=== PATIENT | male | born 1955 | race Caucasian/White ===

== ENCOUNTER 2016-07-01 09:40 | Inpatient (IN) | payer BC, OTHER, MEDICARE ==
[~2016-07-01] VITALS: Ht 172.7 cm; Wt 73.2 kg
[~2016-07-01 09:40] MED LIST: **UNRESOLVED NON-FORMULARY MED ORDER XX SCH
[2016-07-01] MEDS ORDERED: DOCUSATE SODIUM 100 MG CAP PO PRN (11:30)
[2016-07-01] MEDS ORDERED: CALCIUM CARBONATE 500 MG CHEW U/D PO PRN (11:30)
[2016-07-01] MEDS ORDERED: ACETAMINOPHEN 325 MG TAB PO PRN (11:30)
[2016-07-01] MEDS ORDERED: NYSTATIN 100,000 UNITS/GM TOPICAL PWD 15 GM TOP PRN (11:30)
[2016-07-01] MEDS ORDERED: TRIAMCINOLONE ACET 0.1% CREAM 80 GM TOP PRN (11:30)
[2016-07-01] MEDS ORDERED: EUCERIN 120GM CREAM TOP PRN (11:30)
[2016-07-01] MEDS ORDERED: SENNA 8.6 MG TAB (SENOKOT) PO PRN (11:30)
[2016-07-01 12:05] VITALS: BP 117/58
[2016-07-01] MEDS ORDERED: NON-FORMULARY 1 EA EA IV SCH (12:15)
[2016-07-01] MEDS ORDERED: HYDROmorphone 2 MG TAB PO PRN (12:15)
[2016-07-01] MEDS: (RENVELA) SEVELAMER **CARBONate** 800 MG TAB PO SCH ×2 (12:30→17:31)
--- NOTE | 2016-07-01 13:14 | CR.PDOC ---
[facility] Consultation Consultation ATTENDING: Dr. Henning PCP: Dr Boogie Rheumatology Dr Barrios [facility] CC: ARU rehab HPI: 61yoM transferred from [facility] to [facility] ARU 07/01/16 following treatment from 05/17/16-07/01/16 for severe sepsis/group A strep bacteremia, severe RLE cellulitis on pre existing pyoderma gangrenosum. Pt states his RLE is continuing to improve. He still is feeling very weak. He continues to have chronic pain in his Rt hip and shoulder. Denies any fevers, chills, MOBLEY, CP, SOB, cough, palpitations, abdominal pain, N/ V/D or changes in bowel or bladder habits. Upon presentation to the hospital the hospitalist team was consulted to assist with medical management. PMH Severe sepsis from Group A Strep bacteremia Severe RLE cellulitis on pre existing pyoderma gangrenosum ZAC progressing to ESRD requiring HD ( h/o CKD) Acute systolic CHF/Sepsis induced CMP. Metabolic encephalopathy chronic rt shoulder pain anemia in CKD. S/P 2 Units PRBC 05/29/16, epo as per Nephro. Cervical DDD chronic narcotic use DM GERD Immunosuppression ( on Remicade/methotrexate/prednisone prior to admission) Monoclonal gammopathy of unknown significance MARCEL OA Sarcoidosis Tourette syndrome PSHX: Rt hip surgery x 2 H/O cervical discectomy bedside exploration of muscles RLE Gen Surgery. [facility]. MRI RLE. [facility]. no necrotizing fasciitis Permacath placement. [facility]. SOCHX: Resides in: [place] uses scooter for mobility in past. 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 Children: Alive, well ROS: As noted in HPI, otherwise 11pt ROS of systems reviewed and remarkable only forchronic Rt hip and shoulder pain. PE: GEN: 61yoM, thin appearing. No acute distress. Alert and oriented x 3. Pleasant , interactive. HEENT: Normocephalic, atraumatic. Pupils are equal, round, and reactive to light. Extraocular movements are intact. No nystagmus appreciated. Sclera are nonicteric. Conjunctiva without injection. Nose midline. Nasal turbinates without bogginess No facial asymmetry. Moist mucous membranes. Dentition poor. Pharynx pink and moist. Neck supple, trachea midline. No lymphadenopathy or thyromegaly appreciated. CHEST: Regular rate and rhythm, +S1, +S2 LUNGS: Clear to auscultation bilaterally. No wheezes, rales, or rhonchi. Breathing appears symmetric and easy. Patient is speaking in full sentences. No accessory muscle use. ABD: Round, soft, non-tender, non-distended. +Bowel sounds throughout. No rebound or guarding. No costovertebral angle tenderness. EXT: Pulses 2+ bilaterally dorsalis pedis and radial. No lower extremity edema appreciated. SKIN: [place], dry, warm. Capillary refill <2sec. Chronic skin changes b/l. Dressing intact RLE. Mild erythema RLE, no warmth noted. NEURO: Alert and oriented x 3. Cranial nerves III-XII are intact. No focal deficits appreciated. XR Rt shoulder pending EKG: pending Labs pending at this time. UA/UC pending. A&P: 61yoM transferred from [facility] to [facility] ARU 07/01/16 following treatment from 05/17/16-07/01/16 for severe sepsis/group A strep bacteremia, severe RLE cellulitis on pre existing pyoderma gangrenosum. Pt states his RLE is continuing to improve. He still is feeling very weak. He continues to have chronic pain in his Rt hip and shoulder. The patient is admitted to ARU to Dr. Henning's service. Pt is discussed with Dr Augustine. Rehab as per Dr Henning. PT/OT Pain mgmt. 1. RLE cellulitis with GAS bacteremia. Cont'd on IV abx. Clindmycin as per d/c recommendations. Labs pending. 2. ZAC with ESRD/HD. Nephrology consulted to manage HD. 3. Anemia in CKD. labs pending. 4. Chronic narcotic use/Chronic pain/Chronic rt shoulder pain/Rt hip pain. Methadone as per attending. Monitor for lethargy. Monitor respiratory status. 5. Acute Systolic CHF/TTE EF 30% at [place] as per D/C Summary. [place] to be related to severe sepsis. Plan is for outpt f/u. No S/Sx of decompensation at this time. 6. MARCEL. BIPAP. Pt is bringing in from home but Pt does not feel it is functioning appropriately and Pulmonary has been consulted to assist with management. 7. Immunocompromise. Previously treated for pyoderma gangrenosum. Was previously on Remicade/prednisone/methotrexate. ALl on hold. Oupt f/u with Rheumatology. 8. DM. CC diet. FSBS. SSI. DVT prophylaxis. The patient is a Full code. Vital Signs/I&O Vital Signs Date Time Temp Pulse Resp B/P Pulse Ox O2 Delivery O2 Flow Rate FiO2 07/01/16 12:05 99.2 80 17 117/58 97 Room Air Allergies Coded Allergies: Sulfamethoxazole w/Trimethoprim (Verified Allergy, Unknown, 07/01/16) Home Medications Scheduled (Liquacel) 1 Liq Liq 1 LIQ PO DAILY (Reported) STARTED AT [facility] (Clindamycin Phosphate in 900 mg/50Ml) 1 Inj Inj 1 INJ IV Q8H (Reported) STARTED AT [facility] (Risperidone) 2 Mg Tab 2 MG PO DAILY (Reported) NEW DOSE STARTED AT [facility] - WAS ON 6MG AT HOME Aspirin (Aspirin 81) 81 Mg Tab 81 MG PO DAILY (Reported) HOME MEDICATION Clonidine Hydrochloride (Clonidine HCl) 0.1 Mg Tab 0.1 MG PO DAILY (Reported) HOME MEDICATION Epoetin Pablo (Epogen) 10,000 Unit/Ml Inj 10,000 UNIT INJ 2XW (Reported) WEDNESDAY AND WEDNESDAY Escitalopram Oxalate (Lexapro) 20 Mg Tab 20 MG PO DAILY (Reported) HOME MEDICATION Eucerin (Eucerin) 1 Cre Cre 1 DOSE TOP BID (Reported) APPLY TO DRY AREAS OF RIGHT LEG/THIGH Folic Acid (Folic Acid) 1 Mg Tab 1 MG PO BID (Reported) HOME MEDICATION Hydromorphone HCl (Hydromorphone HCl ER) 32 Mg Tab 32 MG PO BID (Reported) HOME MEDICATION Insulin Aspart (Novolog) 100 U/Ml Inj 0 SC ACHS (Reported) PER SLIDING SCALE Insulin Detemir (Levemir) 1 Units/0.01 Ml Susp 100 UNITS SC QHS (Reported) HOME MEDICATION Lactobacillus Acidophilus (Bacid) 1 Tab Tab 1 TAB PO BID (Reported) STARTED AT [facility] Metformin Hydrochloride (Metformin HCl) 1,000 Mg Tab 1,000 MG PO QAM (Reported ) HOME MEDICATION Metformin Hydrochloride (Metformin HCl) 500 Mg Tab 500 MG PO QPM (Reported) HOME MEDICATION Methadone HCl (Methadone HCl) 10 Mg Tab 30 MG PO QID (Reported) NEW DOSE STARTED AT [facility] - LAST RX FILLED WAS FOR 50MG QAM, 40MG AT NOON, 40MG QPM, AND 30MG QHS Methotrexate (Methotrexate) 2.5 Mg Tab 10 MG PO QWEEK (Reported) HOME MEDICATION Methylphenidate HCl (Methylphenidate HCl) 20 Mg Tab 20 MG PO TID (Reported) HOME MEDICATION Metoprolol Tartrate (Metoprolol Tartrate) 50 Mg Tab 50 MG PO BID (Reported) STARTED AT [facility] Nystatin (Nystatin Powder) 100,000 Unit/Gm Pow 1 DOSE TOP BID (Reported) STARTED AT [facility] Pantoprazole Sodium (Pantoprazole Sodium) 40 Mg Tab 40 MG PO BID (Reported) STARTED AT [facility] Rosuvastatin Calcium (Crestor) 20 Mg Tab 20 MG PO DAILY (Reported) HOME MEDICATION Sevelamer Carbonate (Renvela) 800 Mg Tab 800 MG PO WM (Reported) STARTED AT [facility] Testosterone (Axiron) 30 Mg/Act Melvina 30 MG TOP DAILY (Reported) Triamcinolone Acet (Triamcinolone Acetonide 0.1% Crm) 1 Dose/15 Gm Cr 1 DOSE TOP BID (Reported) APPLY TO GROIN AREA Kaylen Smith Jul 01, 2016 13:14
[2016-07-01] MEDS ORDERED: INSUH10VL SC (13:26)
[2016-07-01] MEDS ORDERED: TRIA1CR TOP (13:27)
[2016-07-01] MEDS ORDERED: EUCECRE3 TOP (13:28)
[2016-07-01] MEDS ORDERED: LIQULIQ6 PO (13:34)
[2016-07-01] MEDS ORDERED: BACITAB3 PO (13:34)
[2016-07-01] MEDS ORDERED: METO50TA2 PO (13:34)
[2016-07-01] MEDS ORDERED: [UNRECOGNIZED DRUG - CODE] IV (13:34)
[2016-07-01] MEDS ORDERED: PANT40TA2 PO (13:34)
[2016-07-01] MEDS ORDERED: RENV2TAB PO (13:45)
[2016-07-01] MEDS ORDERED: GLUCAGON FOR INJ 1 MG VIAL (J1610) SC PRN (13:45)
[2016-07-01] MEDS ORDERED: DEXTROSE 50% 50 ML SYRINGE IV PRN (13:45)
[2016-07-01] MEDS ORDERED: RISP2TAB3 PO (13:45)
[2016-07-01] MEDS ORDERED: NYST100024 TOP (13:45)
[2016-07-01] MEDS ORDERED: METH10TA2 PO (13:45)
[2016-07-01] MEDS ORDERED: GLUCOSE 4 GM CHEW TABLET PO PRN (13:45)
[2016-07-01] MEDS ORDERED: EPOG1000 INJ (13:51)
[2016-07-01] MEDS ORDERED: METH20TA29 PO (13:59)
[2016-07-01 14:00] VITALS: BP 122/64
[2016-07-01] MEDS ORDERED: CLON-412 PO (14:00)
[2016-07-01] MEDS ORDERED: [UNRECOGNIZED DRUG - CODE] PO (14:01)
[2016-07-01] MEDS ORDERED: CRES20TA PO (14:05)
[2016-07-01] MEDS ORDERED: METF500T PO (14:05)
[2016-07-01] MEDS ORDERED: METF1000 PO (14:05)
[2016-07-01] MEDS ORDERED: FOLI1TAB2 PO (14:05)
[2016-07-01] MEDS ORDERED: METH2.5TA PO (14:05)
[2016-07-01] MEDS ORDERED: INSUDET SC (14:05)
[2016-07-01] MEDS ORDERED: LEXA1TAB2 PO (14:05)
[2016-07-01] MEDS ORDERED: AXIR30SO TOP (14:05)
[2016-07-01] MEDS ORDERED: ASPI1TAB PO (14:07)
[2016-07-01] MEDS: METHADONE 10 MG TAB (S0109) PO SCH ×2 (15:32→21:14)
--- NOTE | 2016-07-01 15:44 | REP ---
RIGHT SHOULDER: Three views of the right shoulder are performed. I see no acute fracture or dislocation. There is mild narrowing at the acromioclavicular joint. There is moderate narrowing, subchondral sclerosis, and spurring at the glenohumeral joint. There is heterogenous density in the region of the neck of the humerus. This could be related to an old fracture, but a subtle underlying bone lesion cannot totally be excluded. IMPRESSION: Moderate degenerative changes. Subtle heterogeneous density in the humeral neck with ill-defined areas of low and high density in this region. This could be related to a prior fracture. I cannot exclude an underlying bone lesion. Further evaluation could be made with MRI. A bone scan could be obtained to evaluate for possible osseous metastases elsewhere in the body. Signed by Tor Mack MD 07/01/2016 04:28 P
[2016-07-01] MEDS: CLINDAMYCIN 900 MG in APPROPRIATE DILUENT 1 EA IV SCH ×2 (16:25→21:14)
[2016-07-01] MEDS: HumaLOG INSULIN (NovoLOG) PER UNIT SC SCH (17:31)
[2016-07-01 20:30] VITALS: BP 125/66
[2016-07-01] MEDS: METOPROLOL TART 50 MG TAB PO SCH (21:13)
[2016-07-01] MEDS: LACTOBACILLUS ACIDOPHILUS CAP (BACID) PO SCH (21:13)
--- NOTE | 2016-07-02 01:26 | PMRHPE ---
DATE OF ADMISSION: 07/01/2016 CHIEF COMPLAINT: Debilitation secondary to infection from vasculitis. 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 This resulted in patient developing acute kidney injury on top of his end-stage renal disease that now required dialysis, and increased cardiac demands cause acute systolic dysfunction and demand ischemia in the heart. This contributed to metabolic encephalopathy along with patient's chronic opiate use for his chronic right shoulder pain, which is related to his Tourette's syndrome. Patient also with anemia and electrolyte imbalance. He was admitted to [facility] on 05/17/2016 and evaluated, including procedures to review for necrotizing fasciitis. Those proved negative. Patient initially started on vancomycin and then transitioned to clindamycin and ceftazidime and is now on clindamycin intravenous (IV) for the next 2 weeks. He has shown improvement in his overall attention, concentration, and function. His renal improvement has transitioned to the point he is now on dialysis two times a week. His last dialysis was yesterday. Patient on entering the hospital was on methadone 140 mg in divided doses per day; however, due to the cognitive impairment, he was cut down to 90 mg. Had difficulty with that and was transitioned back to 120 mg per day. He has also had elevated phosphate. Patient felt to be advancing well enough to transition to acute rehabilitation unit and was transferred to [facility] Acute Rehabilitation Unit today, 07/01/2016. PAST MEDICAL HISTORY: With diagnoses noted above, also includes: 1. Type 2 diabetes mellitus. 2. Chronic obstructive pulmonary disease (COPD), treated with bilevel positive airway pressure (BiPAP), but patient has stopped the BiPAP as he feels the settings are off and does not have a good fit for pressure and possibly the mask. 3. Tourette's syndrome. 4. Hyperlipidemia. FAMILY HISTORY: Noncontributory. SOCIAL HISTORY: Patient lives with his in [place], [place]. They have an accessible house. 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 He uses scooter in the hospital for mobility when he is working. ALLERGIES: BACTRIM. MEDICATIONS ON ADMISSION: - Protonix - risperidone - LiquaCel liquid protein, - Lopressor - a probiotic - insulin on a sliding scale before meals and at bedtime - methadone 40 mg three times a day - clindamycin 900 mg intravenous (IV) every 8 hours for the next 14 days - Sevelamer 800 mg daily - hydromorphone 2 mg every 4 hours for breakthrough pain - Procrit 1000 units twice a week for his anemia - Tylenol 650 mg every 6 hours as needed for pain - calcium carbonate 1 gram every 4 hours as needed for dyspepsia - Colace 100 mg every 12 hours as needed for constipation - Senokot two tablets at bedtime as needed for constipation - nystatin powder twice a day as needed rash to bi-folds - triamcinolone 0.1% cream twice a day to topical rash REVIEW OF SYSTEMS: Patient without fever, chills, or general malaise at this time, just weakness. HEENT: Denies visual or other HEENT problems. PULMONARY: Does continue to have some shortness of breath, especially with activity, otherwise negative. Does not feel comfortable with his current BiPAP settings. GASTROINTESTINAL: Negative. MUSCULOSKELETAL: Pain and stiffness in the right shoulder and diffuse mild weakness. NEUROLOGIC: The Tourette's syndrome and feeling tired and anxious from the trip. PHYSICAL EXAMINATION: Patient is an average height, average weight, middle-aged white male lying in bed with no right shoulder movement and in mild musculoskeletal distress. VITAL SIGNS: Temperature 98.9, blood pressure 122/64, pulse 76, respirations 17, and pulse oximetry 98% on room air. HEENT: Normocephalic, atraumatic. Speech is clear, coherent, and appropriate. Tongue does deviate to the right, and there is a slight droop to the right face. Patient's neck shows some increased tone and stiffness with multiple tender points and some turning, causing the head to face slightly down and to the left; however, is angled in the vertical plane to the right. LUNGS: Clear in all lin to auscultation. CORONARY; Shows a regular rate and rhythm with normal S1, S2. 2/4 radial pulses. ABDOMEN: With mild gaseous distention. Positive for tympani throughout but no palpable masses or tenderness. Bowel sounds are present in all quadrants. EXTREMITIES: Functional range of motion of the left upper and bilateral lower extremities as well as right elbow, hands, and wrist with some loss of tone. Muscle mass in the distal right upper extremity slightly less than the left distal upper extremity and lower extremities with color changes of the skin secondary to his recurrent stasis and cellulitis. He has several healing wounds and incisions in the right leg, most prominently middle anterior mid lopes but also down lateral ankle region and then distal medial thigh. No heat or drainage is found. He is flaking off some calluses off of both feet. Tone is increased in the right shoulder; otherwise within functional limits in the rest of the extremities. Mood is pleasant and cooperative. Patient is alert and oriented times four. Speech is clear, coherent, and appropriate; however, he does have interjections of profanities and other exclamations consistent with the Tourette's syndrome. Light touch shows some mild decrease in the calves bilaterally but is grossly intact in bilateral upper and lower extremities otherwise. ADMITTING DIAGNOSES: 1. Rehabilitation of debilitation secondary to vasculitis and recent sepsis. PLAN: Admit to the acute rehabilitation unit for a course of physical therapy (PT), occupational therapy (OT), and speech therapy to work this around his dialysis requirement. Patient's overall endurance may not allow for 3 hours per day, but he does require more acute medical management and observation, so therapy will be paced accordingly. Should anticipate at least 8 hours of therapy per week. 2. Acute kidney injury on top of chronic renal disease. Consulting nephrology. 3. Right shoulder pain. Will go ahead and continue patient on his current methadone 40 mg three times a day and change Dilaudid to 2 mg every 4 hours for breakthrough pain but will look toward getting shoulder x-ray and possible trigger oint or consider other injections or tone-limiting techniques to try and mobilize the shoulder and hopefully decrease some of that pain along with increasing patient's overall function and ability to use his right upper extremity, assist with transfers and mobility. 4. Group A streptococcus bacteremia and sepsis. Will complete course of clindamycin. 5. Anemia. Will continue e-poietin and check complete blood count (CBC) with differential tomorrow and then monitor [id number] CBCs. 6. Electrolytes imbalance. Will check complete metabolic panel and will be monitoring with basic metabolic panel so this is more for the renal function. 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 His has been very supportive, and patient has been disabled, immobility for a number of years, and finds ways to compensate along with the help of his , such that he remains productive and working. First goal of patient and his is his ability to return to home. Second is to possibly return back to working. I think these are both valid goals and well worth a trial of rehabilitation. As noted above, I do not think patient will initially be able to participate in 3 hours of therapy 5 days a week but will pace it according to his multiple medical problems. I do anticipate his discharge will be to home with his very supportive and that he has a good prognosis for this. My estimated length of stay is 14-18 days. Time spent on chart review, history and physical, and documentation is greater than 70 minutes. PITA
[2016-07-02 05:06] VITALS: BP 106/55
[2016-07-02] MEDS: CLINDAMYCIN 900 MG in APPROPRIATE DILUENT 1 EA IV SCH ×3 (05:45→21:55)
[2016-07-02 06:55] LABS: BASO % 0.6 % (0.0-1.0); EOS # 0.4 K/mm3 (0.0-0.50); EOS % 7.3 % (0.0-3.0); LARGE UNSTAINED CELL # 0.2 K/mm3 (0.0-0.4); LARGE UNSTAINED CELL % 2.9 % (0.0-4.0); LYMPH % 16.6 % (24.0-44.0); MEAN CORPUSCULAR HEMOGLOBIN 26.3 pg (27.0-33.0); MEAN CORPUSCULAR VOLUME 84.9 fl (80.0-96.0); MONO # 0.4 K/mm3 (0.0-0.8); MONO % 8.2 % (0.0-5.0); NEUTROPHILS # 3.3 K/mm3 (1.8-7.7); NEUTROPHILS % 64.4 % (36.0-66.0); PLATELET COUNT, AUTOMATED 253 k/mm3 (150-450); RED CELL DISTRIBUTION WIDTH 16.1 % (11.5-14.5); WHITE BLOOD COUNT 5.2 K/mm3 (4.0-10.0)
[2016-07-02 07:12] LABS: ALBUMIN 2.2 GM/DL (3.2-5.2); ALBUMIN/GLOBULIN RATIO 0.42 (1.00-1.93); ALKALINE PHOSPHATASE 336 U/L (45-117); ALT/SGPT 34 U/L (12-78); ANION GAP 10 MEQ/L (8-16); AST/SGOT 24 U/L (15-37); BILIRUBIN,TOTAL 0.3 MG/DL (0.2-1.0); BLOOD UREA NITROGEN 58 MG/DL (7-18); CALCIUM LEVEL 8.5 MG/DL (8.8-10.2); CARBON DIOXIDE LEVEL 29 MEQ/L (21-32); CHLORIDE LEVEL 96 MEQ/L (98-107); CHOLESTEROL LEVEL 137 MG/DL (<200); CREATININE FOR GFR 4.38 MG/DL (0.70-1.30); FERRITIN 163 NG/ML (26-388); GLOMERULAR FILTRATION RATE 14.8 (>49); GLUCOSE, FASTING 150 MG/DL (80-110); PERCENT SATURATION 17.5 % (19.7-37.4); SODIUM LEVEL 135 MEQ/L (136-145); TOTAL IRON BINDING CAPACITY 223 UG/DL (250-450); TOTAL PROTEIN 7.5 GM/DL (6.4-8.2); TRIGLYCERIDES LEVEL 269 MG/DL (<150)
[2016-07-02] MEDS: HumaLOG INSULIN (NovoLOG) PER UNIT SC SCH ×3 (08:25→17:33)
[2016-07-02] MEDS: (RENVELA) SEVELAMER **CARBONate** 800 MG TAB PO SCH ×3 (08:26→17:33)
[2016-07-02] MEDS: LACTOBACILLUS ACIDOPHILUS CAP (BACID) PO SCH ×2 (08:27→21:53)
[2016-07-02] MEDS: PANTOPRAZOLE 40MG TAB (PROTONIX) PO SCH (08:27)
[2016-07-02] MEDS: METHADONE 10 MG TAB (S0109) PO SCH ×3 (08:27→21:55)
[2016-07-02] MEDS: METOPROLOL TART 50 MG TAB PO SCH ×2 (08:27→21:54)
[2016-07-02] MEDS: risperiDONE 2 MG TAB PO SCH (08:28)
[2016-07-02] MEDS ORDERED: NON-FORMULARY 1 EA EA PO SCH (09:00)
[2016-07-02] MEDS ORDERED: IRON SUCROSE 100 MG/5 ML INJ (J1756) IV SCH (09:45)
--- NOTE | 2016-07-02 12:51 | ECGEPIP ---
Stationary ECG Study [facility] Test Date: 2016-07-02 Pat Name: ISRA RM Department: Room: [place] [address] Gender: M [employer] Person: : 1955 Requested By: Kaylen Smith Order Number: [id number] Reading MD: Scott Fonseca Measurements Intervals [place] Rate: 74 P: 21 LA: 172 QRS: 12 QRSD: 84 T: 49 QT: 417 QTc: 463 Interpretive Statements SINUS RHYTHM Normal Electronically Signed On 07-02-2016 12:51:21 EDT by Scott Fonseca
--- NOTE | 2016-07-02 13:15 | IPNPDOC ---
Subjective Date Seen The patient was seen on 07/02/16. Subjective Chief Complaint/HPI The patient is a 61-year-old male admitted with a reason for visit of Severe Sepsis. Events since last encounter Pt states pain better today. No new complaints. ENT: Denies: Dysphagia, Ear Pain, Head Aches Skin: Denies: Breakdown, Lesions, Rash Pulmonary: Denies: Cough, Dyspnea Cardiovascular: Denies: Chest Pain, Lt Headedness, Orthopnea, Palpitations, Paroxysmal Noc. Dyspnea Gastrointestinal: Denies: Abdominal Pain, Constipation, Diarrhea, Nausea, Vomiting Objective Physical Examination General Exam: Positive: Alert Eye Exam: Positive: PERRLA ENT Exam: Positive: Atraumatic, Mucous membr. moist/pink, Pharynx Normal Chest Exam: Positive: Clear to auscultation, Normal air movement Heart Exam: Positive: Normal S1, Normal S2, Rate Normal, Regular Rhythm, Negative: Murmurs, Rubs Extremity Exam: Positive: Other (RLE erythema and wounds cont to be improving. ), Negative: Edema, Swelling, Tenderness Assessment /Plan Problems (1) Cellulitis of right leg Status: Chronic Problem Text: * GAS Bacteremia * IV Clinda as per D/C recommendations x 14 days * Afebrile * No leukocytosis (2) MARCEL (obstructive sleep apnea) Status: Chronic Problem Text: * BIPAP machine pending him home * Pt states it was not functioning appropriately * Pulmonary is consulted for further fitting and management. (3) Immunocompromised Status: Chronic Problem Text: * Outpatient medications are on hold. 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 (4) ESRD (end stage renal disease) Status: Chronic Problem Text: * Hemodialysis as per nephrology (5) Chronic pain Status: Chronic Problem Text: * Pain management as per attending * Methadone * Monitor for lethargy and respiratory status. (6) Anemia in CKD (chronic kidney disease) Status: Chronic Problem Text: * Aranesp as per nephrology * Iron supplement * monitor (7) CHF (congestive heart failure) Status: Chronic Problem Text: * No signs of decompensation at this time. * Monitor (8) Diabetes mellitus type 2 with complications Status: Chronic Problem Text: * CC diet * Sliding scale insulin Plan/VTE VTE Prophylaxis Ordered?: No (as per attending) Disposition as per ARU VS, I&O, 24H, Fishbone Vital Signs/I&O Vital Signs Date Time Temp Pulse Resp B/P Pulse Ox O2 Delivery O2 Flow Rate FiO2 07/02/16 08:27 18 Room Air 07/02/16 08:27 78 106/55 07/02/16 05:06 98.1 97 I&O- Last 24 Hours up to 6 AM 07/02/16 06:00 Intake Total 1250 ml Output Total 1025 ml Balance 225 ml Laboratory Data 24H LABS Laboratory Tests 2 07/01/16 13:17: Bedside Glucose (Misc Panel) 200H 07/01/16 16:35: Bedside Glucose (Misc Panel) 195H 07/01/16 19:11: Urine Amorphous Sediment , Urine Appearance CLEAR, Urine Color STRAW, Urine pH 8.0, Urine Specific [place] 1.006, Urine Protein 1+H, Urine Glucose (UA) 1+H, Urine Ketones NEGATIVE, Urine Urobilinogen 0.2, Urine Bilirubin NEGATIVE, Urine Leukocyte Esterase NEGATIVE, Urine Bacteria (Auto) NEGATIVE, Urine Blood NEGATIVE, Urine Calcium Carbonate Cryst(Auto) , Urine Calcium Oxalate Cryst ( Auto) , Urine Calcium Phosphate [place] (Auto) , Urine Cellular Casts , Urine Cystine Crystals , Urine Granular Casts (Auto) , Urine Hyaline Casts (Auto) 0, Urine Leucine Crystals , Urine Mucus (Auto) SMALL, Urine Nitrite NEGATIVE, Urine Oval Fat Bodies (Auto) , Urine RBC (Auto) 1, Urine Renal Epithelial Cells , Urine Sperm (Auto) , Urine Squamous Epithelial Cells 0, Urine Transitional Epithelial Cells , Urine Trichomonas (Auto) , Urine Triple Phosphate Cryst (Auto ) , Urine Tyrosine Crystals , Urine Uric Acid Crystals (Auto) , Urine WBC (Auto ) 1, Urine Waxy Casts (Auto) , Urine Yeast-Like Cells (Auto) 07/01/16 19:57: Bedside Glucose (Misc Panel) 178H 07/02/16 06:28: Blood Urea Nitrogen 58H, Creatinine 4.38H, Sodium Level 135L, Potassium Level 4.0, Chloride Level 96L, Carbon Dioxide Level 29, Calcium Level 8.5L, Aspartate Amino Transf (AST/SGOT) 24, Alanine Aminotransferase (ALT/SGPT) 34, Alkaline Phosphatase 336H, Total Bilirubin 0.3, Triglycerides Level 269H, Cholesterol Level 137, HDL Cholesterol 30L, LDL Cholesterol 53.2, Total Protein 7.5, Albumin 2.2L, Albumin/Globulin Ratio 0.42L, Anion Gap 10, White Blood Count 5.2 , Red Blood Count 3.14L, Hemoglobin 8.3L, Hematocrit 26.7L, Mean Corpuscular Volume 84.9, Mean Corpuscular Hemoglobin 26.3L, Mean Corpuscular Hemoglobin Concent 31.0L, Red Cell Distribution Width 16.1H, Platelet Count 253, Neutrophils (%) (Auto) 64.4, Lymphocytes (%) (Auto) 16.6L, Monocytes (%) (Auto) 8.2H, Eosinophils (%) (Auto) 7.3H, Basophils (%) (Auto) 0.6, Neutrophils # (Auto ) 3.3, Lymphocytes # (Auto) 1.0L, Monocytes # (Auto) 0.4, Eosinophils # (Auto) 0.4, Basophils # (Auto) 0.0, Cholesterol/HDL Ratio 4.566, Ferritin 163, Glomerular Filtration Rate 14.8L, Iron Level 39L, Large Unclassified Cells # 0.2 , Large Unclassified Cells % 2.9, Non-HDL Cholesterol (LDL + VLDL) 107, Parathyroid Hormone (Intact) < 6.3L, Total Iron Binding Capacity 223L, Transferrin % Saturation 17.5L 07/02/16 11:42: Bedside Glucose (Misc Panel) 139H CBC/BMP Laboratory Tests 07/02/16 06:28 Calcium Level 8.5 L, Aspartate Amino Transf (AST/SGOT) 24, Alanine Aminotransferase (ALT/SGPT) 34, Alkaline Phosphatase 336 H, Total Bilirubin 0.3 , Triglycerides Level 269 H, Cholesterol Level 137, HDL Cholesterol 30 L, LDL Cholesterol 53.2, Total Protein 7.5, Albumin 2.2 L, Red Blood Count 3.14 L, Mean Corpuscular Volume 84.9, Mean Corpuscular Hemoglobin 26.3 L, Mean Corpuscular Hemoglobin Concent 31.0 L, Red Cell Distribution Width 16.1 H, Neutrophils (%) (Auto) 64.4, Lymphocytes (%) (Auto) 16.6 L, Monocytes (%) (Auto ) 8.2 H, Eosinophils (%) (Auto) 7.3 H, Basophils (%) (Auto) 0.6, Neutrophils # ( Auto) 3.3, Lymphocytes # (Auto) 1.0 L, Monocytes # (Auto) 0.4, Eosinophils # ( Auto) 0.4, Basophils # (Auto) 0.0 Microbiology Microbiology 07/01/16 Urine Culture - Final, Complete Kaylen Smith Jul 02, 2016 13:15
[2016-07-02 14:00] VITALS: BP 118/69
--- NOTE | 2016-07-02 16:27 | IPNPDOC ---
Heel Trimmer Progress Note DATE OF SERVICE: 07/02/2016 DATE OF ADMISSION: Jul 01, 2016 at 12:05 INPATIENT REHABILITATION ADMISSION DAY: #1 SUBJECTIVE: Patient is a 61-year-old 8 male with vasculitis caused leg infection /pyroderma gangrenosa. Patient also with Tourette's syndrome and appears to have right sided increased tone related to it causing limitation in right shoulder and hip function. Patient currently without fever or chills improving leg color and circulation and general decrease in pain. Our pain more notably decrease with physical therapy applying techniques to diminish right body tone with the patient reporting pain going from 7 to 3/10 following that. ALLERGIES: See Below MEDICATIONS: Reviewed, see below. OBJECTIVE: VITAL SIGNS: Please see below. PHYSICAL EXAMINATION: GENERAL: Well-developed middle-aged white male who is alert and oriented 4. Speech therapy noting some short-term memory problems otherwise cognitively intact. Speech is clear coherent and appropriate except for the Tourette's syndrome speech and injections. HEENT: Patient with head tilt and left rotation secondary increased neck tone and right tongue deviation. CARDIOVASCULAR: Regular rate and rhythm with normal S1 and S2. EKG results below LUNGS: All lin clear to auscultation. ABDOMEN: Benign with bowel sounds in all quadrants. NEUROLOGICAL: As noted above with motor in the 3 to 4/5 inside his active range of motion which is markedly decreased for the right hip and right shoulder. SKIN: Improving color and apparent perfusion in the legs with flaking of calluses in the soles and heels. LABORATORY DATA: Reviewed. Please see below. MICROBIOLOGY: Please see below. IMAGING: Moderate DJD of the right shoulder DVT prophylaxis ordered?: EC ASA 81 mg starting today. ASSESSMENT AND PLAN: 1. Rehabilitation of vasculitis and secondary infection with deconditioning related to the sepsis: Patient starting physical occupational therapies today and had speech therapy assessment today. Patient had been fairly limited during the last 2 years and slowly declining in his overall mobility and ADLs. However in light of the toe on the right side as response to treatment techniques it is possible I believe to increase right sided mobility and allow for increase in AROM &functional strength there which will allow patient their ability to use both upper and lower extremities and more potential independence in ADLs and mobility. To this and I am consulting Dr. Jorge Stock MD an interventialist restaurant delivery driver to assess the patient for Botox trial to right shoulder and hip along with physical therapy continuing tone modifying techniques. If these are successful marked improvement in the patient's feels over his pre-morbid ones is obtainable which would markedly improved the quality of life of him and his . ELOS 15 days. 2. Acute kidney injury on chronic renal disease: Dr. Hernandez to assess today and set schedule. 3. Tourette's syndrome and anxiety: I am reordering patient's Ritalin hopefully this will be helpful for both these. 4. EKG: Stationary ECG Study [facility] Test Date: 2016-07-02 Pat Name: ISRA RM Department: Room: [place] [address] Gender: M Hematology Technician: : [id number] Requested By: Kaylen Smith Order Number: [id number] Reading MD: Scott Fonseca Measurements Intervals [place] Rate: 74 P: 21 SC: 172 QRS: 12 QRSD: 84 T: 49 QT: 417 QTc: 463 Interpretive Statements SINUS RHYTHM Normal Electronically Signed On 07-02-2016 12:51:21 EDT by Scott Fonseca DD: Scott Fonseca MD, [facility] 07/02/16 1210 DT: EP 07/02/16 1251 DS: WILMARQUISE 07/02/16 1251 07/02/16 1251 DS2: FIM: Still initials being processed. MR# Initials Goal Date=> [id number] OP 07/01/2016 07/02/2016 Self-Care Eating 5 [place] 3 Bath 1 Dress U 3 Dress L 1 Toilet 1 Spincther Bladder 6 6 Bowel 6 6 Transfers B/C/Wc 4 3 Toilet 3 Shower 0 Locomot. W/WC 2 3 Stairs 0 Compre 6 6 Express 6 6 Social Int. 6 6 Prob. Melvina. 6 6 Memory 6 5 Total 65 41 TIME SPENT: Chart Review, examination and documentation greater than 35 minutes including team conference. Allergies Coded Allergies: Sulfamethoxazole w/Trimethoprim (Verified Allergy, Unknown, 07/01/16) Vital Signs Vital Signs Date Time Temp Pulse Resp B/P Pulse Ox O2 Delivery O2 Flow Rate FiO2 07/02/16 14:00 98.7 87 18 118/69 97 Room Air Laboratory Data CBC/BMP Laboratory Tests 07/02/16 06:28 Calcium Level 8.5 L, Aspartate Amino Transf (AST/SGOT) 24, Alanine Aminotransferase (ALT/SGPT) 34, Alkaline Phosphatase 336 H, Total Bilirubin 0.3 , Triglycerides Level 269 H, Cholesterol Level 137, HDL Cholesterol 30 L, LDL Cholesterol 53.2, Total Protein 7.5, Albumin 2.2 L, Red Blood Count 3.14 L, Mean Corpuscular Volume 84.9, Mean Corpuscular Hemoglobin 26.3 L, Mean Corpuscular Hemoglobin Concent 31.0 L, Red Cell Distribution Width 16.1 H, Neutrophils (%) (Auto) 64.4, Lymphocytes (%) (Auto) 16.6 L, Monocytes (%) (Auto ) 8.2 H, Eosinophils (%) (Auto) 7.3 H, Basophils (%) (Auto) 0.6, Neutrophils # ( Auto) 3.3, Lymphocytes # (Auto) 1.0 L, Monocytes # (Auto) 0.4, Eosinophils # ( Auto) 0.4, Basophils # (Auto) 0.0 Labs 24H Laboratory Tests 2 07/01/16 16:35: Bedside Glucose (Misc Panel) 195H 07/01/16 19:11: Urine Amorphous Sediment , Urine Appearance CLEAR, Urine Color STRAW, Urine pH 8.0, Urine Specific [place] 1.006, Urine Protein 1+H, Urine Glucose (UA) 1+H, Urine Ketones NEGATIVE, Urine Urobilinogen 0.2, Urine Bilirubin NEGATIVE, Urine Leukocyte Esterase NEGATIVE, Urine Bacteria (Auto) NEGATIVE, Urine Blood NEGATIVE, Urine Calcium Carbonate Cryst(Auto) , Urine Calcium Oxalate Cryst ( Auto) , Urine Calcium Phosphate [place] (Auto) , Urine Cellular Casts , Urine Cystine Crystals , Urine Granular Casts (Auto) , Urine Hyaline Casts (Auto) 0, Urine Leucine Crystals , Urine Mucus (Auto) SMALL, Urine Nitrite NEGATIVE, Urine Oval Fat Bodies (Auto) , Urine RBC (Auto) 1, Urine Renal Epithelial Cells , Urine Sperm (Auto) , Urine Squamous Epithelial Cells 0, Urine Transitional Epithelial Cells , Urine Trichomonas (Auto) , Urine Triple Phosphate Cryst (Auto ) , Urine Tyrosine Crystals , Urine Uric Acid Crystals (Auto) , Urine WBC (Auto ) 1, Urine Waxy Casts (Auto) , Urine Yeast-Like Cells (Auto) 07/01/16 19:57: Bedside Glucose (Misc Panel) 178H 07/02/16 06:28: Blood Urea Nitrogen 58H, Creatinine 4.38H, Sodium Level 135L, Potassium Level 4.0, Chloride Level 96L, Carbon Dioxide Level 29, Calcium Level 8.5L, Aspartate Amino Transf (AST/SGOT) 24, Alanine Aminotransferase (ALT/SGPT) 34, Alkaline Phosphatase 336H, Total Bilirubin 0.3, Triglycerides Level 269H, Cholesterol Level 137, HDL Cholesterol 30L, LDL Cholesterol 53.2, Total Protein 7.5, Albumin 2.2L, Albumin/Globulin Ratio 0.42L, Anion Gap 10, White Blood Count 5.2 , Red Blood Count 3.14L, Hemoglobin 8.3L, Hematocrit 26.7L, Mean Corpuscular Volume 84.9, Mean Corpuscular Hemoglobin 26.3L, Mean Corpuscular Hemoglobin Concent 31.0L, Red Cell Distribution Width 16.1H, Platelet Count 253, Neutrophils (%) (Auto) 64.4, Lymphocytes (%) (Auto) 16.6L, Monocytes (%) (Auto) 8.2H, Eosinophils (%) (Auto) 7.3H, Basophils (%) (Auto) 0.6, Neutrophils # (Auto ) 3.3, Lymphocytes # (Auto) 1.0L, Monocytes # (Auto) 0.4, Eosinophils # (Auto) 0.4, Basophils # (Auto) 0.0, Cholesterol/HDL Ratio 4.566, Ferritin 163, Glomerular Filtration Rate 14.8L, Iron Level 39L, Large Unclassified Cells # 0.2 , Large Unclassified Cells % 2.9, Non-HDL Cholesterol (LDL + VLDL) 107, Parathyroid Hormone (Intact) < 6.3L, Total Iron Binding Capacity 223L, Transferrin % Saturation 17.5L 07/02/16 11:42: Bedside Glucose (Misc Panel) 139H Microbiology Microbiology 07/01/16 Urine Culture - Final, Complete Current Medications Current Medications Current Medications Acetaminophen (Tylenol Tab) 650 mg Q6HP PRN PO PAIN; Start 07/01/16 at 11:30; Stop 07/31/16 at 11:29 Calcium Carbonate (Tums) 1,000 mg Q4HP PRN PO HEARTBURN; Start 07/01/16 at 11: 30; Stop 07/31/16 at 11:29 Clindamycin Phosphate/IV Miscellaneous Supplies (Cleocin) 50 ml @ 50 mls/hr Q8H IV Last administered on 07/02/16 14:02; Start 07/01/16 at 14:00; Stop at 13:59 Darbepoetin Pablo (Aranesp (Dialysis Use)) 200 mcg HD IV ; Start 07/03/16 at 08: 00; Stop 08/02/16 at 07:59 Dextrose (Dextrose 50%) 25 ml ASDIRECTED PRN IV SEE LABEL COMMENTS; Start 07/01 at 13:45; Stop 07/31/16 at 13:44 Docusate Sodium (Colace) 100 mg Q12HP PRN PO CONSTIPATION; Start 07/01/16 at 11 :30; Stop 07/31/16 at 11:29 Glucagon (Glucagon) 1 mg ASDIRECTED PRN SC SEE LABEL COMMENTS; Start 07/01/16 at 13:45; Stop 07/31/16 at 13:44 Glucose (Glucose) 16 GM ASDIRECTED PRN PO SEE LABEL COMMENTS; Start 07/01/16 at 13:45; Stop 07/31/16 at 13:44 Home Med (Med Rec Complete!) ASDIRECTED XX ; Start 07/01/16 at 14:15; Stop 03/07 at 14:22; Status DC Hydromorphone HCl (Dilaudid) 2 mg Q4HP PRN PO MODERATE/SEVERE PAIN (PS 5-10); Start 07/01/16 at 12:15; Stop 07/08/16 at 09:00 Insulin Human Lispro (HumaLOG INSULIN) SEE PROTOCOL TABLE AC SC Last administered on 07/02/16 12:29; Start 07/01/16 at 17:30; Stop 07/31/16 at 17:29 Iron (Venofer) 100 mg HD IV ; Start 07/02/16 at 09:45; Stop 07/06/16 at 09:46 Lactobacillus Acidophilus (Bacid) 1 ea BID PO Last administered on 07/02/16 08 :27; Start 07/01/16 at 21:00; Stop 07/31/16 at 20:59 Methadone HCl (Dolophine) 40 mg TID PO Last administered on 07/02/16 08:27; Start 07/01/16 at 16:00; Stop 07/03/16 at 10:00 Methylphenidate HCl (Ritalin) 20 mg BID@08,12 PO ; Start 07/03/16 at 08:00; Stop 07/10/16 at 07:59 Metoprolol Tartrate (Lopressor) 50 mg BID PO Last administered on 07/02/16 08: 27; Start 07/01/16 at 21:00; Stop 07/31/16 at 20:59 Mineral Oil/White Petrolatum (Eucerin) TO DRY AREAS ON RT L... BID PRN TOP Dry skin; Start 07/01/16 at 11:30; Stop 07/31/16 at 11:29 Miscellaneous (Unresolved Non-Formulary Med Order) SEE LABEL COMMENTS UNRESOLVED XX ; Start 07/01/16 at 00:01; Stop 07/31/16 at 00:00 Non-Formulary Medication Liquacel Ligquid Prot... DAILY PO ; Start 07/02/16 at 09:00; Stop 07/02/16 at 09:51; Status DC Non-Formulary Medication Procrit 10,000 Unitis... 2XW IV ; Start 07/01/16 at 12: 15; Stop 07/02/16 at 09:50; Status DC Nystatin (Mycostatin Powder, Nystop) BIDP PRN TOP RASH; Start 07/01/16 at 11: 30; Stop 07/31/16 at 11:29 Pantoprazole Sodium (Protonix) 40 mg DAILY PO Last administered on 07/02/16 08 :27; Start 07/02/16 at 09:00; Stop 08/01/16 at 08:59 Risperidone (RisperDAL) 2 mg DAILY PO Last administered on 07/02/16 08:28; Start 07/02/16 at 09:00; Stop 08/01/16 at 08:59 Senna (Senokot) 2 tab QHSP PRN PO CONSTIPATION; Start 07/01/16 at 11:30; Stop 07/31/16 at 11:29 Sevelamer Carbonate (Renvela) 800 mg WM PO Last administered on 07/02/16 12:29 ; Start 07/01/16 at 12:30; Stop 07/31/16 at 12:29 Triamcinolone Acetonide (Kenalog 0.1% Cream) prn fungal rash for 7 Days BID PRN TOP RASH Last administered on 4/13/17at 08:31; Start 07/01/16 at 11:30; Stop 07/08/16 at 11:29 CHRIS DUMONT MD Jul 02, 2016 16:24
[2016-07-02] MEDS: ASPIRIN 81 MG ENTERIC TAB PO SCH (17:33)
--- NOTE | 2016-07-02 20:05 | PMRCR ---
DATE OF CONSULTATION: 07/02/2016 REQUESTING PHYSICIAN: Jose Henning MD CONSULTING PHYSICIAN: Haily Hernandez MD REASON FOR CONSULTATION: Management of end-stage renal disease and hemodialysis. CHIEF COMPLAINT: Patient was transferred from [place] to our acute rehabilitation unit because of debilitation. HISTORY OF PRESENT ILLNESS: Mr. Geovany Neves is a 61-year-old male with a past medical history of diabetes mellitus type 2, chronic obstructive pulmonary disease (COPD), history of pyoderma gangrenosum. Patient was admitted to [facility] in [place] from 05/13/2016 to 07/01/2016. He got severe sepsis and group A Streptococcus bacteremia secondary to right lower extremity cellulitis on top of his preexisting pyoderma gangrenosum. Because of severe sepsis, patient developed acute tubular necrosis (ATN) and acute renal failure. He had to be started on dialysis. However, as per transferring weatherization operations manager, Dr. Nuñez from [place], patient's kidney function is slightly improving and right now patient is getting twice a week hemodialysis and he is making more than a liter of urine a day. Patient was dialyzed yesterday before being transferred to [facility]. Patient is being dialyzed via right internal jugular (IJ) tunneled hemodialysis catheter. Nephrology service was called for further management of end-stage renal disease and arrangement of hemodialysis. PAST MEDICAL HISTORY: Recently patient had severe sepsis from group A Streptococcus bacteremia, recent severe right lower extremity cellulitis, history of pyoderma gangrenosum in the right leg, acute kidney injury requiring hemodialysis, currently hemodialysis dependent, congestive heart failure and sepsis induced cardiomyopathy, chronic right shoulder pain, anemia secondary to end-stage renal disease, chronic narcotic dependence, diabetes mellitus type 2, obstructive sleep apnea, sarcoidosis, Tourette's syndrome, monoclonal gammopathy of undetermined significance. PAST SURGICAL HISTORY: Status post right hip surgery times two, status post cervical discectomy, status post exploration of the right lower extremity muscles at [place] to rule out necrotizing fasciitis, status post Permacath placement. ALLERGIES: Patient is allergic to BACTRIM. FAMILY HISTORY: No significant family history of end-stage renal disease requiring hemodialysis. There is a positive history of Crohn's disease in the family. SOCIAL HISTORY: Patient is actually a resident of [place]. He was in the hospital for the last 2 months almost. 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 He denies any smoking, drug abuse, or alcohol abuse. REVIEW OF SYSTEMS: CONSTITUTIONAL: Patient denies any fevers, chills, rigors, but he does report weakness. EYES: He denies any recent blurry vision or double vision. EARS, NOSE, THROAT (ENT): He denies any dysphagia, odynophagia, ear discharge. CARDIOVASCULAR: He denies any chest pain or palpitations. RESPIRATORY: He denies shortness of breath, cough, or wheezing. GASTROINTESTINAL (GI): He denies nausea, vomiting, diarrhea, or pain in abdomen. MUSCULOSKELETAL: He reports severe debility, inability to walk, and inability to move right leg. CENTRAL NERVOUS SYSTEM (VOLUNTEER SERVICES ASSISTANT): He reports a history of Tourette's syndrome, but he denies any history of seizure or stroke. PSYCHIATRIC: Patient reports vocal tics, otherwise denies any history of anxiety or depression. SKIN: Patient reports pyoderma gangrenosum and right leg cellulitis. HEMATOLOGICAL/ONCOLOGICAL: Patient has anemia and he also reports history of monoclonal gammopathy of undetermined significance. ENDOCRINE: Patient denies diabetes or any thyroid disorder. All other review of systems is negative. PHYSICAL EXAMINATION: GENERAL: Patient is awake, alert, oriented times three, laying in the bed, cooperative, but he has intermittent vocal tics. VITAL SIGNS: Temperature 98.7 degrees Fahrenheit, blood pressure 118/69, pulse 87, respiratory rate 18, saturating at 97% on room air. INTAKE/OUTPUT: Urine output recorded is 1 liter yesterday, 1600 mL so far today since overnight. Weight in the bed scale is 75.7 kg. HEAD and NECK EXAM: Extraocular muscles intact. Pupils equally round and reactive to light. Mucous membranes are moist. Neck is supple, there is no jugular venous distention (JVD). CARDIOVASCULAR: S1, S2, regular rate. No murmur, rub, or gallop. RESPIRATORY: Chest is clear to auscultation bilaterally. Bilateral equal air entry. No rales or rhonchi. ABDOMEN: Soft, positive bowel sounds, nontender. No ascites. No organomegaly. EXTREMITIES: Patient has right lower extremity cellulitis which appears to be healing at this time. Pulses are 2+. Patient is unable to move right leg and right shoulder. CENTRAL NERVOUS SYSTEM (VOLUNTEER SERVICES ASSISTANT): Patient is awake, alert, oriented times three, but he has intermittent vocal tics secondary to Tourette's syndrome. Power is 5/5 in the left arm. He is unable to move right arm and right leg. PSYCHIATRIC: Patient has a normal mood and affect at this time. SKIN: Right leg ulceration and healing cellulitis as mentioned above, otherwise no acute rashes. LYMPH NODES: No cervical, axillary, or inguinal lymphadenopathy. LABORATORY REVIEW: CBC showed WBC 5.2, hemoglobin 8.3, platelets 253. BMP showed sodium 135, potassium 4, chloride 96, bicarbonate 29, BUN 58, creatinine 4.3, GFR is 14.8, calcium 8.5, iron 39, transferrin saturation is 17.5. PTH is less than 6.3. Microbiology: Urine culture is negative so far. IMAGING: Xray of the shoulder on the right side showed moderate degenerative changes and they could not rule out underlying bone lesion. CURRENT MEDICATIONS: Current inpatient medications include: - clindamycin 900 mg IV every 8 hours - Tylenol as needed - aspirin 81 mg - Tums 1 gram by mouth every 4 hours as needed for heartburn - Aranesp 200 mcg IV with hemodialysis - Colace 100 mg every 12 hours - insulin sliding scale - Venofer 100 mg IV with hemodialysis, total of five doses - lactobacillus - methadone 40 mg by mouth three times a day - Ritalin 20 mg by mouth twice a day - Lopressor 50 mg by mouth twice a day - Protonix 40 mg by mouth daily - risperidone 2 mg by mouth daily - Senokot two tablets by mouth nightly as needed - Renvela 800 mg by mouth with meals - Kenalog as needed ASSESSMENT: 61-year-old male who was transferred from an outside hospital to acute rehabilitation unit yesterday. Patient is dialysis dependent at this time, he is getting twice a week hemodialysis. Nephrology service following the patient for management of end-stage renal disease. PLAN: 1. Acute kidney injury secondary to sepsis. Patient is currently hemodialysis dependent. No urgent need of hemodialysis today. He is getting twice a week hemodialysis. Next hemodialysis will be done tomorrow. We shall continue to monitor the patient's creatinine in between hemodialysis sessions and wait for recovery of the kidney function. 2. Anemia secondary to end-stage renal disease. Patient's iron levels are also low. I have ordered a dose of Aranesp with hemodialysis tomorrow. He will also get Venofer 100 mg IV with each hemodialysis session, total of five doses. 3. Right lower extremity cellulitis and recent group A Streptococcus bacteremia. Patient is currently on IV clindamycin at this time. Dose and duration of antibiotics is as per medical team. 4. Hyperphosphatemia. Phosphorous level is not available at this time. Continue current dose of Renvela 800 mg by mouth with meals. Renvela dose will be adjusted according to the phosphorous levels tomorrow. 5. Severe debilitation and inability to walk. Patient is in acute rehabilitation at this time. Physical therapy is as per physical medicine and rehabilitation. 6. Hypertension and cardiomyopathy. Patient's blood pressure is acceptable at this time. Continue current dose of metoprolol 50 mg by mouth twice a day. Thank you for involving us in the care of this patient. We shall be happy to follow the patient along with you tomorrow morning.
[2016-07-02 20:24] VITALS: BP 151/71
[2016-07-03 05:20] VITALS: BP 99/60
[2016-07-03] MEDS: CLINDAMYCIN 900 MG in APPROPRIATE DILUENT 1 EA IV SCH ×3 (05:42→21:17)
[2016-07-03 07:06] LABS: MEAN CORPUSCULAR HEMOGLOBIN 26.7 pg (27.0-33.0); MEAN CORPUSCULAR VOLUME 85.9 fl (80.0-96.0); RED CELL DISTRIBUTION WIDTH 16.1 % (11.5-14.5)
[2016-07-03 07:20] LABS: CALCIUM LEVEL 9.5 MG/DL (8.8-10.2); CREATININE FOR GFR 4.58 MG/DL (0.70-1.30); POTASSIUM SERUM 4.3 MEQ/L (3.5-5.1)
[2016-07-03] MEDS ORDERED: DARBEPOETIN 100 MCG/0.5 ML *DIALYSIS* SYRINGE (J0882) IV SCH (08:00)
[2016-07-03] MEDS: METHADONE 10 MG TAB (S0109) PO SCH ×3 (08:10→21:16)
[2016-07-03] MEDS: risperiDONE 2 MG TAB PO SCH (08:10)
[2016-07-03] MEDS: (RENVELA) SEVELAMER **CARBONate** 800 MG TAB PO SCH ×3 (08:10→17:07)
[2016-07-03] MEDS: LACTOBACILLUS ACIDOPHILUS CAP (BACID) PO SCH ×2 (08:10→21:16)
[2016-07-03] MEDS: ASPIRIN 81 MG ENTERIC TAB PO SCH (08:10)
[2016-07-03] MEDS: HumaLOG INSULIN (NovoLOG) PER UNIT SC SCH ×3 (08:10→17:07)
[2016-07-03] MEDS: PANTOPRAZOLE 40MG TAB (PROTONIX) PO SCH (08:11)
[2016-07-03] MEDS: METOPROLOL TART 50 MG TAB PO SCH ×2 (08:11→21:16)
[2016-07-03] MEDS: METHYLPHENIDATE 5 MG TAB PO SCH ×2 (08:11→12:36)
[2016-07-03] MEDS ORDERED: HEPARIN 1,000 UNITS/ML 10ML VIAL (FOR RADIOLOGY& DIALYSIS ONLY) IV ONE (10:00)
[2016-07-03 10:24] LABS: HEPATITIS B SURFACE ANTIBODY NEGATIVE (POSITIVE)
--- NOTE | 2016-07-03 11:27 | IPNPDOC ---
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 Patient proceeding with the evaluation in PT and OT. He appears that he could benefit from reduction and tone so will try to get Botox injections for the shoulder and hip on the right along with tone-reducing techniques in therapy. Patient restarted on his Ritalin which she is happy about and hopefully this will help with some of the short-term memory deficits found on the speech evaluation. Overall patient notes good pain control with no fever chills or other problems. ALLERGIES: See Below MEDICATIONS: Reviewed, see below. OBJECTIVE: VITAL SIGNS: Please see below. PHYSICAL EXAMINATION: GENERAL: Average height and build middle-age white male with some lack of musculature in the distal upper and lower extremities more on the left than the right but more tone on the right especially shoulder and hip. Patient is alert and oriented 4. He is somewhat anxious but in general pleasant and cooperative though he does have frequent Tourette syndrome injections of speech as well as some movement when you're talking to him. This is exacerbated by his level of stress at the time. HEENT: Normocephalic head still turn to the left and slightly angled upward with right tongue deviation. CARDIOVASCULAR: Regular rate and rhythm with normal S1 and S2 in 2 out of 4 radial pulses bilaterally. LUNGS: All lin clear to auscultation. ABDOMEN: Slightly obese, nontender with normal bowel sounds in all quadrants. NEUROLOGICAL: As noted above. SKIN: Continued improvement in right lopes from the Pyroderma Gangrenosa with abscess. LABORATORY DATA: Reviewed. Please see below. MICROBIOLOGY: Please see below. IMAGING: No new DVT prophylaxis ordered?: Enteric-coated aspirin 81 mg daily ASSESSMENT AND PLAN: 1. Rehabilitation of vasculitis caused infection and general debilitation: Patient to have more energy and is found sitting up in his room today in no acute distress. He is anxious about his pain management and tapering of his methadone. So I have tried to reassure him as to being a slow wean without physical withdrawal problems. 2. Acute kidney injury on chronic kidney disease: Patient to have dialysis today and will be proceeding twice weekly until renal function improves. 3. Group a strep infection: Patient continuing on IV clindamycin and doing well with it with improving leg sides and no fevers or chills. TIME SPENT: Chart Review, examination and documentation greater than 25 minutes. Allergies Coded Allergies: Sulfamethoxazole w/Trimethoprim (Verified Allergy, Unknown, 07/01/16) Vital Signs Vital Signs Date Time Temp Pulse Resp B/P Pulse Ox O2 Delivery O2 Flow Rate FiO2 07/03/16 08:11 100 123/78 07/03/16 08:10 20 07/03/16 05:20 97.2 96 Room Air Laboratory Data CBC/BMP Laboratory Tests 07/03/16 06:30 Calcium Level 9.5, Red Blood Count 3.26 L, Mean Corpuscular Volume 85.9, Mean Corpuscular Hemoglobin 26.7 L, Mean Corpuscular Hemoglobin Concent 31.0 L, Red Cell Distribution Width 16.1 H Labs 24H Laboratory Tests 2 07/02/16 11:42: Bedside Glucose (Misc Panel) 139H 07/02/16 17:22: Bedside Glucose (Misc Panel) 159H 07/02/16 20:16: Bedside Glucose (Misc Panel) 173H 07/03/16 05:32: Bedside Glucose (Misc Panel) 132H 07/03/16 06:30: Anion Gap 11, Blood Urea Nitrogen 60H, Creatinine 4.58H, Sodium Level 134L, Potassium Level 4.3, Chloride Level 96L, Carbon Dioxide Level 27, Calcium Level 9.5, Glomerular Filtration Rate 14.0L Microbiology Microbiology 07/01/16 Urine Culture - Final, Complete Current Medications Current Medications Current Medications Acetaminophen (Tylenol Tab) 650 mg Q6HP PRN PO PAIN; Start 07/01/16 at 11:30; Stop 07/31/16 at 11:29 Aspirin (Ecotrin) 81 mg DAILY PO Last administered on 07/03/16 08:10; Start at 09:00; Stop 08/01/16 at 08:59 Calcium Carbonate (Tums) 1,000 mg Q4HP PRN PO HEARTBURN; Start 07/01/16 at 11: 30; Stop 07/31/16 at 11:29 Clindamycin Phosphate/IV Miscellaneous Supplies (Cleocin) 50 ml @ 50 mls/hr Q8H IV Last administered on 07/03/16 05:42; Start 07/01/16 at 14:00; Stop at 13:59 Darbepoetin Pablo (Aranesp (Dialysis Use)) 200 mcg HD IV ; Start 07/03/16 at 08: 00; Stop 08/02/16 at 07:59 Dextrose (Dextrose 50%) 25 ml ASDIRECTED PRN IV SEE LABEL COMMENTS; Start 07/01 at 13:45; Stop 07/31/16 at 13:44 Docusate Sodium (Colace) 100 mg Q12HP PRN PO CONSTIPATION; Start 07/01/16 at 11 :30; Stop 07/31/16 at 11:29 Glucagon (Glucagon) 1 mg ASDIRECTED PRN SC SEE LABEL COMMENTS; Start 07/01/16 at 13:45; Stop 07/31/16 at 13:44 Glucose (Glucose) 16 GM ASDIRECTED PRN PO SEE LABEL COMMENTS; Start 07/01/16 at 13:45; Stop 07/31/16 at 13:44 Home Med (Med Rec Complete!) ASDIRECTED XX ; Start 07/01/16 at 14:15; Stop 03/07 at 14:22; Status DC Hydromorphone HCl (Dilaudid) 2 mg Q4HP PRN PO MODERATE/SEVERE PAIN (PS 5-10); Start 07/01/16 at 12:15; Stop 07/08/16 at 09:00 Insulin Human Lispro (HumaLOG INSULIN) SEE PROTOCOL TABLE AC SC Last administered on 07/03/16 08:10; Start 07/01/16 at 17:30; Stop 07/31/16 at 17:29 Iron (Venofer) 100 mg HD IV ; Start 07/02/16 at 09:45; Stop 07/06/16 at 09:46 Lactobacillus Acidophilus (Bacid) 1 ea BID PO Last administered on 07/03/16 08 :10; Start 07/01/16 at 21:00; Stop 07/31/16 at 20:59 Methadone HCl (Dolophine) 40 mg TID PO Last administered on 07/03/16 08:10; Start 07/01/16 at 16:00; Stop 07/03/16 at 10:00; Status DC Methylphenidate HCl (Ritalin) 20 mg BID@08,12 PO Last administered on 08:11; Start 07/03/16 at 08:00; Stop 07/10/16 at 07:59 Metoprolol Tartrate (Lopressor) 50 mg BID PO Last administered on 07/03/16 08: 11; Start 07/01/16 at 21:00; Stop 07/31/16 at 20:59 Mineral Oil/White Petrolatum (Eucerin) TO DRY AREAS ON RT L... BID PRN TOP Dry skin; Start 07/01/16 at 11:30; Stop 07/31/16 at 11:29 Miscellaneous (Unresolved Non-Formulary Med Order) SEE LABEL COMMENTS UNRESOLVED XX ; Start 07/01/16 at 00:01; Stop 07/02/16 at 19:02; Status DC Non-Formulary Medication Liquacel Ligquid Prot... DAILY PO ; Start 07/02/16 at 09:00; Stop 07/02/16 at 09:51; Status DC Non-Formulary Medication Procrit 10,000 Unitis... 2XW IV ; Start 07/01/16 at 12: 15; Stop 07/02/16 at 09:50; Status DC Nystatin (Mycostatin Powder, Nystop) BIDP PRN TOP RASH; Start 07/01/16 at 11: 30; Stop 07/31/16 at 11:29 Pantoprazole Sodium (Protonix) 40 mg DAILY PO Last administered on 07/03/16 08 :11; Start 07/02/16 at 09:00; Stop 08/01/16 at 08:59 Risperidone (RisperDAL) 2 mg DAILY PO Last administered on 07/03/16 08:10; Start 07/02/16 at 09:00; Stop 08/01/16 at 08:59 Senna (Senokot) 2 tab QHSP PRN PO CONSTIPATION; Start 07/01/16 at 11:30; Stop 07/31/16 at 11:29 Sevelamer Carbonate (Renvela) 800 mg WM PO Last administered on 07/03/16 08:10 ; Start 07/01/16 at 12:30; Stop 07/31/16 at 12:29 Triamcinolone Acetonide (Kenalog 0.1% Cream) prn fungal rash for 7 Days BID PRN TOP RASH Last administered on 07/02/16 08:31; Start 07/01/16 at 11:30; Stop 07/08/16 at 11:29 CHRIS DUMONT MD Jul 03, 2016 11:26
--- NOTE | 2016-07-03 12:18 | IPNPDOC ---
Subjective Date Seen The patient was seen on 07/03/16. Subjective Chief Complaint/HPI The patient is a 61-year-old male admitted with a reason for visit of Severe Sepsis. Events since last encounter Pt with no complaints. States pain is controlled at this time. Constitutional: Denies: Chills, Fever ENT: Denies: Dysphagia, Ear Pain, Head Aches Pulmonary: Denies: Cough, Dyspnea Cardiovascular: Denies: Chest Pain, Lt Headedness, Orthopnea, Palpitations, Paroxysmal Noc. Dyspnea Gastrointestinal: Denies: Abdominal Pain, Constipation, Diarrhea, Nausea, Vomiting Genitourinary: Denies: Dysuria, Frequency, Incontinence, Retention Objective Physical Examination General Exam: Positive: Alert Eye Exam: Positive: PERRLA ENT Exam: Positive: Atraumatic, Mucous membr. moist/pink, Pharynx Normal Chest Exam: Positive: Clear to auscultation, Normal air movement Heart Exam: Positive: Normal S1, Normal S2, Rate Normal, Regular Rhythm, Negative: Murmurs, Rubs Extremity Exam: Negative: Edema, Swelling, Tenderness Skin Exam: Positive: Other skin issue (chronic skin changes LEs) Assessment /Plan Problems (1) Cellulitis of right leg Status: Chronic Problem Text: * GAS Bacteremia * IV Clinda as per D/C recommendations x 14 days * Afebrile * No leukocytosis (2) MARCEL (obstructive sleep apnea) Status: Chronic Problem Text: * BIPAP machine pending from home * Pt states it was not functioning appropriately/fitting appropriately * Pulmonary is consulted for further fitting and management. (3) Immunocompromised Status: Chronic Problem Text: * Outpatient medications are on hold. * Patient follows with a kier hand in [place]. (4) ESRD (end stage renal disease) Status: Chronic Problem Text: * Hemodialysis as per nephrology (5) Chronic pain Status: Chronic Problem Text: * Pain management as per attending * Methadone as per attending. * Monitor for lethargy and respiratory status. (6) Anemia in CKD (chronic kidney disease) Status: Chronic Problem Text: * Aranesp as per nephrology * Iron supplement * monitor (7) CHF (congestive heart failure) Status: Chronic Problem Text: * No signs of decompensation at this time. * Nephrology. 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 Problem Text: * CC diet * Sliding scale insulin Plan/VTE VTE Prophylaxis Ordered?: No (as per attending) Disposition as per ARU VS, I&O, 24H, Fishbone Vital Signs/I&O Vital Signs Date Time Temp Pulse Resp B/P Pulse Ox O2 Delivery O2 Flow Rate FiO2 07/03/16 08:11 100 123/78 07/03/16 08:10 20 07/03/16 05:20 97.2 96 Room Air I&O- Last 24 Hours up to 6 AM 07/03/16 06:00 Intake Total 1920 ml Output Total 2275 ml Balance -355 ml Laboratory Data 24H LABS Laboratory Tests 2 07/02/16 17:22: Bedside Glucose (Misc Panel) 159H 07/02/16 20:16: Bedside Glucose (Misc Panel) 173H 07/03/16 05:32: Bedside Glucose (Misc Panel) 132H 07/03/16 06:30: Anion Gap 11, Blood Urea Nitrogen 60H, Creatinine 4.58H, Sodium Level 134L, Potassium Level 4.3, Chloride Level 96L, Carbon Dioxide Level 27, Calcium Level 9.5, Glomerular Filtration Rate 14.0L CBC/BMP Laboratory Tests 07/03/16 06:30 Calcium Level 9.5, Red Blood Count 3.26 L, Mean Corpuscular Volume 85.9, Mean Corpuscular Hemoglobin 26.7 L, Mean Corpuscular Hemoglobin Concent 31.0 L, Red Cell Distribution Width 16.1 H Microbiology Microbiology 07/01/16 Urine Culture - Final, Complete Kaylen Smith Jul 03, 2016 12:18
[2016-07-03 16:08] VITALS: BP 133/73
--- NOTE | 2016-07-03 18:02 | IPN ---
DATE: 07/03/2016 SUBJECTIVE: The patient was seen and examined at the bedside today in the morning during work rounds and again during hemodialysis procedure. The patient is tolerating hemodialysis procedure well. His GFR still continues to be 14 and he still is dialysis dependent. However, he is getting it twice a week. REVIEW OF SYSTEMS: The patient denies any fever, chills, rigors, headache, nausea, vomiting, chest pain, shortness of breath, pain in abdomen, constipation or diarrhea. He still reports weakness of the leg and inability to walk. OBJECTIVE: VITAL SIGNS: Temperature is 97.2 degrees Fahrenheit. Blood pressure is 123/78, pulse is 100. Respiratory rate of 18, saturating 96% on room air. Intake and output: Urine output recorded is 2.2 liters yesterday. There is no urine output recorded today. Weight on the bed scale is 74.1 kg. PHYSICAL EXAMINATION: GENERAL: The patient is awake, alert and oriented times three. Sitting in the bed. No apparent distress. The patient is cooperative, but he has intermittent focal tics. HEAD/NECK: Extraocular muscles intact. Pupils equally round and reactive to light. Mucous membranes are moist. Neck is supple. There is no jugular venous distention (JVD). CARDIOVASCULAR: S1, S2, irregular rate. No murmur, rub or gallop. RESPIRATORY: Chest is clear to auscultation bilaterally. Bilateral equal air entry. No rales or rhonchi. ABDOMEN: Soft. Positive bowel sounds. Nontender. No ascites or organomegaly. EXTREMITIES: Patient has right leg cellulitis which is healing. He has a dressing on the right leg. Pulses are otherwise 2+. He is unable to move right leg because of pain and he also has limited range of movement of right shoulder as well. CENTRAL NERVOUS SYSTEM: The patient is awake, alert, oriented times three, but he has intermittent vocal tics secondary to Tourette's syndrome. Power is 5/5 in the left upper extremity. He is unable to move right leg and right shoulder because of pain. PSYCHIATRIC: The patient has normal mood and affect otherwise. LABORATORY REVIEW: CBC showed a WBC 5, hemoglobin is 8.7, platelets are 270. BMP showed sodium 134, potassium 4.3, chloride 96, bicarbonate 27, BUN is 60. Creatinine is 4.5. GFR is 14, calcium is 9.5. CURRENT MEDICATIONS: The patient's medications were all reviewed by me. His methadone dose has been decreased to 40 mg by mouth twice a day and there is no other change in the medications today as compared with yesterday. ASSESSMENT: 61-year-old male with recent history of acute kidney injury resulting in end-stage renal disease requiring hemodialysis. He was transferred from outside hospital to the acute rehabilitation unit. Nephrology service following the patient for management of end-stage renal disease. PLAN: 1. End-stage renal disease secondary to sepsis. The patient is currently hemodialysis dependent, however, he is getting only twice a week hemodialysis. Today is patient's regular hemodialysis day. He is getting the hemodialysis done. He is tolerating it well. We shall only do a UF of only one liter because patient has good urine output. GFR is still 14, so patient needs to continue dialysis at this time. Continue to monitor for renal recovery. 2. Anemia secondary to end-stage renal disease. The patient's iron levels are also low. He would get Venofer 100 mg IV with each hemodialysis session. Continue Aranesp as well. 3. Right lower extremity cellulitis and recent group B Streptococcus bacteremia. Continue clindamycin at this time. Right leg cellulitis is healing. 4. Severe debilitation, inability to walk. The patient is being seen by physical medicine and rehabilitation physician and getting physical therapy. They are planning to wean off his methadone. The rest of the management is as per physical therapy. 5. Hypertension and cardiomyopathy. Continue current dose of metoprolol 50 mg by mouth twice a day. Blood pressure is acceptable at this time.
[2016-07-03 22:00] VITALS: BP 104/56
--- NOTE | 2016-07-03 22:46 | CR ---
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 Henning to arrange Botox injections. 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 He was initially admitted to [facility] in [place], [place] on approximately 05/17/2016, presenting with altered mentation. Dr. 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 He was taking Tylenol for the fever and was otherwise reportedly acting and eating normally until the night prior to admission. He was too weak to get up from the dinner table and slept with his head down on the table that night. His is with him and in the morning she could not arouse him. He was found to be lethargic with respiratory distress so she called emergency medical services (EMS) and he was brought to the emergency room. Severe sepsis was diagnosed and he was started on bilevel positive airway pressure (BIPAP) for severe hypoxemia, volume resuscitation was given, and he had treatment with antibiotics. He was thought to have severe sepsis with group A streptococcus bacteremia and severe right lower extremity cellulitis with background of preexisting pyoderma gangrenosum and he was admitted to the intensive care unit (ICU) due to sepsis secondary to cellulitis of the right leg complicating chronic ulcerations and chronic immunocompromised state. He was on chronic immunosuppressants, mainly Remicade, methotrexate and a brief course of prednisone. He had septic shock with multi organ dysfunction with renal failure, transaminasemia and elevated troponin, but he did not require pressors and his vital signs improved with hydration. Blood cultures were positive for group A streptococcus. He was initially empirically treated with vancomycin and Zosyn. He was evaluated by surgery, as well as necrotizing fasciitis given acute illness on presentation. He had bedside x-rays of the muscles by surgery, along with MRI of the right lower extremity that showed no evidence of necrotizing fasciitis; however, his right leg continued to remain significantly erythematous and swollen despite one week of broad spectrum antibiotics, therefore he was placed on clindamycin and ceftazidime, which he received for approximately 10 days. As his leg erythema improved with this regimen, he was transitioned to oral antibiotics. However, on oral antibiotics, his fever recurred with worsening of the appearance of the lower extremity. Therefore, he was placed back on broad spectrum antibiotics, including vancomycin and ceftazidime and clindamycin with minimal improvement. Therefore, infectious disease consultation was requested. The repeat blood cultures were negative. Fever resolved on clindamycin, ceftazidime, day 9 and 14. Leg clinically improved. Renal was following for the sepsis related renal failure on a Wednesday, Wednesday and Wednesday dialysis. Physical therapy (PT) and occupational therapy (OT) were on board. He received a Perm-A-Cath after finishing up his course of antibiotics. He did have anemia of chronic kidney disease and received 2 units of packed red blood cells on 05/29/2016 and was on Epogen. He had chronic right shoulder pain with chronic opioid use and had significant lethargy on home dose of methadone total of 140 mg daily dose and was thought to have metabolic encephalopathy due to the opioids. He was started on high dose [id number] Tylenol to supplement the effect, and he was tapered off his methadone, but the taper was complicated by some withdrawal symptoms. Orthopedics was consulted and the right shoulder and case was discussed with Dr. Barboza. X-ray of the shoulder was negative for acute findings. He has hyperphosphatemia and was on phosphate binders, calcium carbonate and with renal following and getting hemodialysis. He got deep vein thrombosis (DVT) prophylaxis with subcutaneous heparin. Platelet counts were stable. He had acute systolic congestive heart failure (CHF). Echocardiogram demonstrated left ventricular ejection fraction of 30%, down from a baseline with global hypokinesis seen, likely resultant from the sepsis without any signs or symptoms of decompensated congestive heart failure (CHF) with the plan to repeat echocardiogram after completion of antibiotics. He had demand ischemia that was acute. Elevated troponin was thought likely due to sepsis rather than regional ischemia. Metabolic encephalopathy was thought, at least in part, due to methadone with no metabolic abnormality otherwise to explain his somnolence. ABG showing no acidosis. The case was discussed with nephrology, who agreed with methadone being the likely cause of encephalopathy, improved mental status after reducing the methadone, continued bilevel positive airway pressure (BIPAP) at night for obstructive sleep apnea. He has a long history of shoulder pain. He estimates that the duration of the shoulder pain is "probably 15 years." He wonders if it has anything to do with his Tourette's syndrome because "for years I used to throw my arm out... not anymore... my Tourette's has gotten better over the years...usually I do not have symptoms in my shoulder anymore." The onset of his shoulder pain was gradual but then got worse with this most recent hospitalization, "very bad after I went into septic shock." He believes that when he had encephalopathy that he probably had passive movements that exacerbated his shoulder pain. The exacerbating factors, according to the occupational therapist, whom I spoke to today that is treating him here, are abduction and forward flexion and she reports that he only has about 10 degrees of each. He reports that the pain is "when I move it." Whether it occurs at rest, he admits "maybe occasionally, sometimes I cannot find a comfortable position." The alleviating he replies, "just relaxing with intensity of 0." Diagnostic tests include, "I had x-rays... severe osteoarthritis." He does not believe that he has had MRI of his right shoulder ever. Therapeutic interventions include, "I saw an orthopedist. He told me that physical therapy would be a waste of time." Also, because there is a question of dystonia or hypertonicity, we inquired about any brain imaging. He believes that he had a MRI of the brain a few years ago, although that report is not available at this time. He reports the pain intensity in the right shoulder currently is 0. As far as the right hip, he does not want to have that evaluated. He reports that he has had two hip replacements that "failed," including hip replacements done in an academic center, [facility]. As far as the hip, "not right now, I want to try the shoulder first and if that works then we can consider." He reports, "I think we should emphasize the shoulder." Later on, we did mention that one other treatment option could be intrarticular shoulder injection and then he reports that he actually has had about four intraarticular shoulder injections with corticosteroids done with fluoroscopic guidance at [facility]. He reports that the first two helped but the second two did not. PAST MEDICAL HISTORY/REVIEW OF SYSTEMS: He has declined HIV testing and hepatitis C testing. He denies alcohol abuse or smoking, never smoked. He is on a renal diet, consistent carbohydrate on admission. His primary care is Dr. Lowell Brantley. He also reports that he has had a cervical discectomy "four discs," Tourette's, history of sinus tachycardia, obstructive sleep apnea, gastric reflux, weight loss and appetite changes. The chart lists a history of peripheral vascular disease. Congestive heart failure, acute renal failure on dialysis, chronic kidney disease. Denies reproductive disorders. The chart lists a history of diabetes, osteoarthritis, muscle pain, muscle weakness, skin problems, sarcoidosis, anemia of kidney disease, immunosuppressants, history of methicillin resistant Staphylococcus aureus (MRSA) colonization via nasal swab at [facility] in 2007. Denies psychiatric problems. Hepatitis A immunization, hepatitis B immunization. Has a history of polio immunization. Denies a history of vancomycin-resistant Enterococcus (VRE) or VRSA. He has a history of MMR vaccination. He lives with his spouse. He reportedly also has, as mentioned, cellulitis, cervical disc disease, chronic opioid use, diabetes mellitus, gastroesophageal reflux disease (GERD), immunosuppressant use, monoclonal gammopathy of unknown significance. He had a pyoderma gangrenosum, right total hip arthroplasty times two, sarcoidosis, severe sepsis, Tourette's syndrome, chronic right hip and shoulder pain, generalized weakness, history of rash, positive diplopia but denies blurring or visual loss, history of dyspnea on exertion without chest pain, history of polydipsia. ALLERGIES: He is allergic to BACTRIM. No known drug allergies otherwise. MEDICATIONS: At this time: - methadone 40 mg by mouth in the morning and at night, 35 mg in the afternoon - Aranesp 200 mcg IV with hemodialysis - Ritalin 20 mg by mouth twice a day at 0800 hours and 12:00 p.m. - Venofer 100 mg IV with hemodialysis - Protonix 40 mg by mouth daily - Risperdal 2 mg by mouth daily - aspirin 81 mg by mouth daily - metoprolol 50 mg by mouth twice a day - Bacid one each by mouth twice a day - Humalog insulin before meals per protocol - clindamycin 900 mg IV every 8 hours - D50 glucose and Glucagon as needed per protocol - Renvela 800 mg with meals - Dilaudid 2 mg by mouth every 4 hours as needed but has not used since being here - Tylenol 650 mg by mouth every 6 hours as needed - Tums 1000 mg by mouth every 4 hours as needed - Colace 100 mg by mouth every 12 hours as needed - Senna two by mouth at night as needed - nystatin twice a day as needed - Kenalog as needed for fungal rash for 7 days - Eucerin to dry areas on right leg as needed SOCIAL HISTORY: No tobacco use. No significant alcohol use. No recreational drug use. 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 He is . He uses a scooter for mobility. helps him with transfers. 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 He did his residency in psychiatry and fellowship at [facility]. 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 His brother is Dr. Mukund Neves, a professor Emeritus and former skilled nursing data migration lead of the Department of Physical Medicine and Rehabilitation at [facility] where he also, because of his interest in swallowing, had an appointment with the otolaryngology department. Dr. Geovany Neves resides in [place] and lives with his and a Medical Orders for Life Sustaining Treatment (MOLST) form is FULL CODE. FAMILY HISTORY: Brother has coronary artery disease and Crohn's. Children alive and well. He says that there is a family history of cancer, coronary artery disease and Crohn's disease. Brother has cervical spine disease and coronary artery bypass graft (CABG). Brother with Crohn's disease. PHYSICAL EXAMINATION: GENERAL: Fairly well developed, somewhat cachectic, well groomed, pleasant gentleman in no acute distress with some tics associated with his Tourette's, including some retrocollis, which he thinks contributed to his cervical disc disease and some vocal tics, including expletives. VITAL SIGNS: Temperature 97.2, temporal. Pulse 100, respirations 20, blood pressure 123/78, pulse oximetry 96% on room air. CARDIOVASCULAR: Inspection of peripheral vascular system includes the venous stasis changes in the lower extremities. Includes significant pitting edema in the lower extremities. Otherwise, cardiovascular is deferred to internal medicine/hospitalist. MUSCULOSKELETAL: Gait and station not assessed because he is on dialysis right now. I asked to speak to the physical therapist but she has gone home for the day, as has the geophysical computer. The inspection of the cervical spine and bilateral upper extremities includes cervical surgery scar. He has some bilateral ulnar intrinsic wasting. Inspection of the lumbar spine and bilateral lower extremities: He has known hip surgery. He is keeping his right hip externally rotated. The range of motion of the bilateral upper extremities: He has only a small amount of active abduction at the shoulder and passively he can go to about 30 degrees and then the pain starts to kick in, but he reports that it is deep in the shoulder, although he does have some either contracture or tone picking up in the shoulder adductors, mainly the lateral pectoralis. He has a little bit better passive forward flexion movement of the shoulder, but then before he reaches 90-degrees the deep shoulder pain kicks in, although at that point there is still no palpable tone in the shoulder extensors. The bilateral elbow flexion and elbow extension is not bad. Bilateral wrist extension range is not bad. Bilateral finger flexor range is not bad. Bilateral finger abductor range is not bad, but he has significant flexor contractures in some digits of bilateral hands. Range of motion of the lower extremities is decent. Bilateral ankle plantar flexors minimal. Ankle plantar flexor contractures bilaterally. He reports that he believes that he does have a left foot drop. He reports that his brother, Dr. Mukund Neves, had noted it incidentally one day. The assessment of the cervical spine includes no gross step off appreciated to suggest gross listhesis. Assessment of stability of bilateral extremities and lower extremities, includes no gross luxation. The manual muscle testing of selected muscles bilaterally representing each of C5-T1 and L2-S1 myotomes examined with right elbow flexion and elbow extension is probably 4/5, at least with central range of motion. On the right side distally he is probably 5/5 with wrist extension, scanning tech and ulnar intrinsic. On the left side, he is fairly strong with elbow flexion, but he is actually weak with left elbow extension, probably 4/5. His wrist extension is fairly strong. His scanning tech is not bad, but he has weakness of his left ulna intrinsic but 4/5 in strength. In the lower extremities, he is weak throughout his left lower extremity. He is 4/5 throughout. In the right lower extremity, he is only 1/5 with hip flexion, but that could be secondary to pain, at least 4/5 with knee extension and really not bad with right ankle dorsiflexion but no normal side to compare to and then weak with great toe dorsiflexion at least 4/5 in all tested muscles. NEUROLOGIC/PSYCHIATRIC: Mood and affect euthymic. He is alert and oriented times three. Cranial nerves include visual lin full with confrontation. Extraocular movements appear intact despite his reported history of diplopia. V1/V3 sensation grossly intact to fine touch bilaterally. Some masseter function bilaterally. He has a little bit of facial asymmetry and relatively decreased left nasolabial fold but it is not too dramatic. He can hear rubbing fingers bilaterally, maybe he thinks that he hears a little bit on the right than the left. The uvula is difficult to see because he is Mallampati 4. The tongue deviates just slightly to the right. Shoulder shrug is fairly strong bilaterally. The coordination includes finger to nose intact on the left side and on the right side he cannot really do it because of shoulder range of motion. Finger to finger intact bilaterally. Rapid alternating motions are okay bilaterally without any obvious dysdiadochokinesia. We deferred heel to lopes because he has a history of hip replacements and then tandem gait and Romberg are not accessible at this time. The muscle strength and reflexes are about 1 to 2+ at the right biceps, 1+ left biceps, 1 to 2+ bilateral brachioradialis, 1+ right triceps, 1 to 2+ left triceps, 0 right knee and ankle despite Jendrassik maneuvers. 2+ left knee and at least 1+ left ankle. The sensation in selected areas of bilateral C5-T1 dermatomes are symmetric to gross fine touch. LABORATORY FINDINGS: Today, WBC 5.0 with a hemoglobin and hematocrit 8.7 and 28.0 MCV 85.9, MCH 26.7, MCHC 31.0, RDW 16.1, platelet count 270. His automated differential from yesterday is also noted. His chemistries from today: Sodium 134, potassium 4.3, chloride 96, bicarbonate 27, anion gap 11, BUN 60, creatinine 4.58, GFR estimated at 14, glucose 136, calcium 9.5. The rest of his complete profile yesterday is also noted, including his alkaline phosphatase at 336. His urinalysis from 07/01/2016 is also noted. His hepatitis B testing for antigen and antibody were negative yesterday. His hepatitis C was 0.1, within normal limits. His shoulder x-ray dated 07/01/2016 report is reviewed, including that he has moderate degenerative changes. His EKG from yesterday is noted, essentially normal sinus rhythm, per cardiology. Also, various imaging studies that we have available are reviewed from the reports from [facility], including a right lower extremity duplex venous ultrasound dated 06/17/2016, MRI of the right foot on 06/12/2016 showing no evidence of osteomyelitis. MRI of the right ankle showing no evidence of osteomyelitis on 06/12/2016. The chest x-ray on 06/04/2016, MRI of the lower extremities on 05/19/2016, as well as chest x-ray on 05/17/2016, shoulder x-ray from 05/24/2016, CT of the brain from 05/21/2016, chest x-ray from 05/20/2016, and earlier chest x-ray on same date of 05/20/2016, renal ultrasound 05/19/2016, and duplex venous ultrasound on 05/19/2016. IMPRESSION: 1. Right shoulder pain and osteoarthritis. We discussed whether he wanted to proceed with further diagnostic and treatment options. In terms of the diagnostic options, he is supposed to see orthopedics as an outpatient, so we will defer to them, but I would recommend, given the duration of conservative care, including physical therapy, that a MRI would be warranted as an outpatient. Therapeutically, a lot of his range today, passively, when I examine him was actually limited by the shoulder pain itself, and he reports feeling it deep within the shoulder, so he thinks that it is probably attributable to the osteoarthritis that he has and not the contracture vs. dystonia/hypertonicity. For instance, when I flex the shoulder, he did not develop any tone in the shoulder extensors yet, but did report deep shoulder pain and did not want me to go any further. With adduction, though we did get some significant tone or contracture in the shoulder adductors kicking in at the lateral pectorals, so that raises the possibility that there is an element of dystonia there, but it could very well just be too late and at this point it might be contracture, but we will discuss that further below. At any rate, he declines diagnostic and therapeutic intraarticular image guided injection at the right shoulder at this time. He figures he has already done that before. 2. Tourette's syndrome. We are deferring workup and treatment to his other treating physicians but the Tourette's tic movements, including the motor tics could potentially be contributing to his shoulder issues, but we are deferring it otherwise to his other treating physicians. 3. Right shoulder dystonia. The patient feels that is tics are only clonic tics and not dystonic tics. I offered to speak to his brother, Dr. Mukund Neves, but Dr. Geovany Neves would prefer just for me to speak to Dr. Henning. I spoke to Dr. Henning and Dr. Henning was able to actually elicit increased tone in the shoulder, and he found a way to actually improve the passive range of motion of the shoulders by tone reduction maneuvers and therefore thinks that Botox could help. I explained to the patient that the Botox latency for kicking in is probably at the minimum 5 to 7 days and a maximum effect is later, so he will not know whether or not the injections helped at all until quite some time later. I spoke to Dr. Henning, as well as the occupational therapist and they do feel that it is possible that the Botox could kick in before Dr. 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 Therefore, Dr. Henning and the patient want to at least do some degree of Botox, but the patient wants to limit it to the minimum, so we would probably start with an area of the shoulder adductors. I advised him that this is going to take a while for the Botox to kick in and if he is going to do it he probably should do it sooner rather than later so that hopefully it will start to kick in, and he can actually derive some benefit while in acute rehabilitation, but he reports that he has to get himself mentally prepared for it so does want to delay the injections until Wednesday. We executed the informed consent today. I discussed the case with Dr. Henning. 4. Other medical issues and rehabilitation issues are deferred to his other treating physicians. Thank you very much for allowing me to participate in this consultation. Face to face time was 110 minutes. PITA
[2016-07-04] MEDS: CLINDAMYCIN 900 MG in APPROPRIATE DILUENT 1 EA IV SCH ×3 (05:25→21:20)
[2016-07-04 06:00] VITALS: BP 104/56
[2016-07-04 06:53] LABS: MEAN CORPUSCULAR HEMOGLOBIN 26.5 pg (27.0-33.0); MEAN CORPUSCULAR HGB CONC 30.5 g/dl (32.0-36.5); MEAN CORPUSCULAR VOLUME 86.9 fl (80.0-96.0); RED CELL DISTRIBUTION WIDTH 16.6 % (11.5-14.5)
[2016-07-04 07:06] LABS: CALCIUM LEVEL 8.9 MG/DL (8.8-10.2); CREATININE FOR GFR 3.37 MG/DL (0.70-1.30); POTASSIUM SERUM 4.2 MEQ/L (3.5-5.1)
[2016-07-04] MEDS: HumaLOG INSULIN (NovoLOG) PER UNIT SC SCH ×3 (08:30→17:29)
[2016-07-04] MEDS: LACTOBACILLUS ACIDOPHILUS CAP (BACID) PO SCH ×2 (08:31→21:19)
[2016-07-04] MEDS: METHADONE 10 MG TAB (S0109) PO SCH ×3 (08:31→21:20)
[2016-07-04] MEDS: ASPIRIN 81 MG ENTERIC TAB PO SCH (08:31)
[2016-07-04] MEDS: METOPROLOL TART 50 MG TAB PO SCH ×2 (08:32→21:20)
[2016-07-04] MEDS: (RENVELA) SEVELAMER **CARBONate** 800 MG TAB PO SCH ×3 (08:32→17:28)
[2016-07-04] MEDS: PANTOPRAZOLE 40MG TAB (PROTONIX) PO SCH (08:32)
[2016-07-04] MEDS: risperiDONE 2 MG TAB PO SCH (08:32)
[2016-07-04] MEDS: METHYLPHENIDATE 5 MG TAB PO SCH ×2 (08:32→11:59)
[2016-07-04 14:05] VITALS: BP 128/56
--- NOTE | 2016-07-04 20:47 | IPN ---
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 He is being followed by nephrology due to acute renal failure requiring hemodialysis. His last dialysis was performed yesterday. This morning his condition is as usual and he denies any dyspnea or chest pain. He feels very weak and reports feeling dizzy after dialysis yesterday. He denies any nausea or vomiting and reports a very poor appetite. He is just living on Nepro but not eating much solid food. He also has developed iron deficiency with anemia and has been receiving intravenous iron and Aranesp during dialysis. PHYSICAL EXAMINATION: GENERAL: Pale looking but not in any acute distress gentleman lying in the bed. VITAL SIGNS: Temperature is 98.8 degrees Fahrenheit, heart rate 96 per minute and respiratory rate 18 per minute. Blood pressure 104/56 mmHg and oxygen saturation 100% on room air. HEENT: His head is atraumatic. Ears, nose and throat are unremarkable. Pupils equal and reactive to light and sclerae are anicteric. NECK: Supple and without jugular venous distention (JVD) or thyroid enlargement. A Perma-Cath is present in the right internal jugular vein. CARDIORESPIRATORY : Heart sounds are regular and lungs clear to auscultation. ABDOMEN: Soft and nontender and without palpable organomegaly. EXTREMITIES: Have no cyanosis or clubbing. LABORATORY DATA: Today's labs show WBC count 5.0, hemoglobin 8.6 and hematocrit 28.3. Platelets 249. Sodium 136, potassium 4.2. BUN 37 and creatinine 3.37. Glucose 148 and calcium 8.9. PROBLEMS: 1. Acute renal failure. The patient has no significant recovery of kidney function so far. He has been dialysis dependent and was dialyzed yesterday. We will plan to dialyze him again next week. 2. Hyponatremia. Sodium level has now corrected to normal range. No intervention is indicated. 3. Anemia. He does have anemia of renal failure in the setting of iron deficiency. He is currently receiving Venofer 100 mg every hemodialysis and Aranesp 200 mcg once a week which will be continued. 4. Hypotension. Most likely this is related to hypovolemia. We will try not to remove any fluid with the next hemodialysis treatment. 5. Generalized weakness and deconditioning. The patient continues with rehabilitation. [facility]
[2016-07-04 20:49] VITALS: BP 140/70
[2016-07-05] MEDS: CLINDAMYCIN 900 MG in APPROPRIATE DILUENT 1 EA IV SCH ×3 (06:24→21:44)
[2016-07-05 06:35] VITALS: BP 120/58
[2016-07-05 07:23] LABS: MEAN CORPUSCULAR HEMOGLOBIN 26.3 pg (27.0-33.0); MEAN CORPUSCULAR HGB CONC 30.8 g/dl (32.0-36.5); MEAN CORPUSCULAR VOLUME 85.4 fl (80.0-96.0); RED CELL DISTRIBUTION WIDTH 16.4 % (11.5-14.5); WHITE BLOOD COUNT 4.9 K/mm3 (4.0-10.0)
[2016-07-05 07:38] LABS: CALCIUM LEVEL 9.5 MG/DL (8.8-10.2); CREATININE FOR GFR 4.04 MG/DL (0.70-1.30); GLOMERULAR FILTRATION RATE 16.2 (>49); POTASSIUM SERUM 4.2 MEQ/L (3.5-5.1)
[2016-07-05] MEDS: PANTOPRAZOLE 40MG TAB (PROTONIX) PO SCH (08:43)
[2016-07-05] MEDS: HumaLOG INSULIN (NovoLOG) PER UNIT SC SCH ×3 (08:43→17:30)
[2016-07-05] MEDS: ASPIRIN 81 MG ENTERIC TAB PO SCH (08:44)
[2016-07-05] MEDS: (RENVELA) SEVELAMER **CARBONate** 800 MG TAB PO SCH ×3 (08:44→17:48)
[2016-07-05] MEDS: LACTOBACILLUS ACIDOPHILUS CAP (BACID) PO SCH ×2 (08:44→21:39)
[2016-07-05] MEDS: METHYLPHENIDATE 5 MG TAB PO SCH ×2 (08:44→12:22)
[2016-07-05] MEDS: risperiDONE 2 MG TAB PO SCH (08:44)
[2016-07-05] MEDS: METHADONE 10 MG TAB (S0109) PO SCH ×3 (08:45→21:43)
[2016-07-05] MEDS: METOPROLOL TART 50 MG TAB PO SCH ×2 (08:45→21:39)
[2016-07-05 14:00] VITALS: BP 130/62
[2016-07-05 20:00] VITALS: BP 128/68
[2016-07-06] MEDS: CLINDAMYCIN 900 MG in APPROPRIATE DILUENT 1 EA IV SCH ×3 (05:53→21:23)
[2016-07-06 06:00] VITALS: BP 114/55
[2016-07-06 07:44] LABS: MEAN CORPUSCULAR HEMOGLOBIN 25.7 pg (27.0-33.0); MEAN CORPUSCULAR HGB CONC 29.8 g/dl (32.0-36.5); MEAN CORPUSCULAR VOLUME 86.1 fl (80.0-96.0); RED CELL DISTRIBUTION WIDTH 16.7 % (11.5-14.5); WHITE BLOOD COUNT 5.6 K/mm3 (4.0-10.0)
[2016-07-06] MEDS ORDERED: EMLA CREAM 5GM (LIDOCAINE/PRILOCAINE) TOP ONE (08:00)
[2016-07-06] MEDS ORDERED: BOTULINUM INJ 100 UNITS (J0585) IM ONE (08:00)
[2016-07-06 08:19] LABS: CALCIUM LEVEL 9.4 MG/DL (8.8-10.2); CREATININE FOR GFR 4.63 MG/DL (0.70-1.30); GLOMERULAR FILTRATION RATE 13.8 (>49); POTASSIUM SERUM 4.2 MEQ/L (3.5-5.1)
[2016-07-06] MEDS: HumaLOG INSULIN (NovoLOG) PER UNIT SC SCH ×3 (08:19→18:25)
[2016-07-06] MEDS: LACTOBACILLUS ACIDOPHILUS CAP (BACID) PO SCH ×2 (08:19→21:22)
[2016-07-06] MEDS: ASPIRIN 81 MG ENTERIC TAB PO SCH (08:19)
[2016-07-06] MEDS: PANTOPRAZOLE 40MG TAB (PROTONIX) PO SCH (08:19)
[2016-07-06] MEDS: (RENVELA) SEVELAMER **CARBONate** 800 MG TAB PO SCH ×3 (08:19→18:32)
[2016-07-06] MEDS: risperiDONE 2 MG TAB PO SCH (08:19)
[2016-07-06] MEDS: METHYLPHENIDATE 5 MG TAB PO SCH ×2 (08:19→12:41)
[2016-07-06] MEDS: METHADONE 10 MG TAB (S0109) PO SCH ×3 (08:20→21:21)
[2016-07-06] MEDS: METOPROLOL TART 50 MG TAB PO SCH ×2 (08:22→21:22)
--- NOTE | 2016-07-06 10:16 | IPN ---
DATE: 07/05/2016 Mr. Diaz is seen this morning on his bedside. He has complaint of feeling dizzy. His appetite has been poor but no vomiting or diarrhea reported. He has no dyspnea, chest pain, fever or chills. He had acute renal failure following severe sepsis and has been requiring dialysis. Now his urine output has improved. However kidney function has not shown any significant change in his lab work. His last dialysis was performed on Wednesday. He is undergoing rehab due to generalized weakness and inability to ambulate. PHYSICAL EXAMINATION: Temperature 98.3 degrees Fahrenheit, heart rate 80 per minute and respiratory rate 18 per minute. Blood pressure 120/58 mmHg and oxygen saturation 98% on room air. Head: Is atraumatic. Ears, nose and throat are unremarkable. Neck is supple without JVD or thyroid enlargement. Heart: Sounds are regular and lungs clear to auscultation. Abdomen: Soft and nontender. Extremities: Have no cyanosis or clubbing. He does have 1+ edema on lower extremities. LABORATORY DATA: Today's labs show WBC count 4.9, hemoglobin 9.0, hematocrit 29.3. Sodium 133 and potassium 4.2. BUN 43 and creatinine 4.04. Calcium level is 9.5 and glucose 131. PROBLEM" 1. Acute renal failure requiring hemodialysis. The patient had about 1700 urine output yesterday, however, his kidney function does not seem to show any improvement. We will reevaluate his labs tomorrow and then decide about dialysis. 2. Hyponatremia. This is mild and related to positive fluid balance and acute renal failure. No intervention is indicated and it will correct with dialysis if we dialyze him tomorrow. His electrolytes will be checked anyway tomorrow morning. 3. Anemia. His anemia is stable and improving. The patient remains on Aranesp once a week. 4. Dizziness, probably related to medications and his bedridden condition. He does get metoprolol 50 mg twice a day, however, his blood pressure has been reasonably well-controlled. We will continue to monitor without any changes. 5. Generalized weakness and deconditioning. The patient continues with physical therapy.
[2016-07-06] MEDS ORDERED: HEPARIN 1,000 UNITS/ML 10ML VIAL (FOR RADIOLOGY& DIALYSIS ONLY) IV ONE (10:45)
[2016-07-06] MEDS ORDERED: HEPARIN 1,000 UNITS/ML 10ML VIAL (FOR RADIOLOGY& DIALYSIS ONLY) XX ONE (10:45)
--- NOTE | 2016-07-06 11:42 | IPNPDOC ---
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 Patient who is saying up at bedside expressing having had some intermittent pain in the right thigh anteriorly a couple times throughout the weekend that has resolved by itself. No calf pain. No fever or chills and overall pain control is been fairly good. Botox treatment of the right shoulder is scheduled for tonight. ALLERGIES: See Below MEDICATIONS: Reviewed, see below. OBJECTIVE: VITAL SIGNS: Please see below. PHYSICAL EXAMINATION: GENERAL: Well-nourished well-developed middle-aged white male who is alert and oriented 4. Speech is clear coherent and appropriate with occasional Tourette interjections. Right shoulder and hip control actually appeared to be somewhat improved today and patient is doing well sitting on the edge of the bed without much in the way of support. HEENT: Head still tilted to the left and slightly. CARDIOVASCULAR: Regular rate and rhythm with normal S1 and S2 without S3-S4 murmurs or rubs. 2 out 4 bilateral radial pulses and good capillary perfusion and nailbeds of the hands. LUNGS: All lin clear to auscultation. ABDOMEN: Flat, benign, bowel sounds positive in all quadrants. NEUROLOGICAL: No significant change at this time just appears to have somewhat better right body control in sitting. SKIN: Legs continue to improve. LABORATORY DATA: Reviewed. Please see below. MICROBIOLOGY: Please see below. ASSESSMENT AND PLAN: 1. Rehabilitation of debilitation secondary to vasculitis and infection: Patient overall showing better endurance, transfer skills with sliding board from bed to wheelchair as well as bed mobility. Patient's doubting that he has much control with his lower extremities as he feels weak in general, but note that this is not what PT and OT is telling them on their feedback. Patient did request a disability form for his insurance be filled out today I have done. I anticipate that patient who is doing much better will not be able to return to work for at least 3-4 weeks however especially with bath of the Botox for tone control he has a potential to exceed his prior level of function in the last 2 years with transitioning from inpatient to home and outpatient PT and OT. This should help his with assisting him in mobility and ADLs as well as his function and safety when he does return to work. 2. Acute kidney injury on end-stage renal disease: Nephrology and internal medicine notes appreciated and lab support that patient does need to continue with dialysis as not ready for any further weaning at this time. 3. Right sided by tone: I do believe that patient will also benefit from Botox treatment to the right hip as well as right shoulder. I do anticipate that a lot of the benefit will be achieved in home care PT/OT and then outpatient PT and OT over the next 3 months. This is where I think patient has chance again significant functional strength for aiding his own ADLs and mobility. 4. Discharge Planning: Patient making progress in PT/OT and now has cleared DELIVERY MAN since restart of Ritalin. Patient improving right body function with tone management techniques and should have the ability to exceed level of function before this exacerbation with more right body control. Botox should build in effects to assist this. Target discharge to home with for 07/16/2016. TIME SPENT: Chart Review, examination and documentation greater than 35 minutes. Allergies Coded Allergies: Sulfamethoxazole w/Trimethoprim (Verified Allergy, Unknown, 07/01/16) Vital Signs Vital Signs Date Time Temp Pulse Resp B/P Pulse Ox O2 Delivery O2 Flow Rate FiO2 07/06/16 08:22 79 114/55 07/06/16 08:20 18 Room Air 07/06/16 06:00 100.2 97 Laboratory Data CBC/BMP Laboratory Tests 07/06/16 07:32 Calcium Level 9.4, Red Blood Count 3.46 L, Mean Corpuscular Volume 86.1, Mean Corpuscular Hemoglobin 25.7 L, Mean Corpuscular Hemoglobin Concent 29.8 L, Red Cell Distribution Width 16.7 H Labs 24H Laboratory Tests 2 07/05/16 11:38: Bedside Glucose (Misc Panel) 192H 07/05/16 16:38: Bedside Glucose (Misc Panel) 93 07/05/16 20:49: Bedside Glucose (Misc Panel) 186H 07/06/16 06:01: Bedside Glucose (Misc Panel) 181H 07/06/16 07:32: Anion Gap 9, Blood Urea Nitrogen 50H, Creatinine 4.63H, Sodium Level 134L, Potassium Level 4.2, Chloride Level 97L, Carbon Dioxide Level 28, Calcium Level 9.4, Glomerular Filtration Rate 13.8L Microbiology Microbiology 07/01/16 Urine Culture - Final, Complete Current Medications Current Medications Current Medications Acetaminophen (Tylenol Tab) 650 mg Q6HP PRN PO PAIN; Start 07/01/16 at 11:30; Stop 07/31/16 at 11:29 Aspirin (Ecotrin) 81 mg DAILY PO Last administered on 07/06/16 08:19; Start at 09:00; Stop 08/01/16 at 08:59 Calcium Carbonate (Tums) 1,000 mg Q4HP PRN PO HEARTBURN; Start 07/01/16 at 11: 30; Stop 07/31/16 at 11:29 Clindamycin Phosphate/IV Miscellaneous Supplies (Cleocin) 50 ml @ 50 mls/hr Q8H IV Last administered on 07/06/16 05:53; Start 07/01/16 at 14:00; Stop at 13:59 Darbepoetin Pablo (Aranesp (Dialysis Use)) 200 mcg HD IV ; Start 07/03/16 at 08: 00; Stop 08/02/16 at 07:59 Dextrose (Dextrose 50%) 25 ml ASDIRECTED PRN IV SEE LABEL COMMENTS; Start 07/01 at 13:45; Stop 07/31/16 at 13:44 Docusate Sodium (Colace) 100 mg Q12HP PRN PO CONSTIPATION; Start 07/01/16 at 11 :30; Stop 07/31/16 at 11:29 Glucagon (Glucagon) 1 mg ASDIRECTED PRN SC SEE LABEL COMMENTS; Start 07/01/16 at 13:45; Stop 07/31/16 at 13:44 Glucose (Glucose) 16 GM ASDIRECTED PRN PO SEE LABEL COMMENTS; Start 07/01/16 at 13:45; Stop 07/31/16 at 13:44 Home Med (Med Rec Complete!) ASDIRECTED XX ; Start 07/01/16 at 14:15; Stop 03/07 at 14:22; Status DC Hydromorphone HCl (Dilaudid) 2 mg Q4HP PRN PO MODERATE/SEVERE PAIN (PS 5-10) Last administered on 07/05/16 15:24; Start 07/01/16 at 12:15; Stop 07/08/16 at 09:00 Insulin Human Lispro (HumaLOG INSULIN) SEE PROTOCOL TABLE AC SC Last administered on 07/06/16 08:19; Start 07/01/16 at 17:30; Stop 07/31/16 at 17:29 Iron (Venofer) 100 mg HD IV ; Start 07/02/16 at 09:45; Stop 08/05/16 at 09:46 Lactobacillus Acidophilus (Bacid) 1 ea BID PO Last administered on 07/06/16 08 :19; Start 07/01/16 at 21:00; Stop 07/31/16 at 20:59 Methadone HCl (Dolophine) 35 mg DAILY@14 PO Last administered on 07/05/16 13: 49; Start 07/03/16 at 14:00; Stop 07/10/16 at 13:59 Methadone HCl (Dolophine) 40 mg DAILY@08,22 PO Last administered on 07/06/16 08:20; Start 07/03/16 at 22:00; Stop 07/10/16 at 21:59 Methadone HCl (Dolophine) 40 mg TID PO Last administered on 07/03/16 08:10; Start 07/01/16 at 16:00; Stop 07/03/16 at 10:00; Status DC Methylphenidate HCl (Ritalin) 20 mg BID@08,12 PO Last administered on 08:19; Start 07/03/16 at 08:00; Stop 07/10/16 at 07:59 Metoprolol Tartrate (Lopressor) 50 mg BID PO Last administered on 07/06/16 08: 22; Start 07/01/16 at 21:00; Stop 07/31/16 at 20:59 Mineral Oil/White Petrolatum (Eucerin) TO DRY AREAS ON RT L... BID PRN TOP Dry skin; Start 07/01/16 at 11:30; Stop 07/31/16 at 11:29 Miscellaneous (Unresolved Non-Formulary Med Order) SEE LABEL COMMENTS UNRESOLVED XX ; Start 07/01/16 at 00:01; Stop 07/02/16 at 19:02; Status DC Non-Formulary Medication Liquacel Ligquid Prot... DAILY PO ; Start 07/02/16 at 09:00; Stop 07/02/16 at 09:51; Status DC Non-Formulary Medication Procrit 10,000 Unitis... 2XW IV ; Start 07/01/16 at 12: 15; Stop 07/02/16 at 09:50; Status DC Nystatin (Mycostatin Powder, Nystop) BIDP PRN TOP RASH; Start 07/01/16 at 11: 30; Stop 07/31/16 at 11:29 Pantoprazole Sodium (Protonix) 40 mg DAILY PO Last administered on 07/06/16 08 :19; Start 07/02/16 at 09:00; Stop 08/01/16 at 08:59 Risperidone (RisperDAL) 2 mg DAILY PO Last administered on 07/06/16 08:19; Start 07/02/16 at 09:00; Stop 08/01/16 at 08:59 Senna (Senokot) 2 tab QHSP PRN PO CONSTIPATION; Start 07/01/16 at 11:30; Stop 07/31/16 at 11:29 Sevelamer Carbonate (Renvela) 800 mg WM PO Last administered on 07/06/16 08:19 ; Start 07/01/16 at 12:30; Stop 07/31/16 at 12:29 Triamcinolone Acetonide (Kenalog 0.1% Cream) prn fungal rash for 7 Days BID PRN TOP RASH Last administered on 07/02/16 08:31; Start 07/01/16 at 11:30; Stop 07/08/16 at 11:29 CHRIS DUMONT MD Jul 06, 2016 11:42
[2016-07-06 17:15] VITALS: BP 144/68
[2016-07-06 20:00] VITALS: BP 117/57
--- NOTE | 2016-07-06 20:47 | IPN ---
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 I saw him this morning on his bedside too. He is feeling better today. However, reports that yesterday he had pain in his right lower extremity for about 8 hours, which has completely resolved by itself. He denies any dyspnea, chest pain, nausea or vomiting. PHYSICAL EXAMINATION: He has a temperature of 100.2 degrees Fahrenheit, heart rate 80 per minute and respiratory rate 18 per minute. Blood pressure 114/55 mmHg and oxygen saturation 97% on room air. His head is atraumatic. Neck is supple and without jugular venous distention (JVD) or thyroid enlargement. Hemodialysis catheter in right internal jugular vein is present. There is no drainage or bleeding at the catheter site. Ears, nose and throat are unremarkable. Heart sounds are regular and lungs clear to auscultation. Abdomen: Soft and nontender. Bowel sounds are normal and there is no palpable organomegaly. Extremities have no cyanosis or clubbing. Skin has no rash or ulcers. Neurologically, there is no jacquard loom card changer the last 48 hours. Today's labs show WBC count 5.6, hemoglobin 8.9 and hematocrit 29.8. Platelets 271. Sodium 134 and potassium 4.2. BUN 50 and creatinine 4.63. PROBLEMS: 1. Acute renal failure. The patient is nonoliguric; however, does not have any significant improvement in his kidney function. He remains dialysis dependent and is being dialyzed again this afternoon. He is tolerating dialysis treatment very well. 2. Hyponatremia. Most likely related to acute renal failure. This is mild and likely to correct with hemodialysis. No other specific intervention is indicated. 3. Anemia. His anemia has been stable. There is no indication for transfusion, and I will continue to treat him with Aranesp 200 mcg once a week. All other issues are being addressed by acute rehabilitation service or hospitalist service.
[2016-07-07 06:00] VITALS: BP 116/62
[2016-07-07] MEDS: CLINDAMYCIN 900 MG in APPROPRIATE DILUENT 1 EA IV SCH ×3 (06:04→22:23)
[2016-07-07 06:54] LABS: MEAN CORPUSCULAR HEMOGLOBIN 26.1 pg (27.0-33.0); MEAN CORPUSCULAR HGB CONC 30.2 g/dl (32.0-36.5); MEAN CORPUSCULAR VOLUME 86.3 fl (80.0-96.0); RED CELL DISTRIBUTION WIDTH 17.1 % (11.5-14.5); WHITE BLOOD COUNT 5.4 K/mm3 (4.0-10.0)
[2016-07-07 07:15] LABS: CALCIUM LEVEL 9.2 MG/DL (8.8-10.2); CREATININE FOR GFR 3.35 MG/DL (0.70-1.30); GLOMERULAR FILTRATION RATE 20.1 (>49); POTASSIUM SERUM 4.3 MEQ/L (3.5-5.1)
--- NOTE | 2016-07-07 07:42 | RO ---
DATE OF PROCEDURE: 07/06/16 PREPROCEDURE DIAGNOSIS: Right shoulder pain, Tourette's syndrome and focal dystonia or hypertonicity. POSTPROCEDURE DIAGNOSIS: Right shoulder pain, Tourette's syndrome and focal dystonia or hypertonicity. PROCEDURE: Botox chemodenervation right upper extremity with needle electromyography for guidance in conjunction with chemodenervation. 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 ESTIMATED BLOOD LOSS: PROCEDURE IN DETAIL: We explained the risks, benefits, alternatives of the procedure during our consent conversation and answered all of his questions. He expressed understanding, feels the risk benefit ratio is favorable to proceed, and signed written witnessed consent on Wednesday. Before he agreed to proceed, he wanted me to take to Dr. Henning and make sure Dr. Henning wanted him to proceed. He, however , also only agreed to the minimum amount of injections because he wants to see how it works. Site side verification was performed with the registered nurse Sofia. We reconstituted one bottle of Botox of 100 units using 2 mL of sterile normal saline. We used preserved free normal saline for the reconstitution and injected using a 30 gauge, 25 mm needle. We positioned him in supine position. We prepped each injection site using alcohol and used aseptic technique. At each injection site, we used EMG guidance and achieved negative aspiration for blood or fluid prior to proceeding with an injection. All the muscles did show motor activity with stretching raising the possibility of dystonia or hypertonicity. The following muscles were injected: Right pectoralis, 75 units in four sites. A total of 75 units was injected and the additional 25 units not injected was wasted. He tolerated the procedure well. There were no complications. He was monitored for a short time after the procedure to ensure no adverse effects. PITA
[2016-07-07] MEDS: (RENVELA) SEVELAMER **CARBONate** 800 MG TAB PO SCH ×3 (08:24→17:37)
[2016-07-07] MEDS: ASPIRIN 81 MG ENTERIC TAB PO SCH (08:24)
[2016-07-07] MEDS: METHYLPHENIDATE 5 MG TAB PO SCH ×2 (08:25→13:29)
[2016-07-07] MEDS: risperiDONE 2 MG TAB PO SCH (08:25)
[2016-07-07] MEDS: METOPROLOL TART 50 MG TAB PO SCH ×2 (08:25→22:21)
[2016-07-07] MEDS: PANTOPRAZOLE 40MG TAB (PROTONIX) PO SCH (08:25)
[2016-07-07] MEDS: LACTOBACILLUS ACIDOPHILUS CAP (BACID) PO SCH ×2 (08:25→22:21)
[2016-07-07] MEDS: METHADONE 10 MG TAB (S0109) PO SCH ×3 (08:26→22:22)
[2016-07-07] MEDS: HumaLOG INSULIN (NovoLOG) PER UNIT SC SCH ×3 (08:26→17:37)
--- NOTE | 2016-07-07 10:58 | IPNPDOC ---
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 Patient informs me he had had Remicade week before the onset of his symptoms though he finds it difficult to believe that he has vasculitis. He does however note that his right shoulder and hip are more comfortable and moving better and overall pain control is good and he is looking forward to standing with the walker today. ALLERGIES: See Below MEDICATIONS: Reviewed, see below. OBJECTIVE: VITAL SIGNS: Please see below. PHYSICAL EXAMINATION: GENERAL: Well-developed middle-aged white male with some decrease in muscular volume in the distal upper and lower extremities and healing of leg incisions and sores with the flaking off of calluses. There is still some darkish red coloration to both legs. No acute distress. HEENT: Patient turning his head somewhat less to the left and elevating as it appears some decrease in tone in the right neck cowl muscles versus prior exams. CARDIOVASCULAR: Regular rate and rhythm with normal S1 and S2. LUNGS: All lin clear to auscultation. NEUROLOGICAL: Patient alert and oriented 4, speech is clear coherent and appropriate affect is a little anxious but pleasant and cooperative. Some elevation of the right shoulder but overall a bit more relaxed with more comfortable abduction and abduction, forward flexion and extension though still fairly limited. LABORATORY DATA: Reviewed. Please see below. MICROBIOLOGY: Please see below. ASSESSMENT AND PLAN: 1. Rehabilitation of debilitation secondary to vasculitis as noted above: Patient did receive his Botox injection last night but is getting benefit on tone control from physical and occupational therapy and this is allowing him be more comfortable as well as he is progressing in mobility and ADLs. TIME SPENT: Chart Review, examination and documentation greater than 15 minutes. Allergies Coded Allergies: Sulfamethoxazole w/Trimethoprim (Verified Allergy, Unknown, 07/01/16) Vital Signs Vital Signs Date Time Temp Pulse Resp B/P Pulse Ox O2 Delivery O2 Flow Rate FiO2 07/07/16 08:26 18 07/07/16 08:25 94 116/62 07/07/16 06:00 100.0 97 Room Air Laboratory Data CBC/BMP Laboratory Tests 07/07/16 06:32 Calcium Level 9.2, Red Blood Count 3.13 L, Mean Corpuscular Volume 86.3, Mean Corpuscular Hemoglobin 26.1 L, Mean Corpuscular Hemoglobin Concent 30.2 L, Red Cell Distribution Width 17.1 H Labs 24H Laboratory Tests 2 07/06/16 11:51: Bedside Glucose (Misc Panel) 140H 07/06/16 18:21: Bedside Glucose (Misc Panel) 228H 07/06/16 20:18: Bedside Glucose (Misc Panel) 181H 07/07/16 06:31: Bedside Glucose (Misc Panel) 125H 07/07/16 06:32: Anion Gap 6L, Blood Urea Nitrogen 35H, Creatinine 3.35H, Sodium Level 138, Potassium Level 4.3, Chloride Level 101, Carbon Dioxide Level 31, Calcium Level 9.2, Glomerular Filtration Rate 20.1L Microbiology Microbiology 07/01/16 Urine Culture - Final, Complete Current Medications Current Medications Current Medications Acetaminophen (Tylenol Tab) 650 mg Q6HP PRN PO PAIN; Start 07/01/16 at 11:30; Stop 07/31/16 at 11:29 Aspirin (Ecotrin) 81 mg DAILY PO Last administered on 07/07/16 08:24; Start at 09:00; Stop 08/01/16 at 08:59 Calcium Carbonate (Tums) 1,000 mg Q4HP PRN PO HEARTBURN; Start 07/01/16 at 11: 30; Stop 07/31/16 at 11:29 Clindamycin Phosphate/IV Miscellaneous Supplies (Cleocin) 50 ml @ 50 mls/hr Q8H IV Last administered on 07/07/16 06:04; Start 07/01/16 at 14:00; Stop at 13:59 Darbepoetin Pablo (Aranesp (Dialysis Use)) 200 mcg HD IV ; Start 07/03/16 at 08: 00; Stop 08/02/16 at 07:59 Dextrose (Dextrose 50%) 25 ml ASDIRECTED PRN IV SEE LABEL COMMENTS; Start 07/01 at 13:45; Stop 07/31/16 at 13:44 Docusate Sodium (Colace) 100 mg Q12HP PRN PO CONSTIPATION; Start 07/01/16 at 11 :30; Stop 07/31/16 at 11:29 Glucagon (Glucagon) 1 mg ASDIRECTED PRN SC SEE LABEL COMMENTS; Start 07/01/16 at 13:45; Stop 07/31/16 at 13:44 Glucose (Glucose) 16 GM ASDIRECTED PRN PO SEE LABEL COMMENTS; Start 07/01/16 at 13:45; Stop 07/31/16 at 13:44 Home Med (Med Rec Complete!) ASDIRECTED XX ; Start 07/01/16 at 14:15; Stop 03/07 at 14:22; Status DC Hydromorphone HCl (Dilaudid) 2 mg Q4HP PRN PO MODERATE/SEVERE PAIN (PS 5-10) Last administered on 07/05/16 15:24; Start 07/01/16 at 12:15; Stop 07/08/16 at 09:00 Insulin Human Lispro (HumaLOG INSULIN) SEE PROTOCOL TABLE AC SC Last administered on 07/07/16 08:26; Start 07/01/16 at 17:30; Stop 07/31/16 at 17:29 Iron (Venofer) 100 mg HD IV ; Start 07/02/16 at 09:45; Stop 08/05/16 at 09:46 Lactobacillus Acidophilus (Bacid) 1 ea BID PO Last administered on 07/07/16 08 :25; Start 07/01/16 at 21:00; Stop 07/31/16 at 20:59 Methadone HCl (Dolophine) 35 mg DAILY@14 PO Last administered on 07/06/16 15: 25; Start 07/03/16 at 14:00; Stop 07/10/16 at 13:59 Methadone HCl (Dolophine) 40 mg DAILY@08,22 PO Last administered on 07/07/16 08:26; Start 07/03/16 at 22:00; Stop 07/10/16 at 21:59 Methadone HCl (Dolophine) 40 mg TID PO Last administered on 07/03/16 08:10; Start 07/01/16 at 16:00; Stop 07/03/16 at 10:00; Status DC Methylphenidate HCl (Ritalin) 20 mg BID@08,12 PO Last administered on 08:25; Start 07/03/16 at 08:00; Stop 07/10/16 at 07:59 Metoprolol Tartrate (Lopressor) 50 mg BID PO Last administered on 07/07/16 08: 25; Start 07/01/16 at 21:00; Stop 07/31/16 at 20:59 Mineral Oil/White Petrolatum (Eucerin) TO DRY AREAS ON RT L... BID PRN TOP Dry skin; Start 07/01/16 at 11:30; Stop 07/31/16 at 11:29 Miscellaneous (Unresolved Non-Formulary Med Order) SEE LABEL COMMENTS UNRESOLVED XX ; Start 07/01/16 at 00:01; Stop 07/02/16 at 19:02; Status DC Non-Formulary Medication Liquacel Ligquid Prot... DAILY PO ; Start 07/02/16 at 09:00; Stop 07/02/16 at 09:51; Status DC Non-Formulary Medication Procrit 10,000 Unitis... 2XW IV ; Start 07/01/16 at 12: 15; Stop 07/02/16 at 09:50; Status DC Nystatin (Mycostatin Powder, Nystop) BIDP PRN TOP RASH; Start 07/01/16 at 11: 30; Stop 07/31/16 at 11:29 Pantoprazole Sodium (Protonix) 40 mg DAILY PO Last administered on 07/07/16 08 :25; Start 07/02/16 at 09:00; Stop 08/01/16 at 08:59 Risperidone (RisperDAL) 2 mg DAILY PO Last administered on 07/07/16 08:25; Start 07/02/16 at 09:00; Stop 08/01/16 at 08:59 Senna (Senokot) 2 tab QHSP PRN PO CONSTIPATION; Start 07/01/16 at 11:30; Stop 07/31/16 at 11:29 Sevelamer Carbonate (Renvela) 800 mg WM PO Last administered on 07/07/16 08:24 ; Start 07/01/16 at 12:30; Stop 07/31/16 at 12:29 Triamcinolone Acetonide (Kenalog 0.1% Cream) prn fungal rash for 7 Days BID PRN TOP RASH Last administered on 07/02/16 08:31; Start 07/01/16 at 11:30; Stop 07/08/16 at 11:29 CHRIS DUMONT MD Jul 07, 2016 10:58
[2016-07-07 14:00] VITALS: BP 121/62
--- NOTE | 2016-07-07 18:29 | IPN ---
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 He is in better spirits today. He underwent hemodialysis yesterday which he tolerated well. He denies feeling dizzy after the most recent dialysis. He denies any fever or chills. He reports that his appetite is also improving. PHYSICAL EXAMINATION: On physical examination, his temperature is 100 degrees Fahrenheit, heart rate 94 per minute and respiratory rate 18 per minute. Blood pressure 116/62 mmHg and oxygen saturation 97% on room air. Head is atraumatic. Ears, nose and throat are unremarkable. Neck is supple and without jugular venous distention (JVD) or thyroid enlargement. Dialysis catheter in right internal jugular vein is intact. Heart sounds are regular. Lungs sound clear to auscultation. Abdomen is soft and nontender. Bowel sounds are normal. Extremities have no cyanosis or clubbing. Skin has no rash or ulcers. Neurologically, he is awake, alert and oriented times three. He is at his baseline mentation. LABORATORY DATA: Today's laboratories show WBC count 5.4, hemoglobin 8.2 and hematocrit 27.0. Platelets 269. Sodium 138 and potassium 4.3. BUN 35 and creatinine 3.35. Calcium level 9.2. PROBLEMS: 1. Acute renal failure. The patient is non-oliguric but dialysis dependent. No significant improvement in kidney function since his admission here. He was dialyzed yesterday and we will reevaluate him for dialysis tomorrow. 2. Hyponatremia. His sodium level has improved to normal with dialysis. Electrolytes will be checked again tomorrow. No intervention is indicated at this point. 3. Anemia. His anemia is most likely related to iron deficiency and acute renal failure. He is currently receiving intravenous iron and Aranesp once a week which will be continued. There is no indication for transfusion at this point. 4. Generalized weakness and deconditioning. The patient continues with acute rehab. 5. Dizziness and hypotension. At present, his blood pressure is stable and dizziness has improved. No intervention is needed.
[2016-07-07 20:30] VITALS: BP 139/61
--- NOTE | 2016-07-07 22:03 | IPN ---
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 Today was primarily a procedure visit, but we did a brief evaluation and management. I reviewed the gymnastic coach's interval notes and Dr. Henning's interval notes. Dr. Henning wishes to proceed with the Botox, and I confirmed with Dr. Neves that he still agrees to proceed with Botox. He denied any new complaints. PHYSICAL EXAMINATION: GENERAL: Remains in no acute distress but is quite slim, somewhat cachectic, well groomed, pleasant, with some tics associated with his Tourette's, including some retrocollis and vocal tics, including expletives. VITAL SIGNS: Temperature 100.4, pulse 102, respirations 18, blood pressure (BP) 144/68, oxygen saturation 98% on room air. CARDIOVASCULAR: Inspection and palpation professed some similar, including venous stasis changes and significant pitting edema in lower extremities. MUSCULOSKELETAL: Gait and station not assessed today. Inspection of the cervical spine and bilateral upper extremities and assessment of cervical spine and bilateral upper extremities similar, including the cervical surgery scar, bilateral ulnar intrinsic wasting. Today, however, he remained having similarly with the shoulder, the latissimus dorsi would not really palpably kick in, but the abduction did cause the lateral aspect of the pectoralis, probably the pectoralis major, start to have some palpable tone or contracture; however, what we were able to elicit today was that when he had a motor tic, he did have palpable contraction of the latissimus. Since the latissimus is not only often involved in shoulder internal rotation but also shoulder adduction, we offered to add the latissimus to our regimen today, but he wanted to stick with our plan of just doing the pectoralis and really do only the most prominent muscles that might be involved and basically do the minimum so he has an idea of what the minimum entails before he would want to try expanding amount of the muscles injected and the regions. NEUROPSYCHIATRIC: Mood and affect euthymic. He is approximately alert and oriented times three. LABORATORY FINDINGS: His CBC from today inclusive of a WBC 5.6, hemoglobin and hematocrit 8.9 and 29.8, platelets 271, RDW 16.7 with MCHC and MCH low at 29.8 and 25.7. The basic metabolic profile from today is noted, including sodium 134, chloride 97, BUN 50, creatinine 4.63, glucose 170, ASSESSMENT AND PLAN: We are just treating the aspect of his right shoulder and only a certain aspect, that being the possibility of a focal dystonia that could potentially be impacting his function, and therefore he elects to a trial of Botox. As mentioned above, he does not want to expand it beyond a single muscle. He wants to stick to the bare minimum, and the most commonly affected muscle with adduction would be the pectoralis. I offered to add the latissimus, because, at least today, when he had his tic, we did notice that the latissimus would fire, but he says he has had those tics ever since he was age 6, and the amount of pain with the tic itself is minimal, so he does not want to add the latissimus. He wants to stick to just doing the pectoralis. He also does not want to do the hip. He wants to first start with the right shoulder area. He wants to start at a low dose. The shoulder adductors and internal rotators are primarily the pectoralis complex, the latissimus dorsi, the teres major, and the subscapularis, but the main adductors , I think, are really the pectoralis complex as well as to some extent the latissimus, so the typical dose for the pectoralis is an average starting dose 100, but he wants to start really conservatively, so the typical dose is 75-150, so will start with 75. As mentioned, I talked to him about adding other potential muscles, such as the latissimus dorsi, but he declined. Typically the injection into the pectoralis is spread out over four sites, so will plan on doing so. The effect, I again counseled him, is probably going take close to at least a week to have any initial effect and then a couple weeks to peak, so by that time he might be home, but hopefully he will start to have a little bit of affect that might help him functionally soon, perhaps as soon as a week, and that might benefit him during his hip stay. If he wishes to continue, he can talk to Dr. Henning about arranging to have the Botox injections and followup continued, whether it be close to his home or with me here in [place]. Again, thank you very much for allowing me to participate in his care. I will followup with him as needed, and please contact me if I can be of further assistance. PITA
[2016-07-08 04:26] VITALS: BP 109/59
[2016-07-08] MEDS: CLINDAMYCIN 900 MG in APPROPRIATE DILUENT 1 EA IV SCH ×3 (05:50→21:20)
[2016-07-08 07:56] LABS: MEAN CORPUSCULAR HEMOGLOBIN 26.6 pg (27.0-33.0); MEAN CORPUSCULAR HGB CONC 30.7 g/dl (32.0-36.5); MEAN CORPUSCULAR VOLUME 86.9 fl (80.0-96.0); RED CELL DISTRIBUTION WIDTH 17.6 % (11.5-14.5); WHITE BLOOD COUNT 5.3 K/mm3 (4.0-10.0)
[2016-07-08 08:17] LABS: CALCIUM LEVEL 9.1 MG/DL (8.8-10.2); CREATININE FOR GFR 4.2 MG/DL (0.70-1.30); GLOMERULAR FILTRATION RATE 15.5 (>49); POTASSIUM SERUM 4.5 MEQ/L (3.5-5.1)
[2016-07-08] MEDS: HumaLOG INSULIN (NovoLOG) PER UNIT SC SCH ×3 (08:38→17:44)
[2016-07-08] MEDS: METHADONE 10 MG TAB (S0109) PO SCH ×3 (08:39→21:21)
[2016-07-08] MEDS: LACTOBACILLUS ACIDOPHILUS CAP (BACID) PO SCH ×2 (08:39→21:21)
[2016-07-08] MEDS: (RENVELA) SEVELAMER **CARBONate** 800 MG TAB PO SCH ×3 (08:39→17:44)
[2016-07-08] MEDS: METHYLPHENIDATE 5 MG TAB PO SCH ×2 (08:39→12:09)
[2016-07-08] MEDS: risperiDONE 2 MG TAB PO SCH (08:40)
[2016-07-08] MEDS: ASPIRIN 81 MG ENTERIC TAB PO SCH (08:40)
[2016-07-08] MEDS: PANTOPRAZOLE 40MG TAB (PROTONIX) PO SCH (08:40)
[2016-07-08] MEDS: METOPROLOL TART 50 MG TAB PO SCH ×2 (08:40→21:22)
[2016-07-08] MEDS ORDERED: HYDROCORTISONE 1% CREAM 30 GM TOP PRN (11:15)
[2016-07-08] MEDS ORDERED: HEPARIN 1,000 UNITS/ML 10ML VIAL (FOR RADIOLOGY& DIALYSIS ONLY) IV ONE (11:30)
[2016-07-08] MEDS ORDERED: HEPARIN 1,000 UNITS/ML 10ML VIAL (FOR RADIOLOGY& DIALYSIS ONLY) XX ONE (11:30)
--- NOTE | 2016-07-08 13:44 | IPNPDOC ---
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 Patient has requested restarting his Crestor, and also hydrocortisone 1% cream to the perirectal area as needed. Patient reports his pain has been fairly well controlled. He is resting well at night. He denies any fever or chills. He would like more focus pain relief to the right shoulder, hip and thigh. ALLERGIES: See Below MEDICATIONS: Reviewed, see below. OBJECTIVE: VITAL SIGNS: Please see below. PHYSICAL EXAMINATION: GENERAL: Well-developed middle-aged white male in. Mild musculoskeletal distress with increased right body tone that causes him to turn and tilt head with posterior right sided neck muscles having increased tone. Patient noted to be moving right upper extremity somewhat better and tolerating sitting up better. HEENT: As above, conjugate vision, no facial droop and clear speech. CARDIOVASCULAR: Regular rate and rhythm with normal S1 and S2 and 2 out 4 radial pulses. LUNGS: All lin clear auscultation. ABDOMEN: Bowel sounds present in all quadrants with abdomen is nontender and benign. NEUROLOGICAL: Patient alert and oriented 4's, he is less anxious and better spirits. SKIN: Continuing to heal prior lesions and flake off calluses. LABORATORY DATA: Reviewed. Please see below. MICROBIOLOGY: Please see below. IMAGING: No new. DVT prophylaxis ordered?: No change. ASSESSMENT AND PLAN: 1. Rehabilitation of debilitation related to vasculitis: Patient still has a lot of independence in mobility and ADLs but is broaching his baseline. However his tone in the right body is improving and this may allow patient to require less assistance. No change in discharge planning for target date of July 16. 2. Right shoulder and thigh tone and pain: I will prescribe Voltaren gel for the to get at their pharmacy and bring in for patient to use here. It has fewer side effects then oral NSAIDs it can be very effective to the sites to which is applied. Is not offered on the formulary here but can be a brought in from home medication approved by the pharmacist or patient to use. 3. Hyperlipidemia: I will restart patient's Crestor. 4. Perirectal itching: Hydrocortisone 1% cream ordered. TIME SPENT: Chart Review, examination and documentation greater than 25 minutes. Allergies Coded Allergies: Sulfamethoxazole w/Trimethoprim (Verified Allergy, Unknown, 07/01/16) Vital Signs Vital Signs Date Time Temp Pulse Resp B/P Pulse Ox O2 Delivery O2 Flow Rate FiO2 07/08/16 08:40 87 109/59 07/08/16 08:39 16 07/08/16 04:26 98.4 71 Room Air Laboratory Data CBC/BMP Laboratory Tests 07/08/16 07:33 Calcium Level 9.1, Red Blood Count 3.50 L, Mean Corpuscular Volume 86.9, Mean Corpuscular Hemoglobin 26.6 L, Mean Corpuscular Hemoglobin Concent 30.7 L, Red Cell Distribution Width 17.6 H Labs 24H Laboratory Tests 2 07/07/16 16:39: Bedside Glucose (Misc Panel) 129H 07/07/16 20:08: Bedside Glucose (Misc Panel) 136H 07/08/16 07:33: Anion Gap 8, Blood Urea Nitrogen 42H, Creatinine 4.20H, Sodium Level 135L, Potassium Level 4.5, Chloride Level 99, Carbon Dioxide Level 28, Calcium Level 9.1, Glomerular Filtration Rate 15.5L 07/08/16 11:26: Bedside Glucose (Misc Panel) 150H Microbiology Microbiology 07/01/16 Urine Culture - Final, Complete Current Medications Current Medications Current Medications Acetaminophen (Tylenol Tab) 650 mg Q6HP PRN PO PAIN; Start 07/01/16 at 11:30; Stop 07/31/16 at 11:29 Aspirin (Ecotrin) 81 mg DAILY PO Last administered on 07/08/16 08:40; Start at 09:00; Stop 08/01/16 at 08:59 Calcium Carbonate (Tums) 1,000 mg Q4HP PRN PO HEARTBURN; Start 07/01/16 at 11: 30; Stop 07/31/16 at 11:29 Clindamycin Phosphate/IV Miscellaneous Supplies (Cleocin) 50 ml @ 50 mls/hr Q8H IV Last administered on 07/08/16 05:50; Start 07/01/16 at 14:00; Stop at 13:59 Darbepoetin Pablo (Aranesp (Dialysis Use)) 200 mcg HD IV ; Start 07/03/16 at 08: 00; Stop 08/02/16 at 07:59 Dextrose (Dextrose 50%) 25 ml ASDIRECTED PRN IV SEE LABEL COMMENTS; Start 07/01 at 13:45; Stop 07/31/16 at 13:44 Docusate Sodium (Colace) 100 mg Q12HP PRN PO CONSTIPATION; Start 07/01/16 at 11 :30; Stop 07/31/16 at 11:29 Glucagon (Glucagon) 1 mg ASDIRECTED PRN SC SEE LABEL COMMENTS; Start 07/01/16 at 13:45; Stop 07/31/16 at 13:44 Glucose (Glucose) 16 GM ASDIRECTED PRN PO SEE LABEL COMMENTS; Start 07/01/16 at 13:45; Stop 07/31/16 at 13:44 Home Med (Med Rec Complete!) ASDIRECTED XX ; Start 07/01/16 at 14:15; Stop 03/07 at 14:22; Status DC Hydrocortisone (Hydrocortisone 1% Cream) Apply a small herberth... QIDP PRN TOP anal burning and itching; Start 07/08/16 at 11:15; Stop 08/07/16 at 11:14 Hydromorphone HCl (Dilaudid) 2 mg Q4HP PRN PO MODERATE/SEVERE PAIN (PS 5-10) Last administered on 07/05/16 15:24; Start 07/01/16 at 12:15; Stop 07/08/16 at 09:00; Status DC Insulin Human Lispro (HumaLOG INSULIN) SEE PROTOCOL TABLE AC SC Last administered on 07/08/16 11:51; Start 07/01/16 at 17:30; Stop 07/31/16 at 17:29 Iron (Venofer) 100 mg HD IV ; Start 07/02/16 at 09:45; Stop 08/05/16 at 09:46 Lactobacillus Acidophilus (Bacid) 1 ea BID PO Last administered on 07/08/16 08 :39; Start 07/01/16 at 21:00; Stop 07/31/16 at 20:59 Methadone HCl (Dolophine) 35 mg DAILY@14 PO Last administered on 07/07/16 14: 09; Start 07/03/16 at 14:00; Stop 07/10/16 at 13:59 Methadone HCl (Dolophine) 40 mg DAILY@08,22 PO Last administered on 07/08/16 08:39; Start 07/03/16 at 22:00; Stop 07/10/16 at 21:59 Methadone HCl (Dolophine) 40 mg TID PO Last administered on 07/03/16 08:10; Start 07/01/16 at 16:00; Stop 07/03/16 at 10:00; Status DC Methylphenidate HCl (Ritalin) 20 mg BID@08,12 PO Last administered on 08:39; Start 07/03/16 at 08:00; Stop 07/10/16 at 07:59 Metoprolol Tartrate (Lopressor) 50 mg BID PO Last administered on 07/08/16 08: 40; Start 07/01/16 at 21:00; Stop 07/31/16 at 20:59 Mineral Oil/White Petrolatum (Eucerin) TO DRY AREAS ON RT L... BID PRN TOP Dry skin; Start 07/01/16 at 11:30; Stop 07/31/16 at 11:29 Miscellaneous (Unresolved Non-Formulary Med Order) SEE LABEL COMMENTS UNRESOLVED XX ; Start 07/01/16 at 00:01; Stop 07/02/16 at 19:02; Status DC Miscellaneous (Unresolved Patient Own Med Order) SEE LABEL COMMENTS UNRESOLVED XX ; Start 07/08/16 at 00:01; Stop 08/07/16 at 00:00 Non-Formulary Medication Diclofenac 1% Gel: Appl... QIDP PRN TOP PAIN; Start at 10:45; Stop 08/07/16 at 10:44; Status UNV Non-Formulary Medication Liquacel Ligquid Prot... DAILY PO ; Start 07/02/16 at 09:00; Stop 07/02/16 at 09:51; Status DC Non-Formulary Medication Procrit 10,000 Unitis... 2XW IV ; Start 07/01/16 at 12: 15; Stop 07/02/16 at 09:50; Status DC Nystatin (Mycostatin Powder, Nystop) BIDP PRN TOP RASH; Start 07/01/16 at 11: 30; Stop 07/31/16 at 11:29 Pantoprazole Sodium (Protonix) 40 mg DAILY PO Last administered on 07/08/16 08 :40; Start 07/02/16 at 09:00; Stop 08/01/16 at 08:59 Risperidone (RisperDAL) 2 mg DAILY PO Last administered on 07/08/16 08:40; Start 07/02/16 at 09:00; Stop 08/01/16 at 08:59 Senna (Senokot) 2 tab QHSP PRN PO CONSTIPATION; Start 07/01/16 at 11:30; Stop 07/31/16 at 11:29 Sevelamer Carbonate (Renvela) 800 mg WM PO Last administered on 07/08/16 11:52 ; Start 07/01/16 at 12:30; Stop 07/31/16 at 12:29 Triamcinolone Acetonide (Kenalog 0.1% Cream) prn fungal rash for 7 Days BID PRN TOP RASH Last administered on 07/02/16 08:31; Start 07/01/16 at 11:30; Stop 07/08/16 at 11:29; Status DC CHRIS DUMONT MD Jul 08, 2016 13:44
[2016-07-08 14:30] VITALS: BP 124/64
[2016-07-08 21:00] VITALS: BP 132/63
[2016-07-08] MEDS: ROSUVASTATIN 10 MG TAB (CRESTOR) PO SCH (21:21)
--- NOTE | 2016-07-08 21:27 | IPN ---
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 He continues to receive rehab including occupational and physical therapy. He has been dialysis dependent due to acute renal failure. He reports that he is making progress with rehab. The patient denies any dyspnea or chest pain. His dizziness has improved. There is no nausea or vomiting and reports improving appetite. PHYSICAL EXAMINATION: Temperature 98.4 degrees Fahrenheit, heart rate 79 per minute and respiratory rate 18 per minute. Blood pressure 124/64 mmHg and oxygen saturation 98% on room air. Intake and output records from yesterday showed total intake 950 and output 2050 mL. Today again so far his intake is 1490 and output 2024. His head is atraumatic and neck is supple without jugular venous distention (JVD) or thyroid enlargement. Ears, nose and throat are unremarkable. Heart: Sounds regular. Lungs: Clear to auscultation. Abdomen: Soft and nontender. Extremities: Without cyanosis or clubbing. Today's labs show WBC count 5.3, hemoglobin 9.3, hematocrit 30.4. Sodium 135, potassium 4.5. BUN 42 and creatinine 4.2. PROBLEMS: 1. Acute renal failure. The patient is nonoliguric with improving urine output. However, his BUN and creatinine are still increasing. We decided to hold off dialysis today. We will reevaluate him tomorrow morning and then decide about dialysis. At this point, there is no emergent indication for dialysis today. 2. Anemia. His anemia is stable and we will continue with Aranesp and Venofer during dialysis. 3. Hyponatremia. This is very mild and does not need any intervention. It is likely to correct either with dialysis or spontaneously if his kidney function improves.
[2016-07-09 06:00] VITALS: BP 115/60
[2016-07-09] MEDS: CLINDAMYCIN 900 MG in APPROPRIATE DILUENT 1 EA IV SCH ×3 (06:30→22:12)
[2016-07-09 07:21] LABS: MEAN CORPUSCULAR VOLUME 86.7 fl (80.0-96.0); RED CELL DISTRIBUTION WIDTH 17.6 % (11.5-14.5); WHITE BLOOD COUNT 5.4 K/mm3 (4.0-10.0)
[2016-07-09 07:28] LABS: CALCIUM LEVEL 9.2 MG/DL (8.8-10.2); CREATININE FOR GFR 4.42 MG/DL (0.70-1.30); GLOMERULAR FILTRATION RATE 14.6 (>49); POTASSIUM SERUM 4.5 MEQ/L (3.5-5.1)
[2016-07-09] MEDS: HumaLOG INSULIN (NovoLOG) PER UNIT SC SCH ×3 (08:39→17:19)
[2016-07-09] MEDS: METHADONE 10 MG TAB (S0109) PO SCH ×3 (08:40→22:15)
[2016-07-09] MEDS: METHYLPHENIDATE 5 MG TAB PO SCH ×2 (08:41→11:55)
[2016-07-09] MEDS: METOPROLOL TART 50 MG TAB PO SCH ×2 (08:41→22:16)
[2016-07-09] MEDS: (RENVELA) SEVELAMER **CARBONate** 800 MG TAB PO SCH ×3 (08:41→17:19)
[2016-07-09] MEDS: PANTOPRAZOLE 40MG TAB (PROTONIX) PO SCH (08:42)
[2016-07-09] MEDS: LACTOBACILLUS ACIDOPHILUS CAP (BACID) PO SCH ×2 (08:42→22:16)
[2016-07-09] MEDS: risperiDONE 2 MG TAB PO SCH (08:42)
[2016-07-09] MEDS: ASPIRIN 81 MG ENTERIC TAB PO SCH (08:42)
--- NOTE | 2016-07-09 11:20 | IPN ---
DATE OF SERVICE: 07/09/2016 Geovany Diaz is seen this morning on his bedside. He is feeling better and reports that physical therapy is helping him and he is getting stronger. His appetite is also improving. He denies any dyspnea, chest pain, nausea or vomiting. He was not dialyzed yesterday and we had a plan to dialyze him this afternoon today. The meantime, his urine output has improved significantly. On physical examination, temperature 98.8 degrees Fahrenheit, heart rate 78 per minute and respiratory rate 18 per minute. Blood pressure 115/60 mmHg and oxygen saturation 96% on room air. Intake and output records from yesterday showed total intake 1730 and output 2475 mL. His neck is supple and without JVD or thyroid enlargement. Dialysis catheter is present in right internal jugular vein without any signs of infection. Head is atraumatic. Pupils equal and reactive to light and sclera is icteric. Heart sounds are regular and lungs clear to auscultation. Abdomen is soft and benign. Bowel sounds are normal. Extremities have no cyanosis or clubbing. He does have some chronic lower extremity edema. Today's labs show WBC count 5.4, hemoglobin 8.5 and hematocrit 28.2. Platelets 253. Sodium 134, potassium 4.5. BUN 49 and creatinine 4.42. Glucose 144 and calcium 9.2. PROBLEM: 1. Acute renal failure: The patient is nonoliguric with good urine output. He had only slight increase in his serum creatinine today and has no uremic symptoms. His electrolytes are stable. I am going to hold off on dialysis today and recheck his kidney function tomorrow. There is no emergent indication for dialysis today. Kidney function seems to be improving and we anticipate a decrease in serum creatinine in next 24 to 48 hours. 2. Anemia: At present his anemia is relatively stable. Should he come off dialysis then we will give him Aranesp dose and continue with oral iron. At present there is no indication for transfusion. His anemia is likely to improve when his kidney function improves. 3. Generalized weakness and deconditioning: The patient continues with rehab.
[2016-07-09] MEDS: ESCITALOPRAM OXALATE 10 MG TAB (LEXAPRO) PO SCH (11:54)
[2016-07-09 14:00] VITALS: BP 113/74
[2016-07-09] MEDS ORDERED: HYDROmorphone 2 MG TAB PO PRN (15:15)
--- NOTE | 2016-07-09 15:23 | IPNPDOC ---
Workforce Services Representative Progress Note DATE OF SERVICE: 07/09/2016 DATE OF ADMISSION: Jul 01, 2016 at 12:05 INPATIENT REHABILITATION ADMISSION DAY: #8 SUBJECTIVE: Patient is a 61-year-old white male with vasculitis caused abscess and bacteremia of group a Streptococcus. Patient having some pain this afternoon but otherwise is have fairly good pain control and is very excited about his ability to have transition to standing in the parallel bars he implied walking but PT reports that he stood 3 times and was able be on his feet which is a good step forward. Patient also requesting testosterone replacement however I do not think this is a good idea nor does the registered medical transcriptionist as they have liver and kidney effects as well as increased risk of DVTs when in use. Patient informed of 5 mg cut in methadone. In general, he does report his pain control and better and he is very excited about the improved tone and function in in therapy. ALLERGIES: See Below MEDICATIONS: Reviewed, see below. OBJECTIVE: VITAL SIGNS: Please see below. PHYSICAL EXAMINATION: GENERAL: Well-nourished well-developed middle-aged white male with some decreased musculature of the upper and lower extremities but healing of vascular causes lesions of both legs and improving color of the legs HEENT: Normocephalic/atraumatic still with head tilt due to neck tone. CARDIOVASCULAR: Regular rate and rhythm with normal S1 and S2 LUNGS: All lin clear to auscultation. ABDOMEN: Bowel sounds present in all quadrants. NEUROLOGICAL: Alert and oriented 4 speech is clear coherent and appropriate patient with a little bit of anxiousness but in general pleasant and cooperative. Tone improving in the right upper and lower extremity and patient progressing in transfers and ADLs. SKIN: As noted above this is improving patient is concerned that he needs a wound clinic consultation. LABORATORY DATA: Reviewed. Please see below. MICROBIOLOGY: Please see below. IMAGING: No new. ASSESSMENT AND PLAN: 1. Rehabilitation of debility secondary to vasculitis caused infection: Patient making significant progress and exceeding his premorbid status of the last 2 years but this will increase his overall function and safety at home and the safety of his who assist him. Patient reviewed in team and anticipate his discharge to home on approximately July 16. 2. Anxiety depression: Patient restarting his Lexapro. 3. Pain management: We'll renew the dye lauded for breakthrough pain but decrease the methadone to 40 mg every morning and 35 at midday and at bedtime. We'll continue with tramadol. But part of the improvement has also the decrease in tone as last home yields less pain in the shoulder and thigh. I do feel patient would be a good candidate for further Botox injections in the right thigh and hip region. TIME SPENT: Chart Review, examination and documentation greater than 35 minutes. Allergies Coded Allergies: Sulfamethoxazole w/Trimethoprim (Verified Allergy, Unknown, 07/01/16) Vital Signs Vital Signs Date Time Temp Pulse Resp B/P Pulse Ox O2 Delivery O2 Flow Rate FiO2 07/09/16 14:00 98.6 89 18 113/74 96 Room Air Laboratory Data CBC/BMP Laboratory Tests 07/09/16 06:54 Calcium Level 9.2, Red Blood Count 3.26 L, Mean Corpuscular Volume 86.7, Mean Corpuscular Hemoglobin 26.0 L, Mean Corpuscular Hemoglobin Concent 30.0 L, Red Cell Distribution Width 17.6 H Labs 24H Laboratory Tests 2 07/08/16 16:33: Bedside Glucose (Misc Panel) 128H 07/08/16 19:59: Bedside Glucose (Misc Panel) 182H 07/09/16 06:54: Anion Gap 7L, Blood Urea Nitrogen 49H, Creatinine 4.42H, Sodium Level 134L, Potassium Level 4.5, Chloride Level 99, Carbon Dioxide Level 28, Calcium Level 9.2, Glomerular Filtration Rate 14.6L 07/09/16 11:29: Bedside Glucose (Misc Panel) 149H Microbiology Microbiology 07/01/16 Urine Culture - Final, Complete Current Medications Current Medications Current Medications Acetaminophen (Tylenol Tab) 650 mg Q6HP PRN PO PAIN; Start 07/01/16 at 11:30; Stop 07/31/16 at 11:29 Aspirin (Ecotrin) 81 mg DAILY PO Last administered on 07/09/16 08:42; Start at 09:00; Stop 08/01/16 at 08:59 Calcium Carbonate (Tums) 1,000 mg Q4HP PRN PO HEARTBURN; Start 07/01/16 at 11: 30; Stop 07/31/16 at 11:29 Clindamycin Phosphate/IV Miscellaneous Supplies (Cleocin) 50 ml @ 50 mls/hr Q8H IV Last administered on 07/09/16 13:54; Start 07/01/16 at 14:00; Stop at 13:59 Darbepoetin Pbalo (Aranesp (Dialysis Use)) 200 mcg HD IV ; Start 07/03/16 at 08: 00; Stop 08/02/16 at 07:59 Dextrose (Dextrose 50%) 25 ml ASDIRECTED PRN IV SEE LABEL COMMENTS; Start 07/01 at 13:45; Stop 07/31/16 at 13:44 Docusate Sodium (Colace) 100 mg Q12HP PRN PO CONSTIPATION; Start 07/01/16 at 11 :30; Stop 07/31/16 at 11:29 Escitalopram Oxalate (Lexapro) 10 mg DAILY PO Last administered on 07/09/16 11 :54; Start 07/09/16 at 09:00; Stop 08/08/16 at 08:59 Glucagon (Glucagon) 1 mg ASDIRECTED PRN SC SEE LABEL COMMENTS; Start 07/01/16 at 13:45; Stop 07/31/16 at 13:44 Glucose (Glucose) 16 GM ASDIRECTED PRN PO SEE LABEL COMMENTS; Start 07/01/16 at 13:45; Stop 07/31/16 at 13:44 Home Med (Med Rec Complete!) ASDIRECTED XX ; Start 07/01/16 at 14:15; Stop 03/07 at 14:22; Status DC Hydrocortisone (Hydrocortisone 1% Cream) Apply a small herberth... QIDP PRN TOP anal burning and itching; Start 07/08/16 at 11:15; Stop 08/07/16 at 11:14 Hydromorphone HCl (Dilaudid) 2 mg Q4HP PRN PO MODERATE/SEVERE PAIN (PS 5-10) Last administered on 07/05/16 15:24; Start 07/01/16 at 12:15; Stop 07/08/16 at 09:00; Status DC Hydromorphone HCl (Dilaudid) 2 mg Q6HP PRN PO MODERATE/SEVERE PAIN (PS 5-10); Start 07/09/16 at 15:15; Stop 07/17/16 at 10:00; Status UNV Insulin Human Lispro (HumaLOG INSULIN) SEE PROTOCOL TABLE AC SC Last administered on 07/09/16 11:54; Start 07/01/16 at 17:30; Stop 07/31/16 at 17:29 Iron (Venofer) 100 mg HD IV ; Start 07/02/16 at 09:45; Stop 08/05/16 at 09:46 Lactobacillus Acidophilus (Bacid) 1 ea BID PO Last administered on 07/09/16 08 :42; Start 07/01/16 at 21:00; Stop 07/31/16 at 20:59 Methadone HCl (Dolophine) 35 mg DAILY@14 PO Last administered on 07/08/16 15: 10; Start 07/03/16 at 14:00; Stop 07/09/16 at 09:13; Status DC Methadone HCl (Dolophine) 35 mg DAILY@14,22 PO Last administered on 07/09/16 13:50; Start 07/09/16 at 14:00; Stop 07/16/16 at 13:59 Methadone HCl (Dolophine) 35 mg QHS PO ; Start 07/09/16 at 21:00; Stop 07/17/16 at 22:30; Status UNV Methadone HCl (Dolophine) 40 mg DAILY@08 PO ; Start 07/10/16 at 08:00; Stop at 07:59 Methadone HCl (Dolophine) 40 mg DAILY@,22 PO Last administered on 07/09/16 08:40; Start 07/03/16 at 22:00; Stop 07/09/16 at 09:13; Status DC Methadone HCl (Dolophine) 40 mg TID PO Last administered on 07/03/16 08:10; Start 07/01/16 at 16:00; Stop 07/03/16 at 10:00; Status DC Methylphenidate HCl (Ritalin) 20 mg BID@08,12 PO Last administered on 08:41; Start 07/03/16 at 08:00; Stop 07/09/16 at 09:14; Status DC Methylphenidate HCl (Ritalin) 20 mg BID@08,12 PO Last administered on 11:55; Start 07/09/16 at 12:00; Stop 07/17/16 at 22:30 Metoprolol Tartrate (Lopressor) 50 mg BID PO Last administered on 07/09/16 08: 41; Start 07/01/16 at 21:00; Stop 07/31/16 at 20:59 Mineral Oil/White Petrolatum (Eucerin) TO DRY AREAS ON RT L... BID PRN TOP Dry skin; Start 07/01/16 at 11:30; Stop 07/31/16 at 11:29 Miscellaneous (Unresolved Non-Formulary Med Order) SEE LABEL COMMENTS UNRESOLVED XX ; Start 07/01/16 at 00:01; Stop 07/02/16 at 19:02; Status DC Miscellaneous (Unresolved Patient Own Med Order) SEE LABEL COMMENTS UNRESOLVED XX ; Start 07/08/16 at 00:01; Stop 08/07/16 at 00:00 Non-Formulary Medication Liquacel Ligquid Prot... DAILY PO ; Start 07/02/16 at 09:00; Stop 07/02/16 at 09:51; Status DC Non-Formulary Medication Procrit 10,000 Unitis... 2XW IV ; Start 07/01/16 at 12: 15; Stop 07/02/16 at 09:50; Status DC Nystatin (Mycostatin Powder, Nystop) BIDP PRN TOP RASH; Start 07/01/16 at 11: 30; Stop 07/31/16 at 11:29 Pantoprazole Sodium (Protonix) 40 mg DAILY PO Last administered on 07/09/16 08 :42; Start 07/02/16 at 09:00; Stop 08/01/16 at 08:59 Patient Own Medication (Patient'S Own Med) Diclofenac 1% Gel: Appl... QIDP PRN TOP PAIN; Start 07/08/16 at 10:45; Stop 08/07/16 at 10:44; Status UNV Risperidone (RisperDAL) 2 mg DAILY PO Last administered on 07/09/16 08:42; Start 07/02/16 at 09:00; Stop 08/01/16 at 08:59 Rosuvastatin Calcium (Crestor) 20 mg QHS PO Last administered on 07/08/16 21: 21; Start 07/08/16 at 21:00; Stop 08/07/16 at 20:59 Senna (Senokot) 2 tab QHSP PRN PO CONSTIPATION; Start 07/01/16 at 11:30; Stop 07/31/16 at 11:29 Sevelamer Carbonate (Renvela) 800 mg WM PO Last administered on 07/09/16 11:54 ; Start 07/01/16 at 12:30; Stop 07/31/16 at 12:29 Triamcinolone Acetonide (Kenalog 0.1% Cream) prn fungal rash for 7 Days BID PRN TOP RASH Last administered on 07/02/16 08:31; Start 07/01/16 at 11:30; Stop 07/08/16 at 11:29; Status DC CHRIS DUMONT MD Jul 09, 2016 15:22
--- NOTE | 2016-07-09 15:57 | IPNPDOC ---
Subjective Date Seen The patient was seen on 07/09/16. Subjective Chief Complaint/HPI The patient is a 61-year-old male admitted with a reason for visit of Severe Sepsis. Events since last encounter Pt doing well with therapy. No new complaints. Objective Physical Examination General Exam: Positive: Alert Eye Exam: Positive: PERRLA ENT Exam: Positive: Atraumatic, Mucous membr. moist/pink, Pharynx Normal Chest Exam: Positive: Clear to auscultation, Normal air movement Heart Exam: Positive: Normal S1, Normal S2, Rate Normal, Regular Rhythm, Negative: Murmurs, Rubs Extremity Exam: Positive: Other ( ), Negative: Edema, Swelling, Tenderness Skin Exam: Positive: Other skin issue (chronic skin changes LEs, skin scaling) Assessment /Plan Problems (1) Cellulitis of right leg Status: Chronic Problem Text: * GAS Bacteremia * IV Clinda as per D/C recommendations x 14 days * Afebrile * No leukocytosis (2) MARCEL (obstructive sleep apnea) Status: Chronic Problem Text: * BIPAP machine pending from home * Pt states it was not functioning appropriately/fitting appropriately * Pulmonary was consulted for further fitting and management. (3) Immunocompromised Status: Chronic Problem Text: * Outpatient medications are on hold. * Patient follows with a processing rep in [place]. (4) ESRD (end stage renal disease) Status: Chronic Problem Text: * Hemodialysis as per nephrology (5) Chronic pain Status: Chronic Problem Text: * Pain management as per attending * Methadone weaning as per attending. * Monitor for lethargy and respiratory status. (6) Anemia in CKD (chronic kidney disease) Status: Chronic Problem Text: * Aranesp as per nephrology * Iron supplement * monitor (7) CHF (congestive heart failure) Status: Chronic Problem Text: * No signs of decompensation at this time. * Nephrology. 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 Problem Text: * CC diet * Sliding scale insulin Plan/VTE VTE Prophylaxis Ordered?: No (as per attending) VS, I&O, 24H, Fishbone Vital Signs/I&O Vital Signs Date Time Temp Pulse Resp B/P Pulse Ox O2 Delivery O2 Flow Rate FiO2 07/09/16 14:00 98.6 89 18 113/74 96 Room Air I&O- Last 24 Hours up to 6 AM 07/09/16 06:00 Intake Total 1730 ml Output Total 1875 ml Balance -145 ml Laboratory Data 24H LABS Laboratory Tests 2 07/08/16 16:33: Bedside Glucose (Misc Panel) 128H 07/08/16 19:59: Bedside Glucose (Misc Panel) 182H 07/09/16 06:54: Anion Gap 7L, Blood Urea Nitrogen 49H, Creatinine 4.42H, Sodium Level 134L, Potassium Level 4.5, Chloride Level 99, Carbon Dioxide Level 28, Calcium Level 9.2, Glomerular Filtration Rate 14.6L 07/09/16 11:29: Bedside Glucose (Misc Panel) 149H CBC/BMP Laboratory Tests 07/09/16 06:54 Calcium Level 9.2, Red Blood Count 3.26 L, Mean Corpuscular Volume 86.7, Mean Corpuscular Hemoglobin 26.0 L, Mean Corpuscular Hemoglobin Concent 30.0 L, Red Cell Distribution Width 17.6 H Microbiology Microbiology 07/01/16 Urine Culture - Final, Complete Kaylen Smith Jul 09, 2016 15:57
[2016-07-09 20:00] VITALS: BP 131/70
[2016-07-09] MEDS ORDERED: METHADONE 10 MG TAB (S0109) PO SCH (21:00)
[2016-07-09] MEDS: ROSUVASTATIN 10 MG TAB (CRESTOR) PO SCH (22:15)
[2016-07-10] MEDS: CLINDAMYCIN 900 MG in APPROPRIATE DILUENT 1 EA IV SCH ×3 (05:19→21:56)
[2016-07-10 06:00] VITALS: BP 127/66
[2016-07-10 07:06] LABS: MEAN CORPUSCULAR HEMOGLOBIN 26.6 pg (27.0-33.0); MEAN CORPUSCULAR HGB CONC 31.1 g/dl (32.0-36.5); MEAN CORPUSCULAR VOLUME 85.6 fl (80.0-96.0); RED CELL DISTRIBUTION WIDTH 17.4 % (11.5-14.5); WHITE BLOOD COUNT 4.8 K/mm3 (4.0-10.0)
[2016-07-10 07:22] LABS: CALCIUM LEVEL 9.1 MG/DL (8.8-10.2); CREATININE FOR GFR 4.54 MG/DL (0.70-1.30); GLOMERULAR FILTRATION RATE 14.2 (>49); POTASSIUM SERUM 4.7 MEQ/L (3.5-5.1)
[2016-07-10] MEDS: HumaLOG INSULIN (NovoLOG) PER UNIT SC SCH ×3 (07:30→17:17)
[2016-07-10] MEDS: (RENVELA) SEVELAMER **CARBONate** 800 MG TAB PO SCH ×4 (08:00→17:16)
[2016-07-10] MEDS: LACTOBACILLUS ACIDOPHILUS CAP (BACID) PO SCH ×2 (09:09→20:58)
[2016-07-10] MEDS: ESCITALOPRAM OXALATE 10 MG TAB (LEXAPRO) PO SCH (09:10)
[2016-07-10] MEDS: risperiDONE 2 MG TAB PO SCH (09:10)
[2016-07-10] MEDS: ASPIRIN 81 MG ENTERIC TAB PO SCH (09:10)
[2016-07-10] MEDS: PANTOPRAZOLE 40MG TAB (PROTONIX) PO SCH (09:10)
[2016-07-10] MEDS: METHADONE 10 MG TAB (S0109) PO SCH ×3 (09:11→21:57)
[2016-07-10] MEDS: METOPROLOL TART 50 MG TAB PO SCH ×2 (09:12→20:58)
[2016-07-10] MEDS: METHYLPHENIDATE 5 MG TAB PO SCH ×2 (09:12→12:34)
[2016-07-10] MEDS ORDERED: VOLTAREN GEL (PATIENT'S OWN MED) TOP PRN (10:45)
--- NOTE | 2016-07-10 12:23 | IPNPDOC ---
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 Patient pain continuing to be under better control in general in spite of decrease in methadone now at 110 mg per day in divided doses versus initial 120 milligrams per day. Patient without fever or chills but does report some nausea this morning that is clearing. ALLERGIES: See Below MEDICATIONS: Reviewed, see below. OBJECTIVE: VITAL SIGNS: Please see below. PHYSICAL EXAMINATION: GENERAL: Well-developed middle-aged white male with some decreased musculature distally on the upper and lower extremities. Patient no acute distress. Patient expresses some anxiousness about not being able do car transfers by is anticipated discharge on July 16. HEENT: Normocephalic/atraumatic with head tilt to to neck tone. CARDIOVASCULAR: Regular rate and rhythm with normal S1 and S2. LUNGS: All lin clear to auscultation. ABDOMEN: Bowel sounds present in all quadrant and abdomen is nontender. NEUROLOGICAL: Patient is alert and oriented 4 speech is clear coherent and appropriate with still frequent Tourette syndrome in 2 injections of speech including profanities. Patient is pleasant and cooperative with the team and following directions of working well. Right by movement somewhat more comfortable still notable weakness throughout. SKIN: Legs continue improve. LABORATORY DATA: Reviewed. Please see below. MICROBIOLOGY: Please see below. IMAGING: No new imaging. DVT prophylaxis ordered?: No change. ASSESSMENT AND PLAN: 1. Rehabilitation debility secondary to vasculitis caused infection: Patient doing well and with improvement in tone control in the right upper and lower extremity is making gains in his skills for transfers and ADLs. He does need further reassurance and should continue to make progress towards easier car transfers and other skills which will help his manage him at home. 2. Tourette syndrome: I continue to feel this is part of his tone problem, I do think the treatments in therapy are helping manage the tone and allow more functional strength but the Tourette's and the tone clearly are aggravated by anxiety on the patient's part. Hopefully 3 is starting the Lexapro will have a positive effect on this. 3. Leg abscess: The area does continue improve the patient has trouble perceiving this. 4. Acute on chronic renal disease: Patient did not require dialysis yesterday or today and may not need further dialysis. Nephrology to continue to follow and make decisions regarding management including need for any further dialysis TIME SPENT: Chart Review, examination and documentation greater than 25 minutes. Allergies Coded Allergies: Sulfamethoxazole w/Trimethoprim (Verified Allergy, Unknown, 07/01/16) Vital Signs Vital Signs Date Time Temp Pulse Resp B/P Pulse Ox O2 Delivery O2 Flow Rate FiO2 07/10/16 09:12 80 127/66 07/10/16 09:11 20 Room Air 07/10/16 06:00 97.9 97 Laboratory Data CBC/BMP Laboratory Tests 07/10/16 06:34 Calcium Level 9.1, Red Blood Count 3.20 L, Mean Corpuscular Volume 85.6, Mean Corpuscular Hemoglobin 26.6 L, Mean Corpuscular Hemoglobin Concent 31.1 L, Red Cell Distribution Width 17.4 H Labs 24H Laboratory Tests 2 07/09/16 16:31: Bedside Glucose (Misc Panel) 124H 07/09/16 20:30: Bedside Glucose (Misc Panel) 186H 07/10/16 06:34: Anion Gap 10, Blood Urea Nitrogen 57H, Creatinine 4.54H, Sodium Level 135L, Potassium Level 4.7, Chloride Level 97L, Carbon Dioxide Level 28, Calcium Level 9.1, Glomerular Filtration Rate 14.2L Microbiology Microbiology 07/01/16 Urine Culture - Final, Complete Current Medications Current Medications Current Medications Acetaminophen (Tylenol Tab) 650 mg Q6HP PRN PO PAIN Last administered on 15:15; Start 07/01/16 at 11:30; Stop 07/31/16 at 11:29 Aspirin (Ecotrin) 81 mg DAILY PO Last administered on 07/10/16 09:10; Start at 09:00; Stop 08/01/16 at 08:59 Calcium Carbonate (Tums) 1,000 mg Q4HP PRN PO HEARTBURN; Start 07/01/16 at 11: 30; Stop 07/31/16 at 11:29 Clindamycin Phosphate/IV Miscellaneous Supplies (Cleocin) 50 ml @ 50 mls/hr Q8H IV Last administered on 07/10/16 05:19; Start 07/01/16 at 14:00; Stop at 13:59 Darbepoetin Pablo (Aranesp (Dialysis Use)) 200 mcg HD IV ; Start 07/03/16 at 08: 00; Stop 08/02/16 at 07:59 Dextrose (Dextrose 50%) 25 ml ASDIRECTED PRN IV SEE LABEL COMMENTS; Start 07/01 at 13:45; Stop 07/31/16 at 13:44 Docusate Sodium (Colace) 100 mg Q12HP PRN PO CONSTIPATION; Start 07/01/16 at 11 :30; Stop 07/31/16 at 11:29 Escitalopram Oxalate (Lexapro) 10 mg DAILY PO Last administered on 07/10/16 09 :10; Start 07/09/16 at 09:00; Stop 08/08/16 at 08:59 Glucagon (Glucagon) 1 mg ASDIRECTED PRN SC SEE LABEL COMMENTS; Start 07/01/16 at 13:45; Stop 07/31/16 at 13:44 Glucose (Glucose) 16 GM ASDIRECTED PRN PO SEE LABEL COMMENTS; Start 07/01/16 at 13:45; Stop 07/31/16 at 13:44 Home Med (Med Rec Complete!) ASDIRECTED XX ; Start 07/01/16 at 14:15; Stop 03/07 at 14:22; Status DC Hydrocortisone (Hydrocortisone 1% Cream) Apply a small herberth... QIDP PRN TOP anal burning and itching; Start 07/08/16 at 11:15; Stop 08/07/16 at 11:14 Hydromorphone HCl (Dilaudid) 2 mg Q4HP PRN PO MODERATE/SEVERE PAIN (PS 5-10) Last administered on 07/05/16 15:24; Start 07/01/16 at 12:15; Stop 07/08/16 at 09:00; Status DC Hydromorphone HCl (Dilaudid) 2 mg Q6HP PRN PO MODERATE/SEVERE PAIN (PS 5-10); Start 07/09/16 at 15:15; Stop 07/17/16 at 10:00 Insulin Human Lispro (HumaLOG INSULIN) SEE PROTOCOL TABLE AC SC Last administered on 07/09/16 17:19; Start 07/01/16 at 17:30; Stop 07/31/16 at 17:29 Iron (Venofer) 100 mg HD IV ; Start 07/02/16 at 09:45; Stop 08/05/16 at 09:46 Lactobacillus Acidophilus (Bacid) 1 ea BID PO Last administered on 07/10/16 09 :09; Start 07/01/16 at 21:00; Stop 07/31/16 at 20:59 Methadone HCl (Dolophine) 35 mg DAILY@14 PO Last administered on 07/08/16 15: 10; Start 07/03/16 at 14:00; Stop 07/09/16 at 09:13; Status DC Methadone HCl (Dolophine) 35 mg DAILY@,22 PO Last administered on 07/09/16 22:15; Start 07/09/16 at 14:00; Stop 07/16/16 at 13:59 Methadone HCl (Dolophine) 35 mg QHS PO ; Start 07/09/16 at 21:00; Stop 07/17/16 at 22:30; Status UNV Methadone HCl (Dolophine) 40 mg DAILY@08 PO Last administered on 07/10/16 09: 11; Start 07/10/16 at 08:00; Stop 07/17/16 at 07:59 Methadone HCl (Dolophine) 40 mg DAILY@,22 PO Last administered on 07/09/16 08:40; Start 07/03/16 at 22:00; Stop 07/09/16 at 09:13; Status DC Methadone HCl (Dolophine) 40 mg TID PO Last administered on 07/03/16 08:10; Start 07/01/16 at 16:00; Stop 07/03/16 at 10:00; Status DC Methylphenidate HCl (Ritalin) 20 mg BID@08,12 PO Last administered on 08:41; Start 07/03/16 at 08:00; Stop 07/09/16 at 09:14; Status DC Methylphenidate HCl (Ritalin) 20 mg BID@08,12 PO Last administered on 09:12; Start 07/09/16 at 12:00; Stop 07/17/16 at 22:30 Metoprolol Tartrate (Lopressor) 50 mg BID PO Last administered on 07/10/16 09: 12; Start 07/01/16 at 21:00; Stop 07/31/16 at 20:59 Mineral Oil/White Petrolatum (Eucerin) TO DRY AREAS ON RT L... BID PRN TOP Dry skin; Start 07/01/16 at 11:30; Stop 07/31/16 at 11:29 Miscellaneous (Unresolved Non-Formulary Med Order) SEE LABEL COMMENTS UNRESOLVED XX ; Start 07/01/16 at 00:01; Stop 07/02/16 at 19:02; Status DC Miscellaneous (Unresolved Patient Own Med Order) SEE LABEL COMMENTS UNRESOLVED XX ; Start 07/08/16 at 00:01; Stop 08/07/16 at 00:00 Non-Formulary Medication Liquacel Ligquid Prot... DAILY PO ; Start 07/02/16 at 09:00; Stop 07/02/16 at 09:51; Status DC Non-Formulary Medication Procrit 10,000 Unitis... 2XW IV ; Start 07/01/16 at 12: 15; Stop 07/02/16 at 09:50; Status DC Nystatin (Mycostatin Powder, Nystop) BIDP PRN TOP RASH; Start 07/01/16 at 11: 30; Stop 07/31/16 at 11:29 Pantoprazole Sodium (Protonix) 40 mg DAILY PO Last administered on 07/10/16 09 :10; Start 07/02/16 at 09:00; Stop 08/01/16 at 08:59 Patient Own Medication (Patient'S Own Med) Diclofenac 1% Gel: Appl... QIDP PRN TOP PAIN; Start 07/08/16 at 10:45; Stop 08/07/16 at 10:44; Status UNV Risperidone (RisperDAL) 2 mg DAILY PO Last administered on 07/10/16 09:10; Start 07/02/16 at 09:00; Stop 08/01/16 at 08:59 Rosuvastatin Calcium (Crestor) 20 mg QHS PO Last administered on 07/09/16 22: 15; Start 07/08/16 at 21:00; Stop 08/07/16 at 20:59 Senna (Senokot) 2 tab QHSP PRN PO CONSTIPATION; Start 07/01/16 at 11:30; Stop 07/31/16 at 11:29 Sevelamer Carbonate (Renvela) 800 mg WM PO Last administered on 07/09/16 17:19 ; Start 07/01/16 at 12:30; Stop 07/31/16 at 12:29 Triamcinolone Acetonide (Kenalog 0.1% Cream) prn fungal rash for 7 Days BID PRN TOP RASH Last administered on 07/02/16 08:31; Start 07/01/16 at 11:30; Stop 07/08/16 at 11:29; Status DC CHRIS DUMONT MD Jul 10, 2016 12:22
--- NOTE | 2016-07-10 12:50 | IPN ---
DATE: 07/10/2016 Dr. 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 He reports that he was nauseated earlier and is still in the bed. He denies any vomiting or diarrhea. He has no dyspnea or chest pain. He had acute renal failure secondary to severe sepsis and developed generalized deconditioning and weakness. He is currently undergoing acute rehabilitation. His last dialysis was done about 3 days ago and has increasing urine output so we have held his dialysis treatment hoping that his kidney function is going to improve. On physical examination, his temperature is 97.9 degrees Fahrenheit, heart rate 80 per minute and respiratory rate 18 per minute. Blood pressure 127/66 mmHg and oxygen saturation 97% on room air. Intake and output records from yesterday showed total intake 2090 and output 2925 with a negative balance of 835. His head is atraumatic. Neck veins are not distended. Neck is supple and without thyroid enlargement. Heart sounds regular and lungs clear to auscultation. Abdomen is soft and benign. Extremities with trace of leg edema but no cyanosis or clubbing. Today's labs show WBC count 4.8, hemoglobin 8.5 and hematocrit 27.4. Platelets 237. Sodium 135 and potassium 4.7. BUN 57 and creatinine 4.54. Glucose was 73 and calcium 9.1. PROBLEMS: 1. Acute renal failure: The patient is nonoliguric and has a negative fluid balance which is most likely reason why his creatinine increased a bit. I have encouraged him to increase his oral fluid intake in order to manage his urine output. At this point, there is no emergent need for dialysis and we will continue to monitor without dialysis. 2. Hyponatremia: This is mild and related to acute renal failure. No intervention is indicated. We will monitor his electrolytes with a renal profile tomorrow again. 3. Anemia: The patient has been receiving Aranesp during hemodialysis. He has not been dialyzed for last few days. We will give him Aranesp 300 mcg subcutaneously tomorrow. His CBC will also be checked tomorrow. 4. Hypertension: Blood pressure is very well controlled and he will continue with current antihypertensive medications.
[2016-07-10 14:35] VITALS: BP 140/68
[2016-07-10] MEDS: ROSUVASTATIN 10 MG TAB (CRESTOR) PO SCH (20:59)
[2016-07-10 22:00] VITALS: BP 115/56
[2016-07-11] MEDS: CLINDAMYCIN 900 MG in APPROPRIATE DILUENT 1 EA IV SCH ×3 (05:26→21:43)
[2016-07-11 06:00] VITALS: BP 110/60
[2016-07-11 06:15] LABS: MEAN CORPUSCULAR HEMOGLOBIN 26.8 pg (27.0-33.0); MEAN CORPUSCULAR HGB CONC 31.2 g/dl (32.0-36.5); MEAN CORPUSCULAR VOLUME 85.9 fl (80.0-96.0); RED CELL DISTRIBUTION WIDTH 17.3 % (11.5-14.5); WHITE BLOOD COUNT 4.9 K/mm3 (4.0-10.0)
[2016-07-11 06:43] LABS: CALCIUM LEVEL 8.7 MG/DL (8.8-10.2); CREATININE FOR GFR 4.53 MG/DL (0.70-1.30); GLOMERULAR FILTRATION RATE 14.2 (>49); POTASSIUM SERUM 4.5 MEQ/L (3.5-5.1)
[2016-07-11] MEDS: PANTOPRAZOLE 40MG TAB (PROTONIX) PO SCH (08:18)
[2016-07-11] MEDS: ASPIRIN 81 MG ENTERIC TAB PO SCH (08:18)
[2016-07-11] MEDS: risperiDONE 2 MG TAB PO SCH (08:18)
[2016-07-11] MEDS: (RENVELA) SEVELAMER **CARBONate** 800 MG TAB PO SCH (08:18)
[2016-07-11] MEDS: METOPROLOL TART 50 MG TAB PO SCH ×2 (08:18→21:43)
[2016-07-11] MEDS: LACTOBACILLUS ACIDOPHILUS CAP (BACID) PO SCH ×2 (08:18→21:43)
[2016-07-11] MEDS: HumaLOG INSULIN (NovoLOG) PER UNIT SC SCH ×3 (08:18→17:52)
[2016-07-11] MEDS: ESCITALOPRAM OXALATE 10 MG TAB (LEXAPRO) PO SCH (08:19)
[2016-07-11] MEDS: METHADONE 10 MG TAB (S0109) PO SCH ×3 (08:19→21:42)
[2016-07-11] MEDS: METHYLPHENIDATE 5 MG TAB PO SCH ×2 (08:20→12:29)
[2016-07-11] MEDS ORDERED: DARBEPOETIN 100 MCG/0.5 ML *NON-DIALYSIS* SYRINGE (J0881) SQ SCH (09:00)
[2016-07-11 10:33] LABS: PHOSPHORUS LEVEL 5.6 MG/DL (2.5-4.9)
--- NOTE | 2016-07-11 12:05 | IPN ---
DATE OF VISIT: 07/11/2016 Mr. Diaz is seen this morning on his bedside. He is currently doing his physical therapy in the bed. He is feeling well and denies any nausea, vomiting, dyspnea or chest pain. His appetite is good and he is eating well. On physical exam, temperature 97.9 degrees Fahrenheit, heart rate 78 per minute and respiratory rate 20 per minute. Blood pressure 110/60 mmHg and oxygen saturation 98% on room air. His physical exam is essentially unremarkable and unchanged. He has no pulmonary rales and lungs are clear. His heart sounds are regular. Neck is supple and without jugular venous distention (JVD) or thyroid enlargement. Dialysis catheter is intact in right internal jugular vein. Head atraumatic. Abdomen soft and benign. Today's labs showed WBC count 4.9, hemoglobin 8.4 and hematocrit 26.8. Platelets 209. Sodium 132 and potassium 4.5. BUN 58 and creatinine 4.53. Calcium 8.7 and phosphorus 5.6. PROBLEMS: 1. Acute renal failure. Kidney function has started to improve. He has no uremic symptoms and good urine output. Yesterday he had about 2.9 liters urine output with negative balance of 1165 mL. The patient is being encouraged and advised to increase his oral fluid intake. I am not going to put him on IV fluid as his oral intake is adequate. 2. Hyponatremia. Mild hyponatremia is related to acute renal failure. It is likely to resolve as his kidney function is improving. No intervention is indicated. 3. Hyperphosphatemia. This is mild and likely to improve further as his kidney function is improving. The patient does not wish to take her Renvela anymore which is being stopped. 4. Anemia. The patient has been receiving Aranesp once a week in hemodialysis. He will be given Aranesp 200 mcg today as he is not receiving dialysis anymore.
[2016-07-11 14:00] VITALS: BP 114/56
[2016-07-11 20:00] VITALS: BP 123/65
[2016-07-11] MEDS: ROSUVASTATIN 10 MG TAB (CRESTOR) PO SCH (21:43)
[2016-07-12] MEDS: CLINDAMYCIN 900 MG in APPROPRIATE DILUENT 1 EA IV SCH ×3 (05:42→22:02)
[2016-07-12 06:00] VITALS: BP 106/55
[2016-07-12 06:29] LABS: MEAN CORPUSCULAR HEMOGLOBIN 27.1 pg (27.0-33.0); MEAN CORPUSCULAR HGB CONC 31.5 g/dl (32.0-36.5); RED CELL DISTRIBUTION WIDTH 17.2 % (11.5-14.5); WHITE BLOOD COUNT 4.3 K/mm3 (4.0-10.0)
[2016-07-12 06:50] LABS: CALCIUM LEVEL 8.9 MG/DL (8.8-10.2); CREATININE FOR GFR 4.58 MG/DL (0.70-1.30); POTASSIUM SERUM 4.5 MEQ/L (3.5-5.1)
[2016-07-12] MEDS: HumaLOG INSULIN (NovoLOG) PER UNIT SC SCH ×3 (08:41→17:16)
[2016-07-12] MEDS: PANTOPRAZOLE 40MG TAB (PROTONIX) PO SCH (08:42)
[2016-07-12] MEDS: ESCITALOPRAM OXALATE 10 MG TAB (LEXAPRO) PO SCH (08:42)
[2016-07-12] MEDS: ASPIRIN 81 MG ENTERIC TAB PO SCH (08:42)
[2016-07-12] MEDS: LACTOBACILLUS ACIDOPHILUS CAP (BACID) PO SCH ×2 (08:42→22:01)
[2016-07-12] MEDS: METOPROLOL TART 50 MG TAB PO SCH ×2 (08:43→22:01)
[2016-07-12] MEDS: risperiDONE 2 MG TAB PO SCH (08:43)
[2016-07-12] MEDS: METHYLPHENIDATE 5 MG TAB PO SCH ×2 (08:44→12:01)
[2016-07-12] MEDS: METHADONE 10 MG TAB (S0109) PO SCH ×3 (08:44→22:00)
[2016-07-12 14:00] VITALS: BP 101/52
[2016-07-12 20:00] VITALS: BP 127/61
--- NOTE | 2016-07-12 21:40 | IPN ---
DATE: 07/12/2016 Mr. Neves is seen this afternoon on his bedside. He is still not feeling too strong. He continues with his physical and occupational therapy. His appetite is not too good today as he was nauseated again. He denies any dyspnea or chest pain. There is no vomiting or diarrhea reported. There is no fever or chills. PHYSICAL EXAMINATION: Temperature 99 degrees Fahrenheit, heart rate 81 per minute and respiratory rate 18 per minute. Blood pressure 101/52 mmHg and oxygen saturation 97% on room air. Head is atraumatic. Nose and throat are unremarkable. Pupils equal and reactive to light and sclerae is anicteric. Dialysis catheter is intact in right internal jugular vein without any signs of infection. Heart sounds are regular and lungs clear to auscultation. Abdomen soft and nontender and without a palpable organomegaly. Bowel sounds are normal. Extremities have no cyanosis or clubbing. Skin has no rash or ulcers. Neurologically he is awake and alert. He is oriented times three. His intake and output records from yesterday show a negative fluid balance of 120 mL while day before yesterday he was negative by 1165 mL. For last several days he has been consistently in negative fluid balance. Today's labs show WBC count 4.3, hemoglobin 8.9 and hematocrit 28.3. Platelets 208. Sodium 134 and potassium 4.5. BUN 60 and creatinine 4.58. Glucose 198 and calcium 8.9. PROBLEMS: 1. Acute renal failure. The patient is non oliguric and without any significant change in kidney function over last 48 hours. He has not been dialyzed for several days. We anticipate decrease in his serum creatinine. However, he has been in negative fluid balance which is most likely preventing any decrease in the serum creatinine. I have encouraged him once again to increase his oral intake. His renal function will be checked again tomorrow morning. 2. Hyponatremia. Slight improvement in sodium level is noticed which is encouraging. We anticipate further improvement as his kidney function improves. No intervention is indicated. 3. Anemia. His anemia is slightly improved. He receives Aranesp now once a week while he is not on dialysis. We will continue with same until his anemia improves further and his kidney function also improves.
[2016-07-12] MEDS: ROSUVASTATIN 10 MG TAB (CRESTOR) PO SCH (22:01)
[2016-07-13] MEDS: CLINDAMYCIN 900 MG in APPROPRIATE DILUENT 1 EA IV SCH (05:51)
[2016-07-13 06:00] VITALS: BP 108/57
[2016-07-13] MEDS: HumaLOG INSULIN (NovoLOG) PER UNIT SC SCH ×3 (07:30→17:00)
[2016-07-13 07:40] LABS: MEAN CORPUSCULAR HEMOGLOBIN 26.6 pg (27.0-33.0); MEAN CORPUSCULAR HGB CONC 30.8 g/dl (32.0-36.5); MEAN CORPUSCULAR VOLUME 86.4 fl (80.0-96.0); RED CELL DISTRIBUTION WIDTH 17.2 % (11.5-14.5)
[2016-07-13 08:00] LABS: CALCIUM LEVEL 8.6 MG/DL (8.8-10.2); CREATININE FOR GFR 4.77 MG/DL (0.70-1.30); GLOMERULAR FILTRATION RATE 13.4 (>49); POTASSIUM SERUM 4.7 MEQ/L (3.5-5.1)
[2016-07-13] MEDS: risperiDONE 2 MG TAB PO SCH (08:27)
[2016-07-13] MEDS: METHYLPHENIDATE 5 MG TAB PO SCH ×2 (08:27→12:13)
[2016-07-13] MEDS: LACTOBACILLUS ACIDOPHILUS CAP (BACID) PO SCH ×2 (08:27→21:22)
[2016-07-13] MEDS: METOPROLOL TART 50 MG TAB PO SCH ×2 (08:27→21:22)
[2016-07-13] MEDS: PANTOPRAZOLE 40MG TAB (PROTONIX) PO SCH (08:27)
[2016-07-13] MEDS: METHADONE 10 MG TAB (S0109) PO SCH ×3 (08:29→21:59)
[2016-07-13] MEDS: ASPIRIN 81 MG ENTERIC TAB PO SCH (08:29)
[2016-07-13] MEDS: ESCITALOPRAM OXALATE 10 MG TAB (LEXAPRO) PO SCH (08:29)
[2016-07-13] MEDS ORDERED: NS 1,000 ML IV SCH (09:00)
--- NOTE | 2016-07-13 09:40 | IPNPDOC ---
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 Patient reports pain is doing well on current with no fever chills. Nursing notes a little drainage from the sore in the back of the right calf. Patient a bit anxious about being strong enough and independent enough in his mobility to go home as planned on the . to come in today and can participate in training for car transfers. She should also be bring in the Curious Sensearen gel which should further help right shoulder and hip/thigh comfort. ALLERGIES: See Below MEDICATIONS: Reviewed, see below. OBJECTIVE: VITAL SIGNS: Please see below. PHYSICAL EXAMINATION: GENERAL: Middle-age white male with verbally or injections of Tourette's syndrome who is in no acute distress but little anxious. He is alert and oriented 4, speech is clear coherent and appropriate, affect is pleasant and cooperative except for the anxiousness. Memory is good. Patient is in very mild to no musculoskeletal distress, but still has increased tone in the right body. HEENT: Head tilting less impressive today. Patient was saying up in a manual wheelchair having just completed sliding board transfer I came in to see him. CARDIOVASCULAR: Regular rate and rhythm with normal S1 and S2 and 2 out 4 bilateral radial pulses. LUNGS: Lungs are clear in all lin saw auscultation with good air movement. ABDOMEN: Bowel sounds are present in all quadrants. Abdomen is nontender. NEUROLOGICAL: As noted above patient however is getting better control and balance since progressing as transfer skills including some parents stand pivot. SKIN: Less than 1 cm diameter scab on mid posterior right calf. This has some very mild but dark drainage without aroma. The venous stasis type of discoloration of both legs continues to slowly fade and almost all the calluses have sloughed and overall the legs do appear to be improving. LABORATORY DATA: Reviewed. Please see below. MICROBIOLOGY: Please see below. IMAGING: No new. DVT prophylaxis ordered?: Aspirin. ASSESSMENT AND PLAN: 1. Rehabilitation of debilitation secondary to vasculitis and secondary infection: Patient making good progress. Tone is improving and with its patient' s ability to stand balance and transfer. However patient is expressing his concerns about not being completely at baseline when he leaves here. We are trying to reassure him that he will continue in therapy and should continue to make progress. Hopefully with the bulk time patient will be more relaxed and showed more functional strength on the right side as this should help his comfort. 2. Acute kidney injury: Dr. Higuera whose notes appreciated I will try to encourage patient to increase his by mouth intake of fluids. 3. Increased tone probably related to the Tourette's syndrome: Patient has responded to physical therapy and hopefully we will continue to see progressive effects from the Botox injection of the right shoulder and now hopefully some benefit from the Voltaren Gel. TIME SPENT: Chart Review, examination and documentation greater than 25 minutes. Allergies Coded Allergies: Sulfamethoxazole w/Trimethoprim (Verified Allergy, Unknown, 07/01/16) Vital Signs Vital Signs Date Time Temp Pulse Resp B/P Pulse Ox O2 Delivery O2 Flow Rate FiO2 07/13/16 08:29 16 07/13/16 08:27 69 120/68 07/13/16 06:00 98.3 98 Room Air Laboratory Data CBC/BMP Laboratory Tests 07/13/16 06:50 Calcium Level 8.6 L, Red Blood Count 3.27 L, Mean Corpuscular Volume 86.4, Mean Corpuscular Hemoglobin 26.6 L, Mean Corpuscular Hemoglobin Concent 30.8 L, Red Cell Distribution Width 17.2 H Labs 24H Laboratory Tests 2 07/12/16 11:25: Bedside Glucose (Misc Panel) 108 07/12/16 16:55: Bedside Glucose (Misc Panel) 123H 07/12/16 20:36: Bedside Glucose (Misc Panel) 214H 07/13/16 06:45: Bedside Glucose (Misc Panel) 148H 07/13/16 06:50: Anion Gap 9, Blood Urea Nitrogen 60H, Creatinine 4.77H, Sodium Level 133L, Potassium Level 4.7, Chloride Level 98, Carbon Dioxide Level 26, Calcium Level 8.6L, Glomerular Filtration Rate 13.4L Current Medications Current Medications Current Medications Acetaminophen (Tylenol Tab) 650 mg Q6HP PRN PO PAIN Last administered on t 15:15; Start 07/01/16 at 11:30; Stop 07/31/16 at 11:29 Aspirin (Ecotrin) 81 mg DAILY PO Last administered on 07/13/16 08:29; Start at 09:00; Stop 08/01/16 at 08:59 Calcium Carbonate (Tums) 1,000 mg Q4HP PRN PO HEARTBURN; Start 07/01/16 at 11: 30; Stop 07/31/16 at 11:29 Clindamycin Phosphate/IV Miscellaneous Supplies (Cleocin) 50 ml @ 50 mls/hr Q8H IV Last administered on 07/13/16 05:51; Start 07/01/16 at 14:00; Stop at 13:59 Darbepoetin Pablo (Aranesp (Dialysis Use)) 200 mcg HD IV ; Start 07/03/16 at 08: 00; Stop 07/10/16 at 12:22; Status DC Darbepoetin Pablo 200 mcg 200 mcg Sa@09 SQ Last administered on 07/11/16 09:37 ; Start 07/11/16 at 09:00; Stop 08/10/16 at 08:59 Dextrose (Dextrose 50%) 25 ml ASDIRECTED PRN IV SEE LABEL COMMENTS; Start 07/01 at 13:45; Stop 07/31/16 at 13:44 Docusate Sodium (Colace) 100 mg Q12HP PRN PO CONSTIPATION; Start 07/01/16 at 11 :30; Stop 07/31/16 at 11:29 Escitalopram Oxalate (Lexapro) 10 mg DAILY PO Last administered on 07/13/16 08 :29; Start 07/09/16 at 09:00; Stop 08/08/16 at 08:59 Glucagon (Glucagon) 1 mg ASDIRECTED PRN SC SEE LABEL COMMENTS; Start 07/01/16 at 13:45; Stop 07/31/16 at 13:44 Glucose (Glucose) 16 GM ASDIRECTED PRN PO SEE LABEL COMMENTS; Start 07/01/16 at 13:45; Stop 07/31/16 at 13:44 Home Med (Med Rec Complete!) ASDIRECTED XX ; Start 07/01/16 at 14:15; Stop 03/07 at 14:22; Status DC Hydrocortisone (Hydrocortisone 1% Cream) Apply a small herberth... QIDP PRN TOP anal burning and itching; Start 07/08/16 at 11:15; Stop 08/07/16 at 11:14 Hydromorphone HCl (Dilaudid) 2 mg Q4HP PRN PO MODERATE/SEVERE PAIN (PS 5-10) Last administered on 07/05/16 15:24; Start 07/01/16 at 12:15; Stop 07/08/16 at 09:00; Status DC Hydromorphone HCl (Dilaudid) 2 mg Q6HP PRN PO MODERATE/SEVERE PAIN (PS 5-10) Last administered on 07/11/16 05:33; Start 07/09/16 at 15:15; Stop 07/17/16 at 10:00 Insulin Human Lispro (HumaLOG INSULIN) SEE PROTOCOL TABLE AC SC Last administered on 07/13/16 07:30; Start 07/01/16 at 17:30; Stop 07/31/16 at 17:29 Iron (Venofer) 100 mg HD IV ; Start 07/02/16 at 09:45; Stop 07/13/16 at 08:43; Status DC Lactobacillus Acidophilus (Bacid) 1 ea BID PO Last administered on 07/13/16 08 :27; Start 07/01/16 at 21:00; Stop 07/31/16 at 20:59 Methadone HCl (Dolophine) 35 mg DAILY@14 PO Last administered on 07/08/16 15: 10; Start 07/03/16 at 14:00; Stop 07/09/16 at 09:13; Status DC Methadone HCl (Dolophine) 35 mg DAILY@14,22 PO Last administered on 07/12/16 22:00; Start 07/09/16 at 14:00; Stop 07/16/16 at 13:59 Methadone HCl (Dolophine) 35 mg QHS PO ; Start 07/09/16 at 21:00; Stop 07/17/16 at 22:30; Status UNV Methadone HCl (Dolophine) 40 mg DAILY@08 PO Last administered on 07/13/16 08: 29; Start 07/10/16 at 08:00; Stop 07/17/16 at 07:59 Methadone HCl (Dolophine) 40 mg DAILY@08,22 PO Last administered on 07/09/16 08:40; Start 07/03/16 at 22:00; Stop 07/09/16 at 09:13; Status DC Methadone HCl (Dolophine) 40 mg TID PO Last administered on 07/03/16 08:10; Start 07/01/16 at 16:00; Stop 07/03/16 at 10:00; Status DC Methylphenidate HCl (Ritalin) 20 mg BID@08,12 PO Last administered on 08:41; Start 07/03/16 at 08:00; Stop 07/09/16 at 09:14; Status DC Methylphenidate HCl (Ritalin) 20 mg BID@08,12 PO Last administered on 08:27; Start 07/09/16 at 12:00; Stop 07/17/16 at 22:30 Metoprolol Tartrate (Lopressor) 50 mg BID PO Last administered on 07/13/16 08: 27; Start 07/01/16 at 21:00; Stop 07/31/16 at 20:59 Mineral Oil/White Petrolatum (Eucerin) TO DRY AREAS ON RT L... BID PRN TOP Dry skin; Start 07/01/16 at 11:30; Stop 07/31/16 at 11:29 Miscellaneous (Unresolved Non-Formulary Med Order) SEE LABEL COMMENTS UNRESOLVED XX ; Start 07/01/16 at 00:01; Stop 07/02/16 at 19:02; Status DC Miscellaneous (Unresolved Patient Own Med Order) SEE LABEL COMMENTS UNRESOLVED XX ; Start 07/08/16 at 00:01; Stop 08/07/16 at 00:00 Non-Formulary Medication Liquacel Ligquid Prot... DAILY PO ; Start 07/02/16 at 09:00; Stop 07/02/16 at 09:51; Status DC Non-Formulary Medication Procrit 10,000 Unitis... 2XW IV ; Start 07/01/16 at 12: 15; Stop 07/02/16 at 09:50; Status DC Nystatin (Mycostatin Powder, Nystop) BIDP PRN TOP RASH; Start 07/01/16 at 11: 30; Stop 07/31/16 at 11:29 Pantoprazole Sodium (Protonix) 40 mg DAILY PO Last administered on 07/13/16 08 :27; Start 07/02/16 at 09:00; Stop 08/01/16 at 08:59 Patient Own Medication (Patient'S Own Med) Diclofenac 1% Gel: Appl... QIDP PRN TOP PAIN; Start 07/10/16 at 10:45; Stop 08/09/16 at 10:44; Status Future Hold Risperidone (RisperDAL) 2 mg DAILY PO Last administered on 07/13/16 08:27; Start 07/02/16 at 09:00; Stop 08/01/16 at 08:59 Rosuvastatin Calcium (Crestor) 20 mg QHS PO Last administered on 07/12/16 22: 01; Start 07/08/16 at 21:00; Stop 08/07/16 at 20:59 Senna (Senokot) 2 tab QHSP PRN PO CONSTIPATION; Start 07/01/16 at 11:30; Stop 07/31/16 at 11:29 Sevelamer Carbonate (Renvela) 800 mg WM PO Last administered on 07/11/16 08:18 ; Start 07/01/16 at 12:30; Stop 07/11/16 at 10:19; Status DC Sodium Chloride (Nacl 0.9%) 1,000 ml @ 200 mls/hr Q5H IV ; Start 07/13/16 at 09 :00; Stop 07/13/16 at 13:59 Triamcinolone Acetonide (Kenalog 0.1% Cream) prn fungal rash for 7 Days BID PRN TOP RASH Last administered on 07/02/16 08:31; Start 07/01/16 at 11:30; Stop 07/08/16 at 11:29; Status DC CHRIS DUMONT MD Jul 13, 2016 09:40
--- NOTE | 2016-07-13 09:42 | IPNPDOC ---
Subjective Date Seen The patient was seen on 07/13/16. Subjective Chief Complaint/HPI The patient is a 61-year-old male admitted with a reason for visit of Severe Sepsis. Events since last encounter Patient is out of bed in the wheelchair. He is drinking some fluids. Pt states he is still feeling weak. He states appetite is poor. He does not complain of nausea or vomiting. ENT: Denies: Dysphagia, Ear Pain, Head Aches Pulmonary: Denies: Cough, Dyspnea Cardiovascular: Denies: Chest Pain, Lt Headedness, Orthopnea, Palpitations, Paroxysmal Noc. Dyspnea Objective Physical Examination General Exam: Positive: Alert Eye Exam: Positive: PERRLA ENT Exam: Positive: Atraumatic, Mucous membr. moist/pink, Pharynx Normal Chest Exam: Positive: Clear to auscultation, Normal air movement Heart Exam: Positive: Normal S1, Normal S2, Rate Normal, Regular Rhythm, Negative: Murmurs, Rubs Extremity Exam: Negative: Edema, Swelling, Tenderness Skin Exam: Positive: Other skin issue (chronic skin changes LEs, skin scaling) Assessment /Plan Problems (1) Cellulitis of right leg Status: Chronic Problem Text: * GAS Bacteremia * IV Clinda as per D/C recommendations x 14 days * Afebrile * No leukocytosis (2) MARCEL (obstructive sleep apnea) Status: Chronic Problem Text: * BIPAP machine pending from home * Pt states it was not functioning appropriately/fitting appropriately * Pulmonary was consulted for further fitting and management. (3) Immunocompromised Status: Chronic Problem Text: * Outpatient medications are on hold. * Patient follows with a spine surgeon in [place]. * Outpatient follow-up. (4) ESRD (end stage renal disease) Status: Chronic Problem Text: * Hemodialysis as per nephrology, dialysis has been on hold at this time. * Last dialysis 07/06/16. * Nephrology is following labs. (5) Chronic pain Status: Chronic Problem Text: * Pain management as per attending * Methadone weaning as per attending. * Monitor for lethargy and respiratory status. (6) Anemia in CKD (chronic kidney disease) Status: Chronic Problem Text: * Nephrology monitoring. * Aranesp as per nephrology * Iron supplement * monitor (7) CHF (congestive heart failure) Status: Chronic Problem Text: * No signs of decompensation at this time. * Nephrology. * Lopressor/ASA/Crestor (8) Diabetes mellitus type 2 with complications Status: Chronic Problem Text: * CC diet * Sliding scale insulin (9) Tourette syndrome Status: Chronic Problem Text: * mgmt as per attending. (10) GERD (gastroesophageal reflux disease) Status: Chronic Problem Text: * PPI * Bacid Plan/VTE VTE Prophylaxis Ordered?: No (as per attending) Disposition as per ARU VS, I&O, 24H, Fishbone Vital Signs/I&O Vital Signs Date Time Temp Pulse Resp B/P Pulse Ox O2 Delivery O2 Flow Rate FiO2 07/13/16 08:29 16 07/13/16 08:27 69 120/68 07/13/16 06:00 98.3 98 Room Air I&O- Last 24 Hours up to 6 AM 07/13/16 06:00 Intake Total 1730 ml Output Total 1950 ml Balance -220 ml Laboratory Data 24H LABS Laboratory Tests 2 07/12/16 11:25: Bedside Glucose (Misc Panel) 108 07/12/16 16:55: Bedside Glucose (Misc Panel) 123H 07/12/16 20:36: Bedside Glucose (Misc Panel) 214H 07/13/16 06:45: Bedside Glucose (Misc Panel) 148H 07/13/16 06:50: Anion Gap 9, Blood Urea Nitrogen 60H, Creatinine 4.77H, Sodium Level 133L, Potassium Level 4.7, Chloride Level 98, Carbon Dioxide Level 26, Calcium Level 8.6L, Glomerular Filtration Rate 13.4L CBC/BMP Laboratory Tests 07/13/16 06:50 Calcium Level 8.6 L, Red Blood Count 3.27 L, Mean Corpuscular Volume 86.4, Mean Corpuscular Hemoglobin 26.6 L, Mean Corpuscular Hemoglobin Concent 30.8 L, Red Cell Distribution Width 17.2 H Kaylen Smith Jul 13, 2016 09:42
--- NOTE | 2016-07-13 13:00 | IPN ---
DATE: 07/13/2016 Mr. Diaz is seen this morning on his bedside. He is feeling well and denies any nausea or vomiting today. Yesterday he did not feel very well. The patient has no dyspnea or chest pain. He has not been dialyzed for about a week now and has good urine output. We are anticipating improvement in his kidney function. PHYSICAL EXAMINATION: Temperature 98.3 degrees Fahrenheit, heart rate 70 per minute and respiratory rate 18 per minute. Blood pressure 120/68 mmHg and oxygen saturation 98% on room air. Head: Is atraumatic. Ears, nose and throat are unremarkable. Pupils are equal and reactive to light and sclera is anicteric. Dialysis catheter in right internal vein intact. Heart sounds are regular and lungs clear to auscultation. Abdomen: Soft and nontender and without palpable organomegaly. Bowel sounds are normal. Extremities have no cyanosis or clubbing. Skin has no rash or ulcers. Neurologically he is awake, alert and oriented x3. Intake and output records from yesterday showed negative fluid balance of about 300 mL. Overall for the last 5 days he has been negative by almost 3 liters. Since admission his negative fluid balance is about 7 liters. However, he was also at that time volume overloaded. Today's labs show WBC count 4.0, hemoglobin 8.7 and hematocrit 28.2. Platelets 194. Sodium 133 and potassium 4.7. BUN 60 and creatinine 4.77. Calcium level is 8.6. PROBLEMS: 1. Acute renal failure possibly superimposed on chronic kidney disease. The patient continues to have slow gradual increase in his serum creatinine while we were anticipating improvement in his kidney function. He is also in negative fluid balance for last 5 days and I am quite concerned about ongoing negative fluid balance with dehydration and gradual decline in kidney function. I do not feel that dialysis is indicated at this point. We will give him 1 liter of normal saline today over 5 hours and then recheck his renal profile. The patient is also being encouraged to increase his oral fluid intake. Another concern I have is about possibility of interstitial nephritis due to clindamycin. I have discussed with Dr. Henning and suggested to stop his clindamycin as he has probably already completed about 6 weeks of antibiotic therapy. This could also help to resolve his acute renal failure. 2. Hyponatremia. This is mild and stable. At this point no intervention is indicated. 3. Anemia. His anemia is stable. We gave him Aranesp dose already over the weekend. We will continue to monitor without any other intervention. DISPOSITION: The patient is likely to be discharged later this week from rehab. I anticipate that his kidney function will improve before he gets discharged and we can remove his dialysis catheter. At this point we will continue to monitor closely with above plan. MTDD
[2016-07-13 15:00] VITALS: BP 116/57
[2016-07-13 16:30] LABS: CALCIUM LEVEL 8.6 MG/DL (8.8-10.2); CREATININE FOR GFR 4.7 MG/DL (0.70-1.30); GLOMERULAR FILTRATION RATE 13.6 (>49); POTASSIUM SERUM 4.8 MEQ/L (3.5-5.1)
[2016-07-13 20:00] VITALS: BP 116/51
--- NOTE | 2016-07-13 21:20 | ECGEPIP ---
Stationary ECG Study 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
[2016-07-13] MEDS: ROSUVASTATIN 10 MG TAB (CRESTOR) PO SCH (21:22)
[2016-07-14] VITALS (8 sets, daily range): BP systolic 107–145; BP diastolic 55–76
[2016-07-14 06:29] LABS: MEAN CORPUSCULAR HEMOGLOBIN 26.6 pg (27.0-33.0); MEAN CORPUSCULAR HGB CONC 31.3 g/dl (32.0-36.5); RED CELL DISTRIBUTION WIDTH 17.2 % (11.5-14.5); WHITE BLOOD COUNT 3.8 K/mm3 (4.0-10.0)
[2016-07-14 06:48] LABS: CALCIUM LEVEL 8.7 MG/DL (8.8-10.2); CREATININE FOR GFR 4.63 MG/DL (0.70-1.30); GLOMERULAR FILTRATION RATE 13.8 (>49); POTASSIUM SERUM 4.5 MEQ/L (3.5-5.1)
[2016-07-14] MEDS: risperiDONE 2 MG TAB PO SCH (08:04)
[2016-07-14] MEDS: METHYLPHENIDATE 5 MG TAB PO SCH ×2 (08:04→12:24)
[2016-07-14] MEDS: ESCITALOPRAM OXALATE 10 MG TAB (LEXAPRO) PO SCH (08:04)
[2016-07-14] MEDS: ASPIRIN 81 MG ENTERIC TAB PO SCH (08:04)
[2016-07-14] MEDS: PANTOPRAZOLE 40MG TAB (PROTONIX) PO SCH (08:04)
[2016-07-14] MEDS: LACTOBACILLUS ACIDOPHILUS CAP (BACID) PO SCH ×2 (08:05→22:35)
[2016-07-14] MEDS: METHADONE 10 MG TAB (S0109) PO SCH ×3 (08:05→22:34)
[2016-07-14] MEDS: HumaLOG INSULIN (NovoLOG) PER UNIT SC SCH ×3 (08:06→17:06)
[2016-07-14] MEDS: METOPROLOL TART 50 MG TAB PO SCH ×2 (08:11→22:35)
--- NOTE | 2016-07-14 09:53 | IPNPDOC ---
[facility] [employer] Progress Note DATE OF SERVICE: 07/14/2016 DATE OF ADMISSION: Jul 01, 2016 at 12:05 INPATIENT REHABILITATION ADMISSION DAY: #13 SUBJECTIVE: Patient is a 61-year-old white male with vasculitis caused infection with secondary debilitation. Patient still expresses some anxiousness about discharge date and his readiness. 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 However I think he is contact-guard assistance however this is much less of a load on his at the time he returns home. He is not having a increased problems with his pain. He denies fever chills other complaints. ALLERGIES: See Below MEDICATIONS: Reviewed, see below. OBJECTIVE: VITAL SIGNS: Please see below. PHYSICAL EXAMINATION: GENERAL: Well-developed middle-aged white male with decreased musculature distally in the upper and lower extremities. Patient is in no acute distress. He is alert and oriented 4. Speech is clear coherent and appropriate in general with the Tourette's insertions. Memory is good. Affect shows a bit of anxiousness though less than yesterday. HEENT: No change. CARDIOVASCULAR: Regular rate and rhythm with normal S1 and S2 without S3-S4 murmurs or rubs. 2 out 4 bilateral radial pulses. LUNGS: All lin are clear auscultation with good air movement. ABDOMEN: Benign with normal bowel sounds in all quadrants. NEUROLOGICAL: As above. SKIN: No appreciable change. LABORATORY DATA: Reviewed. Please see below. MICROBIOLOGY: Please see below. IMAGING: No new imaging. DVT prophylaxis ordered?: Aspirin. ASSESSMENT AND PLAN: 1. Rehabilitation of debilitation secondary to vasculitis caused infection: Patient continuing to make progress and is back to pre-illness baseline and most activities. Currently transfers are the big focus as this will allow home care and eventual return to work to succeed. 2. Acute kidney injury on end-stage renal disease: Patient status post of 1 L saline fluid challenge yesterday with slight improvement in BUN/creatinine and sodium. Dr Higuera will assess him further and adjust things with regards to renal management. 3. Tourette's syndrome and tone: Tone has improved and in general patient seems a little less anxious and having fewer Tourette's outbursts. TIME SPENT: Chart Review, examination and documentation greater than 25 minutes. Allergies Coded Allergies: Sulfamethoxazole w/Trimethoprim (Verified Allergy, Unknown, 07/01/16) Vital Signs Vital Signs Date Time Temp Pulse Resp B/P Pulse Ox O2 Delivery O2 Flow Rate FiO2 07/14/16 08:11 78 122/61 07/14/16 08:05 16 Room Air 07/14/16 06:00 98.4 97 Laboratory Data CBC/BMP Laboratory Tests 07/13/16 15:49 Calcium Level 8.6 L 07/14/16 06:13 Calcium Level 8.7 L, Red Blood Count 3.21 L, Mean Corpuscular Volume 85.0, Mean Corpuscular Hemoglobin 26.6 L, Mean Corpuscular Hemoglobin Concent 31.3 L, Red Cell Distribution Width 17.2 H Labs 24H Laboratory Tests 2 07/13/16 11:39: Bedside Glucose (Misc Panel) 143H 07/13/16 15:49: Anion Gap 9, Blood Urea Nitrogen 61H, Creatinine 4.70H, Sodium Level 132L, Potassium Level 4.8, Chloride Level 98, Carbon Dioxide Level 25, Calcium Level 8.6L, Glomerular Filtration Rate 13.6L 07/13/16 16:52: Bedside Glucose (Misc Panel) 123H 07/13/16 19:03: Bedside Glucose (Misc Panel) 168H 07/14/16 06:13: Anion Gap 7L, Blood Urea Nitrogen 57H, Creatinine 4.63H, Sodium Level 134L, Potassium Level 4.5, Chloride Level 100, Carbon Dioxide Level 27, Calcium Level 8.7L, Glomerular Filtration Rate 13.8L Current Medications Current Medications Current Medications Acetaminophen (Tylenol Tab) 650 mg Q6HP PRN PO PAIN Last administered on 15:15; Start 07/01/16 at 11:30; Stop 07/31/16 at 11:29 Aspirin (Ecotrin) 81 mg DAILY PO Last administered on 07/14/16 08:04; Start at 09:00; Stop 08/01/16 at 08:59 Calcium Carbonate (Tums) 1,000 mg Q4HP PRN PO HEARTBURN; Start 07/01/16 at 11: 30; Stop 07/31/16 at 11:29 Clindamycin Phosphate/IV Miscellaneous Supplies (Cleocin) 50 ml @ 50 mls/hr Q8H IV Last administered on 07/13/16 05:51; Start 07/01/16 at 14:00; Stop at 10:01; Status DC Darbepoetin Pablo (Aranesp (Dialysis Use)) 200 mcg HD IV ; Start 07/03/16 at 08: 00; Stop 07/10/16 at 12:22; Status DC Darbepoetin Pablo 200 mcg 200 mcg Sa@09 SQ Last administered on 07/11/16 09:37 ; Start 07/11/16 at 09:00; Stop 08/10/16 at 08:59 Dextrose (Dextrose 50%) 25 ml ASDIRECTED PRN IV SEE LABEL COMMENTS; Start 07/01 at 13:45; Stop 07/31/16 at 13:44 Docusate Sodium (Colace) 100 mg Q12HP PRN PO CONSTIPATION; Start 07/01/16 at 11 :30; Stop 07/31/16 at 11:29 Escitalopram Oxalate (Lexapro) 10 mg DAILY PO Last administered on 07/14/16 08 :04; Start 07/09/16 at 09:00; Stop 08/08/16 at 08:59 Glucagon (Glucagon) 1 mg ASDIRECTED PRN SC SEE LABEL COMMENTS; Start 07/01/16 at 13:45; Stop 07/31/16 at 13:44 Glucose (Glucose) 16 GM ASDIRECTED PRN PO SEE LABEL COMMENTS; Start 07/01/16 at 13:45; Stop 07/31/16 at 13:44 Home Med (Med Rec Complete!) ASDIRECTED XX ; Start 07/01/16 at 14:15; Stop 03/07 at 14:22; Status DC Hydrocortisone (Hydrocortisone 1% Cream) Apply a small herberth... QIDP PRN TOP anal burning and itching; Start 07/08/16 at 11:15; Stop 08/07/16 at 11:14 Hydromorphone HCl (Dilaudid) 2 mg Q4HP PRN PO MODERATE/SEVERE PAIN (PS 5-10) Last administered on 07/05/16 15:24; Start 07/01/16 at 12:15; Stop 07/08/16 at 09:00; Status DC Hydromorphone HCl (Dilaudid) 2 mg Q6HP PRN PO MODERATE/SEVERE PAIN (PS 5-10) Last administered on 07/11/16 05:33; Start 07/09/16 at 15:15; Stop 07/17/16 at 10:00 Insulin Human Lispro (HumaLOG INSULIN) SEE PROTOCOL TABLE AC SC Last administered on 07/14/16 08:06; Start 07/01/16 at 17:30; Stop 07/31/16 at 17:29 Iron (Venofer) 100 mg HD IV ; Start 07/02/16 at 09:45; Stop 07/13/16 at 08:43; Status DC Lactobacillus Acidophilus (Bacid) 1 ea BID PO Last administered on 07/14/16 08 :05; Start 07/01/16 at 21:00; Stop 07/31/16 at 20:59 Methadone HCl (Dolophine) 35 mg DAILY@14 PO Last administered on 07/08/16 15: 10; Start 07/03/16 at 14:00; Stop 07/09/16 at 09:13; Status DC Methadone HCl (Dolophine) 35 mg DAILY@14,22 PO Last administered on 07/13/16 21:59; Start 07/09/16 at 14:00; Stop 07/14/16 at 08:14; Status DC Methadone HCl (Dolophine) 35 mg DAILY@14,22 PO ; Start 07/14/16 at 14:00; Stop 07/17/16 at 12:00 Methadone HCl (Dolophine) 35 mg QHS PO ; Start 07/09/16 at 21:00; Stop 07/17/16 at 22:30; Status UNV Methadone HCl (Dolophine) 40 mg DAILY@08 PO Last administered on 07/14/16 08: 05; Start 07/10/16 at 08:00; Stop 07/17/16 at 07:59 Methadone HCl (Dolophine) 40 mg DAILY@08,22 PO Last administered on 07/09/16 08:40; Start 07/03/16 at 22:00; Stop 07/09/16 at 09:13; Status DC Methadone HCl (Dolophine) 40 mg TID PO Last administered on 07/03/16 08:10; Start 07/01/16 at 16:00; Stop 07/03/16 at 10:00; Status DC Methylphenidate HCl (Ritalin) 20 mg BID@08,12 PO Last administered on 08:41; Start 07/03/16 at 08:00; Stop 07/09/16 at 09:14; Status DC Methylphenidate HCl (Ritalin) 20 mg BID@08,12 PO Last administered on 08:04; Start 07/09/16 at 12:00; Stop 07/17/16 at 22:30 Metoprolol Tartrate (Lopressor) 50 mg BID PO Last administered on 07/14/16 08: 11; Start 07/01/16 at 21:00; Stop 07/31/16 at 20:59 Mineral Oil/White Petrolatum (Eucerin) TO DRY AREAS ON RT L... BID PRN TOP Dry skin; Start 07/01/16 at 11:30; Stop 07/31/16 at 11:29 Miscellaneous (Unresolved Non-Formulary Med Order) SEE LABEL COMMENTS UNRESOLVED XX ; Start 07/01/16 at 00:01; Stop 07/02/16 at 19:02; Status DC Miscellaneous (Unresolved Patient Own Med Order) SEE LABEL COMMENTS UNRESOLVED XX ; Start 07/08/16 at 00:01; Stop 08/07/16 at 00:00 Non-Formulary Medication Liquacel Ligquid Prot... DAILY PO ; Start 07/02/16 at 09:00; Stop 07/02/16 at 09:51; Status DC Non-Formulary Medication Procrit 10,000 Unitis... 2XW IV ; Start 07/01/16 at 12: 15; Stop 07/02/16 at 09:50; Status DC Nystatin (Mycostatin Powder, Nystop) BIDP PRN TOP RASH; Start 07/01/16 at 11: 30; Stop 07/31/16 at 11:29 Pantoprazole Sodium (Protonix) 40 mg DAILY PO Last administered on 07/14/16 08 :04; Start 07/02/16 at 09:00; Stop 08/01/16 at 08:59 Patient Own Medication (Patient'S Own Med) Diclofenac 1% Gel: Appl... QIDP PRN TOP PAIN; Start 07/10/16 at 10:45; Stop 08/09/16 at 10:44; Status Future Hold Risperidone (RisperDAL) 2 mg DAILY PO Last administered on 07/14/16 08:04; Start 07/02/16 at 09:00; Stop 08/01/16 at 08:59 Rosuvastatin Calcium (Crestor) 20 mg QHS PO Last administered on 07/13/16 21: 22; Start 07/08/16 at 21:00; Stop 08/07/16 at 20:59 Senna (Senokot) 2 tab QHSP PRN PO CONSTIPATION; Start 07/01/16 at 11:30; Stop 07/31/16 at 11:29 Sevelamer Carbonate (Renvela) 800 mg WM PO Last administered on 07/11/16 08:18 ; Start 07/01/16 at 12:30; Stop 07/11/16 at 10:19; Status DC Sodium Chloride (Nacl 0.9%) 1,000 ml @ 200 mls/hr Q5H IV Last administered on 07/13/16 09:56; Start 07/13/16 at 09:00; Stop 07/13/16 at 13:59; Status DC Triamcinolone Acetonide (Kenalog 0.1% Cream) prn fungal rash for 7 Days BID PRN TOP RASH Last administered on 07/02/16 08:31; Start 07/01/16 at 11:30; Stop 07/08/16 at 11:29; Status DC CHRIS DUMONT MD Jul 14, 2016 09:53
[2016-07-14] MEDS ORDERED: IRON SUCROSE 375 MG in NS 250 ML IV ONE ×2 (12:15→15:00)
--- NOTE | 2016-07-14 12:26 | IPN ---
DATE: 07/14/2016 Mr. 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 He is sitting in the chair. He continues with rehabilitation due to severe deconditioning. He is tentatively scheduled for discharge on ; however, the patient feels that he is not quite ready for it yet. He denies any dyspnea, chest pain, nausea or vomiting. He had acute renal failure due to urosepsis which is now slowly improving. He has not required dialysis for a week. On physical examination, temperature 98.4 degrees Fahrenheit, heart rate 78 per minute and respiratory rate 16 per minute. Bloodpressure 122/68 mmHg and oxygen saturation 97% on room air.Intake and output records from yesterday showed total intake 2740 and [id number]. His head is atraumatic. Neck is supple and without jugular venous distention (JVD) or thyroid enlargement. Dialysis catheter right upper chest is intact. Heart sounds regular and lungs clear to auscultation. Abdomen soft, nontender. Bowel sounds are normal. Extremities have no cyanosis or clubbing. Skin has no rash or ulcers. Neurologically, he is awake, alert and oriented times three. Today's labs show sodium level 134 and potassium of 5, BUN 57 and creatinine 4.63. Calcium level 8.7. WBC count 3.8, hemoglobin 8.5 and hematocrit 27.3. PROBLEMS: 1. Acute renal failure. Kidney function has started to improve though slowly but surely. He has no uremic symptoms at present. We have stopped his clindamycin, which I felt was probably causing interstitial nephritis. There is no emergent need for dialysis and we will monitor his kidney function for one more day. If his kidney function improves further, then his dialysis catheter will be removed tomorrow. 2. Anemia with iron deficiency. The patient did receive some IV iron during dialysis. However, he has not been dialyzed for about a week. We will give him one dose of Venofer 400 mg today. He has already received 200 mcg of Aranesp over the weekend. 3. Hyponatremia. Sodium level is slightly improved today. It is likely to improve further as his kidney function is improving. MTDD
[2016-07-14] MEDS ORDERED: IRON SUCROSE 25 MG in NS 50 ML IV ONE (14:00)
[2016-07-14] MEDS ORDERED: NS IV ONE (15:00)
[2016-07-14] MEDS ORDERED: IRON SUCROSE IV ONE (15:00)
[2016-07-14] MEDS: ROSUVASTATIN 10 MG TAB (CRESTOR) PO SCH (22:35)
[2016-07-15 06:00] VITALS: BP 121/54
[2016-07-15 07:15] LABS: MEAN CORPUSCULAR HEMOGLOBIN 26.6 pg (27.0-33.0); MEAN CORPUSCULAR HGB CONC 30.9 g/dl (32.0-36.5); MEAN CORPUSCULAR VOLUME 86.1 fl (80.0-96.0); RED CELL DISTRIBUTION WIDTH 17.5 % (11.5-14.5); WHITE BLOOD COUNT 3.7 K/mm3 (4.0-10.0)
[2016-07-15 07:31] LABS: CALCIUM LEVEL 8.6 MG/DL (8.8-10.2); CREATININE FOR GFR 4.47 MG/DL (0.70-1.30); GLOMERULAR FILTRATION RATE 14.4 (>49); POTASSIUM SERUM 4.7 MEQ/L (3.5-5.1)
[2016-07-15] MEDS: HumaLOG INSULIN (NovoLOG) PER UNIT SC SCH ×3 (08:51→18:26)
[2016-07-15] MEDS: PANTOPRAZOLE 40MG TAB (PROTONIX) PO SCH (08:51)
[2016-07-15] MEDS: METOPROLOL TART 50 MG TAB PO SCH ×2 (08:51→22:02)
[2016-07-15] MEDS: risperiDONE 2 MG TAB PO SCH (08:51)
[2016-07-15] MEDS: ASPIRIN 81 MG ENTERIC TAB PO SCH (08:52)
[2016-07-15] MEDS: METHADONE 10 MG TAB (S0109) PO SCH ×3 (08:52→22:01)
[2016-07-15] MEDS: ESCITALOPRAM OXALATE 10 MG TAB (LEXAPRO) PO SCH (08:52)
[2016-07-15] MEDS: LACTOBACILLUS ACIDOPHILUS CAP (BACID) PO SCH ×2 (08:52→22:02)
[2016-07-15] MEDS: METHYLPHENIDATE 5 MG TAB PO SCH ×2 (08:52→12:14)
--- NOTE | 2016-07-15 10:53 | IPNPDOC ---
[facility] [employer] Progress Note DATE OF SERVICE: 07/15/2016 DATE OF ADMISSION: Jul 01, 2016 at 12:05 INPATIENT REHABILITATION ADMISSION DAY: #14 SUBJECTIVE: Patient is a 61-year-old white male with vasculitis related infections and secondary debilitation due to streptococcal group a bacteremia. Patient expresses some concern they had a couple of his blood sugar testing, out in the 200 range. Patient however reassured by Ms. Smith and general his insulin needs have been very low only requiring about [address] Higuera feels patient is continuing to improve his renal function and does not need dialysis at this time and will have his central line removed. Patient has expressed a staff desire to be transported home versus going home in the family car. Otherwise patient not having any fever, chills, or significant pain. He will need a glucometer, test strips, Lancets, and a Lancing device for use at home to do his before meals and daily at bedtime blood sugar monitoring. Patient also tends to be concerned about the discoloration from venous stasis and prior vascular problems in both lower extremity feeling his left leg head gotten more red last night when he was in bed. ALLERGIES: See Below MEDICATIONS: Reviewed, see below. OBJECTIVE: VITAL SIGNS: Please see below. PHYSICAL EXAMINATION: GENERAL: Well-developed middle-aged white male, who is alert and oriented 4. Speech is clear coherent and appropriate. Patient little bit anxious and general good spirits and continues to work well with staff. Patient in minimal to no acute distress for musculoskeletal system. Still limited AROM/PROM of RUE & R hip. HEENT: Normocephalic / atraumatic. CARDIOVASCULAR: Regular rate and rhythm with normal S1 and S2 and 2 out 4 radial pulses. LUNGS: All lin clear to auscultation with good air flow. ABDOMEN: Benign with normal bowel sounds. NEUROLOGICAL: As above. Tone making slight improvements but less pain with movement of right shoulder and hip. SKIN: Still little drainage from the posterior right calf and eschars about rate to slough from former incision sites on the right leg. Venous stasis discoloration is slightly improved to unchanged. LABORATORY DATA: Reviewed. Please see below. MICROBIOLOGY: Please see below. IMAGING: No new imaging. DVT prophylaxis ordered?: Continues on aspirin. ASSESSMENT AND PLAN: 1. Rehabilitation of vasculitis caused debilitation: Patient doing well, but anxious about pending discharge. We will continue to try and encourage patient and redirect him to his abilities away from his fears. We'll continue to have patient focus on safe transfers. Anticipate discharge to home tomorrow. 2. Diabetes mellitus type 2: Patient is have fairly good control with diet in the hospital and does not need large doses of long-acting insulin that he needed before. Due to his end-stage renal disease metformin is not an option for him and he is aware of this. Therefore I will go ahead and write for a Glucometer, test strips, lancets, and lancing device. Patient previously using 1 touch system and I will go ahead and write for that brand. Most importantly though is going to be patient's diet outside of here and that was emphasized to him today by Ms. Smith and myself. 3. Acute kidney injury on end-stage renal disease: Patient improving slowly and to have central line pulled today. He will need follow-up with nephrology. 4. Tourette's syndrome: This is been fairly stable by do feel it is the source of his increased tone. I think patient should follow up with Dr. Branham in about 3 months for possible additional injections and treatment. TIME SPENT: Chart Review, examination and documentation greater than 25 minutes. Allergies Coded Allergies: Sulfamethoxazole w/Trimethoprim (Verified Allergy, Unknown, 07/01/16) Vital Signs Vital Signs Date Time Temp Pulse Resp B/P (MAP) Pulse Ox O2 Delivery O2 Flow Rate FiO2 07/15/16 08:52 18 07/15/16 08:51 72 121/54 07/15/16 06:00 98.4 98 Room Air Laboratory Data CBC/BMP Laboratory Tests 07/15/16 06:45 Red Blood Count 3.18 L, Mean Corpuscular Volume 86.1, Mean Corpuscular Hemoglobin 26.6 L, Mean Corpuscular Hemoglobin Concent 30.9 L, Red Cell Distribution Width 17.5 H, Calcium Level 8.6 L Labs 24H Laboratory Tests 2 07/14/16 11:57: Bedside Glucose (Misc Panel) 177H 07/14/16 16:41: Bedside Glucose (Misc Panel) 138H 07/14/16 20:22: Bedside Glucose (Misc Panel) 236H 07/15/16 06:45: Anion Gap 10, Glomerular Filtration Rate 14.4L, Blood Urea Nitrogen 56H, Creatinine 4.47H, Sodium Level 136, Potassium Level 4.7, Chloride Level 101, Carbon Dioxide Level 25, Calcium Level 8.6L Current Medications Current Medications Current Medications Acetaminophen (Tylenol Tab) 650 mg Q6HP PRN PO PAIN Last administered on 15:15; Start 07/01/16 at 11:30; Stop 07/31/16 at 11:29 Aspirin (Ecotrin) 81 mg DAILY PO Last administered on 07/15/16 08:52; Start at 09:00; Stop 08/01/16 at 08:59 Calcium Carbonate (Tums) 1,000 mg Q4HP PRN PO HEARTBURN; Start 07/01/16 at 11: 30; Stop 07/31/16 at 11:29 Clindamycin Phosphate 900 mg/ IV Miscellaneous Supplies 50 ml @ 50 mls/hr Q8H IV Last administered on 07/13/16 05:51; Start 07/01/16 at 14:00; Stop at 10:01; Status DC Darbepoetin Pablo (Aranesp (Dialysis Use)) 200 mcg HD IV ; Start 07/03/16 at 08: 00; Stop 07/10/16 at 12:22; Status DC Darbepoetin Pablo (Aranesp) 200 mcg Sa@09 SQ Last administered on 07/11/16 09: 37; Start 07/11/16 at 09:00; Stop 08/10/16 at 08:59 Dextrose (Dextrose 50%) 25 ml ASDIRECTED PRN IV SEE LABEL COMMENTS; Start 07/01 at 13:45; Stop 07/31/16 at 13:44 Docusate Sodium (Colace) 100 mg Q12HP PRN PO CONSTIPATION; Start 07/01/16 at 11 :30; Stop 07/31/16 at 11:29 Escitalopram Oxalate (Lexapro) 10 mg DAILY PO Last administered on 07/15/16 08 :52; Start 07/09/16 at 09:00; Stop 08/08/16 at 08:59 Glucagon (Glucagon) 1 mg ASDIRECTED PRN SC SEE LABEL COMMENTS; Start 07/01/16 at 13:45; Stop 07/31/16 at 13:44 Glucose (Glucose) 16 GM ASDIRECTED PRN PO SEE LABEL COMMENTS; Start 07/01/16 at 13:45; Stop 07/31/16 at 13:44 Home Med (Med Rec Complete!) ASDIRECTED XX ; Start 07/01/16 at 14:15; Stop 03/07 at 14:22; Status DC Hydrocortisone (Hydrocortisone 1% Cream) Apply a small herberth... QIDP PRN TOP anal burning and itching; Start 07/08/16 at 11:15; Stop 08/07/16 at 11:14 Hydromorphone HCl (Dilaudid) 2 mg Q4HP PRN PO MODERATE/SEVERE PAIN (PS 5-10) Last administered on 07/05/16 15:24; Start 07/01/16 at 12:15; Stop 07/08/16 at 09:00; Status DC Hydromorphone HCl (Dilaudid) 2 mg Q6HP PRN PO MODERATE/SEVERE PAIN (PS 5-10) Last administered on 07/11/16 05:33; Start 07/09/16 at 15:15; Stop 07/17/16 at 10:00 Insulin Human Lispro (HumaLOG INSULIN) SEE PROTOCOL TABLE AC SC Last administered on 07/15/16 08:51; Start 07/01/16 at 17:30; Stop 07/31/16 at 17:29 Iron (Venofer) 100 mg HD IV ; Start 07/02/16 at 09:45; Stop 07/13/16 at 08:43; Status DC Lactobacillus Acidophilus (Bacid) 1 ea BID PO Last administered on 07/15/16 08 :52; Start 07/01/16 at 21:00; Stop 07/31/16 at 20:59 Methadone HCl (Dolophine) 35 mg DAILY@14 PO Last administered on 07/08/16 15: 10; Start 07/03/16 at 14:00; Stop 07/09/16 at 09:13; Status DC Methadone HCl (Dolophine) 35 mg DAILY@14,22 PO Last administered on 07/13/16 21:59; Start 07/09/16 at 14:00; Stop 07/14/16 at 08:14; Status DC Methadone HCl (Dolophine) 35 mg DAILY@14,22 PO Last administered on 07/14/16 22:34; Start 07/14/16 at 14:00; Stop 07/17/16 at 12:00 Methadone HCl (Dolophine) 35 mg QHS PO ; Start 07/09/16 at 21:00; Stop 07/17/16 at 22:30; Status UNV Methadone HCl (Dolophine) 40 mg DAILY@08 PO Last administered on 07/15/16 08: 52; Start 07/10/16 at 08:00; Stop 07/17/16 at 07:59 Methadone HCl (Dolophine) 40 mg DAILY@08,22 PO Last administered on 07/09/16 08:40; Start 07/03/16 at 22:00; Stop 07/09/16 at 09:13; Status DC Methadone HCl (Dolophine) 40 mg TID PO Last administered on 07/03/16 08:10; Start 07/01/16 at 16:00; Stop 07/03/16 at 10:00; Status DC Methylphenidate HCl (Ritalin) 20 mg BID@08,12 PO Last administered on 08:41; Start 07/03/16 at 08:00; Stop 07/09/16 at 09:14; Status DC Methylphenidate HCl (Ritalin) 20 mg BID@08,12 PO Last administered on 08:52; Start 07/09/16 at 12:00; Stop 07/17/16 at 22:30 Metoprolol Tartrate (Lopressor) 50 mg BID PO Last administered on 07/15/16 08: 51; Start 07/01/16 at 21:00; Stop 07/31/16 at 20:59 Mineral Oil/White Petrolatum (Eucerin) TO DRY AREAS ON RT L... BID PRN TOP Dry skin; Start 07/01/16 at 11:30; Stop 07/31/16 at 11:29 Miscellaneous (Unresolved Non-Formulary Med Order) SEE LABEL COMMENTS UNRESOLVED XX ; Start 07/01/16 at 00:01; Stop 07/02/16 at 19:02; Status DC Miscellaneous (Unresolved Patient Own Med Order) SEE LABEL COMMENTS UNRESOLVED XX ; Start 07/08/16 at 00:01; Stop 08/07/16 at 00:00 Non-Formulary Medication Liquacel Ligquid Prot... DAILY PO ; Start 07/02/16 at 09:00; Stop 07/02/16 at 09:51; Status DC Non-Formulary Medication Procrit 10,000 Unitis... 2XW IV ; Start 07/01/16 at 12: 15; Stop 07/02/16 at 09:50; Status DC Nystatin (Mycostatin Powder, Nystop) BIDP PRN TOP RASH; Start 07/01/16 at 11: 30; Stop 07/31/16 at 11:29 Pantoprazole Sodium (Protonix) 40 mg DAILY PO Last administered on 07/15/16 08 :51; Start 07/02/16 at 09:00; Stop 08/01/16 at 08:59 Patient Own Medication (Patient'S Own Med) Diclofenac 1% Gel: Appl... QIDP PRN TOP PAIN; Start 07/10/16 at 10:45; Stop 08/09/16 at 10:44; Status Future Hold Risperidone (RisperDAL) 2 mg DAILY PO Last administered on 07/15/16 08:51; Start 07/02/16 at 09:00; Stop 08/01/16 at 08:59 Rosuvastatin Calcium (Crestor) 20 mg QHS PO Last administered on 07/14/16 22: 35; Start 07/08/16 at 21:00; Stop 08/07/16 at 20:59 Senna (Senokot) 2 tab QHSP PRN PO CONSTIPATION; Start 07/01/16 at 11:30; Stop 07/31/16 at 11:29 Sevelamer Carbonate (Renvela) 800 mg WM PO Last administered on 07/11/16 08:18 ; Start 07/01/16 at 12:30; Stop 07/11/16 at 10:19; Status DC Sodium Chloride 1,000 ml @ 200 mls/hr Q5H IV Last administered on 07/13/16 09 :56; Start 07/13/16 at 09:00; Stop 07/13/16 at 13:59; Status DC Triamcinolone Acetonide (Kenalog 0.1% Cream) prn fungal rash for 7 Days BID PRN TOP RASH Last administered on 07/02/16 08:31; Start 07/01/16 at 11:30; Stop 07/08/16 at 11:29; Status DC CHRIS DUMONT MD Jul 15, 2016 10:53
--- NOTE | 2016-07-15 11:17 | IPN ---
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 He is sitting in the chair at the time of my visit. There is a plan for him to be discharged tomorrow. The patient denies any nausea, vomiting, dyspnea or chest pain. PHYSICAL EXAMINATION: Temperature 98.4 degrees Fahrenheit, heart rate 72 per minute and respiratory rate 18 per minute. Blood pressure 121/54 mmHg and oxygen saturation 98% on room air. Intake and output records from yesterday showed total intake 2920 and output 1850 mL. Dialysis catheter in right internal jugular vein is present. His neck is supple and without JVD or thyroid enlargement. Head is atraumatic. Ears, nose and throat are unremarkable. Heart sounds regular and lungs clear to auscultation. Abdomen soft and benign and without palpable organomegaly. Bowel sounds normal. Extremities without any cyanosis or clubbing. Today's labs show WBC count 3.7, hemoglobin 8.4 and hematocrit 27.4. Platelets 217. Sodium 136 and potassium 4.7. BUN 56 and creatinine is down to 4.47. Calcium level 8.6 and glucose 203. PROBLEMS: 1. Acute kidney injury superimposed on possible chronic kidney disease. The patient has gradual improvement in kidney function. I suspect that he has interstitial nephritis related to clindamycin which has already been stopped. His kidney function is likely to improve over next several days. He has no uremic symptoms and there is no need for dialysis at this point. He has not been dialyzed for over a week. His dialysis catheter will be removed today and he will be followed up by his primary desk pens assembler, Dr. Maldonado in [place]. 2. Hyponatremia. Sodium level has corrected as his kidney function has started to improve. No intervention is needed. 3. Anemia. The patient does have iron deficiency and renal failure. He was given one dose of Venofer 400 mg yesterday. He was also given Aranesp 200 mcg over the weekend. We anticipate that his anemia will improve over next several weeks. This can also be followed up as outpatient by his primary desk pens assembler. DISPOSITION: Plan for discharge tomorrow by the rehab service. From renal standpoint, he is stable for discharge and will be followed up by his primary desk pens assembler as an outpatient.
--- NOTE | 2016-07-15 11:17 | IPNPDOC ---
Subjective Date Seen The patient was seen on 07/15/16. Subjective Chief Complaint/HPI The patient is a 61-year-old male admitted with a reason for visit of Severe Sepsis. Events since last encounter Patient states he is feeling well. Plan is for discharge 07/16 Pulmonary: Denies: Dyspnea, Cough Cardiovascular: Denies: Chest Pain, Palpitations, Orthopnea, Paroxysmal Noc. Dyspnea, Lt Headedness Gastrointestinal: Denies: Nausea, Vomiting, Abdominal Pain, Diarrhea, Constipation Genitourinary: Denies: Dysuria, Frequency, Incontinence, Retention Objective Physical Examination General Exam: Positive: Alert Eye Exam: Positive: PERRLA ENT Exam: Positive: Atraumatic, Mucous membr. moist/pink, Pharynx Normal Chest Exam: Positive: Clear to auscultation, Normal air movement Heart Exam: Positive: Rate Normal, Regular Rhythm, Normal S1, Normal S2, Negative: Murmurs, Rubs Extremity Exam: Positive: Other (RLE erythema and wounds cont to be improving. ), Negative: Edema, Tenderness, Swelling Skin Exam: Positive: Other skin issue (chronic skin changes LEs) Assessment /Plan Problems (1) Cellulitis of right leg Status: Chronic Problem Text: * GAS Bacteremia * IV Clinda as per D/C recommendations x 14 days. Discontinued 07/13. * Afebrile * No leukocytosis (2) MARCEL (obstructive sleep apnea) Status: Chronic Problem Text: * BIPAP machine pending him home * Pt states it was not functioning appropriately * Pulmonary is consulted for further fitting and management. (3) Immunocompromised Status: Chronic Problem Text: * Outpatient medications are on hold. * Patient follows with a [employer] in [place]. (4) ESRD (end stage renal disease) Status: Chronic Problem Text: * Hemodialysis as per nephrology. Last dialyzed 07/06/16. * Nephrology following labs. (5) Chronic pain Status: Chronic Problem Text: * Pain management as per attending * Methadone * Monitor for lethargy and respiratory status. (6) Anemia in CKD (chronic kidney disease) Status: Chronic Problem Text: * Aranesp as per nephrology * Iron supplement * monitor (7) CHF (congestive heart failure) Status: Chronic Problem Text: * No signs of decompensation at this time. * Monitor (8) Diabetes mellitus type 2 with complications Status: Chronic Problem Text: * CC diet * Continue Sliding scale insulin Plan/VTE VTE Prophylaxis Ordered?: No (as per attending) VS, I&O, 24H, Fishbone Vital Signs/I&O Vital Signs Date Time Temp Pulse Resp B/P (MAP) Pulse Ox O2 Delivery O2 Flow Rate FiO2 07/15/16 08:52 18 07/15/16 08:51 72 121/54 07/15/16 06:00 98.4 98 Room Air I&O- Last 24 Hours up to 6 AM 07/15/16 06:00 Intake Total 2620 ml Output Total 2600 ml Balance 20 ml Laboratory Data 24H LABS Laboratory Tests 2 07/14/16 11:57: Bedside Glucose (Misc Panel) 177H 07/14/16 16:41: Bedside Glucose (Misc Panel) 138H 07/14/16 20:22: Bedside Glucose (Misc Panel) 236H 07/15/16 06:45: Anion Gap 10, Glomerular Filtration Rate 14.4L, Blood Urea Nitrogen 56H, Creatinine 4.47H, Sodium Level 136, Potassium Level 4.7, Chloride Level 101, Carbon Dioxide Level 25, Calcium Level 8.6L CBC/BMP Laboratory Tests 07/15/16 06:45 Red Blood Count 3.18 L, Mean Corpuscular Volume 86.1, Mean Corpuscular Hemoglobin 26.6 L, Mean Corpuscular Hemoglobin Concent 30.9 L, Red Cell Distribution Width 17.5 H, Calcium Level 8.6 L Kaylen Smith Jul 15, 2016 11:17
[2016-07-15 14:00] VITALS: BP 102/56
[2016-07-15] MEDS ORDERED: SODIUM BICARBONATE 8.4% INJ 50MEQ 50 ML VIAL As Ordered ONE (16:01)
[2016-07-15] MEDS ORDERED: LIDOCAINE 2% MDV 20 ML VIAL As Ordered ONE (16:01)
--- NOTE | 2016-07-15 17:42 | REPKIM ---
CLINICAL HISTORY: Patient presents with two tunneled single lumen right IJ catheters placed at an outside institution for dialysis. The referring nephrology service has requested to remove the TDC because it is no longer needed. PROCEDURE PERFORMED: Right IJ Tunneled Catheter Removal x 2 INTERVENTIONALIST: Dr. Ryne العراقي CONSENT: The risks, benefits and alternatives to the procedure were explained to the patient and informed written consent was obtained. MEDICATION: Local Lidocaine 2% EBL: less than 10 mL PROCEDURE/FINDINGS: The patient was brought to the interventional radiology suite and placed in the supine position with head of bed elevated. Time out procedure was performed. The area was prepped and draped in a usual sterile fashion. Local anesthesia was administered subcutaneously to each tunneled catheter exit site using 2% Lidocaine. Each catheter cuff was bluntly dissected free from the surrounding soft tissues. Each catheter was removed, inspected and confirmed to be removed in its entirety. Hemostasis was achieved by manual compression. A sterile dressing was applied. The patient tolerated the procedure well with no immediate complications. No imaging was used. Dr. العراقي was present. IMPRESSION: Tunneled dialysis catheter removal as discussed above. cc: Omega Higuera MD MTDD
[2016-07-15 20:00] VITALS: BP 127/56
[2016-07-15] MEDS: ROSUVASTATIN 10 MG TAB (CRESTOR) PO SCH (22:02)
[2016-07-16 06:00] VITALS: BP 114/64
[2016-07-16 07:30] LABS: MEAN CORPUSCULAR HEMOGLOBIN 27.1 pg (27.0-33.0); MEAN CORPUSCULAR HGB CONC 31.2 g/dl (32.0-36.5); MEAN CORPUSCULAR VOLUME 86.6 fl (80.0-96.0); WHITE BLOOD COUNT 4.2 K/mm3 (4.0-10.0)
[2016-07-16 07:45] LABS: CALCIUM LEVEL 8.9 MG/DL (8.8-10.2); CREATININE FOR GFR 4.3 MG/DL (0.70-1.30); GLOMERULAR FILTRATION RATE 15.1 (>49)
[2016-07-16] MEDS: LACTOBACILLUS ACIDOPHILUS CAP (BACID) PO SCH (08:13)
[2016-07-16] MEDS: ASPIRIN 81 MG ENTERIC TAB PO SCH (08:13)
[2016-07-16] MEDS: PANTOPRAZOLE 40MG TAB (PROTONIX) PO SCH (08:13)
[2016-07-16] MEDS: risperiDONE 2 MG TAB PO SCH (08:13)
[2016-07-16 08:14] VITALS: BP 114/64
[2016-07-16] MEDS: ESCITALOPRAM OXALATE 10 MG TAB (LEXAPRO) PO SCH (08:14)
[2016-07-16] MEDS: METOPROLOL TART 50 MG TAB PO SCH (08:14)
[2016-07-16] MEDS: METHYLPHENIDATE 5 MG TAB PO SCH ×2 (08:14→12:22)
[2016-07-16] MEDS: METHADONE 10 MG TAB (S0109) PO SCH (08:15)
[2016-07-16] MEDS ORDERED: DOLO10TA PO (09:21)
[2016-07-16] MEDS ORDERED: INSUHUMDS SC (09:21)
[2016-07-16] MEDS ORDERED: DILA2TAB2 PO (09:21)
[2016-07-16] MEDS: HumaLOG INSULIN (NovoLOG) PER UNIT SC SCH ×2 (10:00→12:23)
--- NOTE | 2016-07-16 13:13 | IPN ---
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 He is sitting in the chair at the time of my visit. He has completed his acute rehab and is going to be discharged to home today. Yesterday he had his dialysis catheter removed as his kidney function has been improving. He has not required dialysis for over a week now. The patient denies any dyspnea, chest pain, nausea or vomiting. PHYSICAL EXAMINATION: VITAL SIGNS: Temperature 98 degrees Fahrenheit, heart rate 80 per minute and respiratory rate 18 per minute. Blood pressure 114/64 mmHg and oxygen saturation 98% on room air. HEENT: His head is atraumatic. NECK: Supple and without jugular venous distention (JVD) or thyroid enlargement. Dialysis catheter removal site is without any bleeding or drainage. LUNGS: Clear to auscultation. HEART: Sounds regular. ABDOMEN: Soft and benign. EXTREMITIES: Without any cyanosis or clubbing. LABORATORY DATA: Today's labs show WBC count 4.2, hemoglobin 9.0 and hematocrit 28.9. Platelets 228. Sodium is 136 and potassium 5.0. BUN 51 and creatinine 4.30. PROBLEMS: 1. Acute renal failure possibly superimposed on chronic kidney disease. At present his kidney function is improving slowly but surely every day. He has no uremic symptoms. Dialysis catheter has already been removed. I am very optimistic that his kidney function will recover back to his prior baseline. At this point, the patient is likely to be discharged today. He will get his labs repeated by [facility] nurse and results will go to his primary prevention rn, Dr. Maldonado. The patient understands that he will followup with his primary prevention rn next week. 2. Anemia. His anemia is also improving. He was given one dose of Venofer 400 mg last week. He has also received Aranesp 200 mcg on Wednesday. His anemia is likely to improve over next few weeks. I will defer any further care to his primary prevention rn. 3. Abnormal electrolytes. All his electrolytes have returned back to normal. No intervention is indicated. The patient should follow a regular diet. DISPOSITION: From renal standpoint, the patient is ready for discharge. I have discussed with his primary prevention rn about his condition and the patient will followup with his primary prevention rn next week.
--- NOTE | 2016-07-16 23:04 | PMRDS ---
DATE OF ADMISSION: 07/01/2016 DATE OF DISCHARGE: 07/16/2016 DISCHARGE DIAGNOSES: 1. 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 2. Acute kidney injury on chronic kidney disease requiring dialysis initially. 3. Type 2 diabetes mellitus with chronic kidney disease, neuropathy, and peripheral vascular disease. 4. Chronic obstructive pulmonary disease (COPD) with obstructive sleep apnea. 5. Atherosclerotic cardiovascular disease with hypertension and hyperlipidemia. 6. Tourette's syndrome with increased right body tone. 7. Gastroesophageal reflux disease (GERD). 8. Pyoderma gangrenosum secondary to vasculitis. 9. Chronic pain syndrome. 10. Osteoarthritis of the right shoulder and hip exacerbated by right body tone. 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 This caused patient to go into progressive failure with fluid retention, pneumonia, and severe respiratory distress. He was admitted on 05/17/2016, to [facility] and started on treatment of the infection, fluid overload, respiratory distress, including drainage of the abscess and tissue sampling for pyoderma gangrenosum and other possible tissue lesions. Patient was noted to have cognitive impairment due to the stress of the multiple medical problems along with overt effects of the methadone and Dilaudid that built up during this time. Patient previously was on 160 mg per day in divided doses of methadone and 64 mg of long-acting hydromorphone in divided doses. Patient, with dialysis and fluid management and antibiotic treatment, progressed and on 07/01/2016, was felt to be stable enough for transfer to the acute rehabilitation unit here at [facility]. After arriving here, patient has been started in dialysis on 07/03/2016, and continued until about a week prior to discharge today on 07/16/2016, as this has improved. Patient also had Botox injection of the right shoulder to decrease tone on 07/07/2016, by Dr. Stock. There were no complications of these procedures. LABORATORY DATA: Has shown patient with a stable chronic anemia being treated with Epoetin during dialysis and iron supplementation with hemoglobin and hematocrit staying at about 8.9 and 28.3 throughout his admission. Most recent values from today, 07/16/2016, of hemoglobin of 9 and hematocrit of 28.9. Chemistry: Sodium 135, potassium 4.0, chloride 96, carbon dioxide 29, BUN 58, creatinine 4.38, fasting glucose 150, calcium 8.5. Today with sodium normal at 136, potassium 5.0, chloride 102, carbon dioxide 25, BUN still elevated at 51, with creatinine still elevated at 4.3, but on a downward trend throughout this week, and fasting glucose this morning of 111, and calcium normal at 8.9. HOSPITAL COURSE: Patient, following admission on 07/01/2016, was evaluated on 07/01/2016 and 07/02/2016, by the rehabilitation team, including physical therapy, occupational therapy, speech, language, pathology, rehabilitation, nursing, and podiatry, and started on a program of physical, occupational, and speech therapy, working around his dialysis time. Patient achieved his speech-language therapy goals as there was still concerns about cognition that cleared and he was discontinued from speech on 07/06/2016. He continued participating in physical and occupational therapy, progressing from maximum to total assistance in transfers, all dressing, with standby assistance for eating, to obtaining a level of minimum assistance, to contact guard assistance in transfers, standby assistance in dressing upper extremities, but remains with total assist in lower extremities and toilet training. [id number] now is touch assistance and his pain control has markedly improved, he is now down to 110 mg per day of methadone and rarely has used the Dilaudid 2 mg every 6 hours as needed for breakthrough pain. His right body tone has decreased with tone reduction techniques used by physical and occupational therapy and with the early effects of the Botox injections on 07/07/2016. His pain is tending to run about a 3/10 and previously was running about 8/10, especially in therapy. He has transitioned off the dialysis for the last week and Dr. Higuera has discussed the care plan with Dr. 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 I recommended to Dr. Boogie, who will be following up the patient as his primary care, consideration of decreasing the methadone further from his current 40 mg every morning, 30 mg at approximately 2 p.m., and 40 mg at bedtime, by about 5 mg off the total dose, and continued decrease by 5 mg every 1-2 weeks to target getting at or below 80 mg of total dose per day, and if pain control further improves with treatment of tone by Botox injection and tone management techniques in physical and occupational therapy, to decrease the pain medication further as possible. I also recommend in the home care to focus on tone control of the right upper and lower extremities along with the mobility activities of daily living (ADLs) during training and recommend that patient see Dr. Stock for evaluation of future Botox injection of the right shoulder and hip to try and continue decrease in tone and increase in his functional strength and active range of motion. Requesting patient get appointment with Dr. Stock in 3 months, Dr. Boogie for general medical followup within 2 weeks, and Dr. Nuñez to receive reports on comprehensive metabolic panels from home care nursing during the next 3 days to see if patient remains on a good track for renal recovery of his acute kidney injury on top of his chronic disease. DISCHARGE MEDICATIONS: - aspirin 81 mg enteric coated by mouth daily - Epoetin to be adjusted by Dr. Nuñez as appropriate for any dialysis needs or to receive otherwise for treatment of his chronic anemia - Lexapro 20 mg daily - Eucerin cream one dose topically twice a day to right leg and thigh - folic acid 1 mg twice a day - Dilaudid 2 mg by mouth every 6 hours as needed for breakthrough pain - Humalog insulin with sliding scale and glucometer checks before food and at bedtime four times a day - lactobacillus acidophilus one tablet by mouth twice a day - LiquaCel liquid for nutritional support one daily - methadone 10 mg take four tablets every morning, three tablets at 2 p.m., and four tablets at bedtime - metoprolol tartrate 50 mg twice a day - nystatin powder topically twice a day as needed to skin folds - pantoprazole sodium 40 mg twice a day for GERD - risperidone 2 mg by mouth daily - Crestor 20 mg by mouth daily for hyperlipidemia - Renvela 800 mg by mouth every Wednesday and Wednesday - triamcinolone acetate 1% cream topically twice a day to groin area Patient had no complications during the admission. He is discharged to home with family to receive home care nursing, physical therapy and occupational therapy, and have comprehensive metabolic panel checks every day times three which are to be sent to Dr. Nuñez. Also followup with Dr. Nuñez within 1 week, followup with Dr. Boogie within 2 weeks, and be on a consistent carbohydrate diet. Time spent on this dictation and discharge preparation was greater than 35 minutes. Addyany: Due to insurance coverage patient will use Novalog Flex Pen instead of Humalog. MTDD
== END 2016-07-16 13:00 | disposition home health service (06) | DRG 950 ==
LOC: M PM&R 12:05
PROVIDERS: ADMIT Physical Medicine & Rehabilitation; ATTEND Physical Medicine & Rehabilitation
PROC: 5A1D00Z (ICD-10-PCS; principal; 2016-07-03)
PROC: 02PY33Z Removal of Infusion Device from Great Vessel, Percutaneous Approach (ICD-10-PCS; 2016-07-15)
PROC: 0JPT0XZ Removal of Tunneled Vascular Access Device from Trunk Subcutaneous Tissue and Fascia, Open Approach (ICD-10-PCS; 2016-07-15)
DX: R26.9 Unspecified abnormalities of gait and mobility (principal); I50.21 Acute systolic (congestive) heart failure; N17.9 Acute kidney failure, unspecified; N18.6 End stage renal disease; L03.115 Cellulitis of right lower limb; E87.1 Hypo-osmolality and hyponatremia; E83.39 Other disorders of phosphorus metabolism; I13.2 Hypertensive heart and chronic kidney disease with heart failure and with stage 5 chronic kidney disease, or end stage renal disease; F95.2 Tourette's disorder; J44.9 Chronic obstructive pulmonary disease, unspecified; R53.1 Weakness; I77.6 Arteritis, unspecified; D63.1 Anemia in chronic kidney disease; G47.33 Obstructive sleep apnea (adult) (pediatric); K21.9 Gastro-esophageal reflux disease without esophagitis; E11.9 Type 2 diabetes mellitus without complications; M19.90 Unspecified osteoarthritis, unspecified site; M25.511 Pain in right shoulder; E78.5 Hyperlipidemia, unspecified; M50.90 Cervical disc disorder, unspecified, unspecified cervical region; Z79.4 Long term (current) use of insulin; Z79.891 Long term (current) use of opiate analgesic; Z79.82 Long term (current) use of aspirin; Z79.899 Other long term (current) drug therapy; Z95.828 Presence of other vascular implants and grafts; Z82.49 Family history of ischemic heart disease and other diseases of the circulatory system; Z83.79 Family history of other diseases of the digestive system; Z99.89 Dependence on other enabling machines and devices; Z88.1 Allergy status to other antibiotic agents